=== PATIENT | female | born 1995 | race Caucasian/White ===

== ENCOUNTER 2023-06-01 19:28 | Outpatient (REF) | payer OTHER, SELFPAY ==
[2023-06-07 14:09] LABS: Age Gdln ACOG Testing Note (.); IGP, rfx Aptima HPV ASCU Note (.)
== END 2023-06-01 19:29 | disposition home or self-care (01) ==
LOC: LAB 19:28
PROVIDERS: Visit Provider Obstetrics & Gynecology
DX: Z01.419 Encounter for gynecological examination (general) (routine) without abnormal findings (principal)
CPT/HCPCS: G0145

== ENCOUNTER 2023-11-23 12:51 | Outpatient (OUT) | payer OTHER, SELFPAY ==
--- NOTE | 2023-11-23 12:57 | US_ITS ---
The [address] [address] Patient Name: DOUGLAS DUNCAN MRN: [id number] date: 1995 Sex: F Assigned Patient Location: Current Patient Location: Accession/Order Number: [id number] Exam Date: 11/23/2023 12:58 Report Date: 11/23/2023 14:23 At the request of: RAMSES BONILLA Procedure: US pelvis w/ transvaginal EXAMINATION: US pelvis w/ transvaginal HISTORY: Polycystic Ovarian Syndrome E28.2 COMPARISON: No relevant comparison available. TECHNIQUE: Transabdominal and/or transvaginal sonographic examination was performed as indicated by examination type. FINDINGS: UTERUS: Normal size and appearance. Uterus size: 6.5 x 3.5 x 4.0 cm ENDOMETRIUM: Normal homogeneous appearance. Endometrial thickness: 5 mm RIGHT OVARY: Normal size and appearance and contain several small follicles. Duplex Doppler demonstrates normal waveform and flow; resistive index 0.44. Ovary size: 3.3 x 3.1 x 2.4 cm LEFT OVARY: Normal size and appearance and contain several small follicles. Duplex Doppler demonstrates normal waveform and flow; resistive index 0.49. Ovary size: 4.0 x 1.6 x 2.2 cm CUL-DE-SAC: Unremarkable. No significant free fluid. BLADDER: Unremarkable. OTHER: None. US/US pelvis w/ transvaginal IMPRESSION: 1. Unremarkable uterus and endometrium. 2. Both ovaries are normal in appearance and contain several small follicles. No significantly increased number of small peripherally located follicles to suggest polycystic ovarian syndrome. Electronically authenticated by: SOY PINA Date: 11/23/2023 14:23
== END 2023-11-23 12:52 | disposition home or self-care (01) ==
LOC: US 12:51
PROVIDERS: Visit Provider Obstetrics & Gynecology
DX: E28.2 Polycystic ovarian syndrome (principal)
CPT/HCPCS: 76830; 76856

== ENCOUNTER 2024-03-09 15:52 | Outpatient (OUT) | payer OTHER, SELFPAY ==
[2024-03-09 16:08] LABS: BOX Test Reference Lab UNITY; BOX Test Sent Out UNITY
== END 2024-03-09 15:53 | disposition home or self-care (01) ==
PROVIDERS: PCP Internal Medicine; Visit Provider Obstetrics & Gynecology
DX: Z36.0 Encounter for antenatal screening for chromosomal anomalies (principal)
CPT/HCPCS: 36415

== ENCOUNTER 2024-06-23 07:23 | Outpatient (OUT) | payer OTHER, SELFPAY ==
[2024-06-23 08:29] LABS: Basophils Percent Auto 0.3 % (0.2-2.0); Eosinophils Absolute Auto 0.1 10^3/uL (0.0-0.7); Eosinophils Percent Auto 1.1 % (0.9-7.0); Hematocrit 36.6 % (36.0-48.0); Hemoglobin 12.8 g/dL (12.0-16.0); Immature Granulocytes Abs Auto 0.03 10^3/uL (0.00-0.03); Immature Granulocytes Pct Auto 0.3 % (0.0-0.5); Lymphocytes Absolute Auto 1.5 10^3/uL (1.2-3.8); Lymphocytes Percent Auto 16.8 % (20.5-60.0); Mean Corpuscular Hemoglobin 33.4 pg (26.7-34.0); Mean Corpuscular Volume 95.6 fL (81.0-99.0); Mean Platelet Volume 9.7 fL (9.5-13.5); Monocytes Absolute Auto 0.6 10^3/uL (0.3-0.8); Monocytes Percent Auto 6.8 % (1.7-12.0); Neutrophils Absolute Auto 6.7 10^3/uL (1.4-6.5); Neutrophils Percent Auto 74.7 % (43.0-75.0); Platelet Count 182 10^3/uL (150-450); Red Blood Count 3.83 10^6/uL (4.20-5.40); Red Cell Distribution Width 12.3 % (11.0-15.0)
[2024-06-23 08:35] LABS: Glucose 1 Hour 87 mg/dL (<130)
== END 2024-06-23 07:24 | disposition home or self-care (01) ==
LOC: LAB 07:24
PROVIDERS: PCP Internal Medicine; Visit Provider Obstetrics & Gynecology
DX: Z13.1 Encounter for screening for diabetes mellitus (principal)
CPT/HCPCS: 36415; 82950; 85025

== ENCOUNTER 2024-09-04 12:10 | Outpatient (REF) | payer OTHER, SELFPAY ==
--- OUTSIDE RECORDS SUMMARY | 2024-08-21 09:40 | XMS_ITS | Encounter Summary ---
Author Organization [facility] Address [address] [facility] [place] [address] Care Team Providers Care Single Pointed Operator Name Role Phone Unavailable Primary Care Provider Unavailabl e Reason for Visit * Reason Comments Routine Visit Encounter Details Date Type Department Care Team (Late st Contact Info) Description 08/21/2024 9:40 AM EDT Routine [facility] [address] [facility] [place] [address] Valerio Cantor, DO [address] [facility] [place] [address] Third trimester ([facility]); 34 weeks gestation of ([facility]) Social History Tobacco Use Types Packs/Day Years Used Date Smoking Tobacco: Never Smokeless Tobacco: Never Estimated Date of Delivery Comme nts Yes 10/03/2024 Based on last me nstrual period of 12/28/2023 Sex and Gender Information Value Date Recorded Sex Assigned at Not on file Legal Sex Female 11:47 PM EDT Gender Identity Not on file Sexual Orientation Not on file documented as of this encounter Last Filed Vital Signs Vital Sign Reading Time Taken Comments Blood Pressure 118/62 08/21/2024 10:18 AM EDT Pulse - - Temperature - - Respiratory Rate - - Oxygen Saturation - - Inhaled Oxygen Concentration - - Weight 65.3 kg (144 lb) 08/21/2024 10:18 AM EDT Height - - Body Mass Index 24.72 07/10/2024 9:30 AM EDT documented in this encounter Progress Notes * Laura Millan LPN - 08/21/2024 9:40 AM EDT Reason for Appointment: Patient ID: Carmelina Duke is a 29 y.o. female who presents for Routine Visit Patient presents today for Return OB appointment. MEDICATIONS Current Outpatient Medications Medication Instructions MAGnesium-Oxide 400 mg, Daily Vit-Fe Fumarate-FA (PNV FOLIC ACID + IRON PO) PNV Folic Acid + Iron tretinoin (Retin-A) 0.1 % cream APPLY CREAM TOPICALLY TO AFFECTED AREA NIGHTLY ALLERGIES Allergies Allergen Reactions Aldactone [Spironolactone] Rash Possible allergy; not likely as rash was only on the neck and has had rash since being off of Aldactone PROBLEMS Active Ambulatory Problems Diagnosis Date Noted No Active Ambulatory Problems Resolved Ambulatory Problems Diagnosis Date Noted No Resolved Ambulatory Problems No Additional Past Medical History HISTORY PAST MEDICAL HISTORY SOCIAL HISTORY History reviewed. No pertinent past medical history. Social History Tobacco Use Smoking status: Never Smokeless tobacco: Never Substance Use Topics Alcohol use: Not on file Drug use: Not on file FAMILY HISTORY No family history on file. SURGICAL HISTORY History reviewed. No pertinent surgical history. REVIEW OF SYSTEMS Review of Systems: Review of Systems Constitutional: Negative. HENT: Negative. Eyes: Negative. Respiratory: Negative. Cardiovascular: Negative. Gastrointestinal: Negative. Genitourinary: Negative. Musculoskeletal: Negative. Skin: Negative. Neurological: Negative. All other systems reviewed and are negative. Hematological: Negative. Endocrine: Negative. Allergic/Immunologic: Negative. OBJECTIVE Objective: Physical Exam Constitutional: Appearance: Normal appearance. She is well-developed. Cardiovascular: Rate and Rhythm: Normal rate and regular rhythm. Pulmonary: Effort: Pulmonary effort is normal. Breath sounds: Normal breath sounds. Abdominal: General: Bowel sounds are normal. There is no distension. Palpations: Abdomen is soft. Tenderness: There is no abdominal tenderness. There is no guarding or rebound. Musculoskeletal: General: No swelling. Normal range of motion. Right lower leg: No edema. Left lower leg: No edema. Neurological: Mental Status: She is alert and oriented to person, place, and time. Skin: General: Skin is warm and dry. Psychiatric: Mood and Affect: Mood normal. Behavior: Behavior normal. Vitals and nursing note reviewed. Exam conducted with a copy supervisor present. Vitals: Estimated body mass index is 24.72 kg/m?? as calculated from the following: Height as of 5/13/25: 5' 4 . Weight as of this encounter: 144 lb. BP: 118/62 Patient's last menstrual period was 12/28/2023. ASSESSMENT & PLAN ICD-10-CM 1. Third trimester ([facility] Z34.93 Urine dip 2. 34 weeks gestation of ([facility] Z3A.34 Urine dip Return OB: Patient presents today for a routine obstetrics appointment. Patient is currently 33w6d . Patient states she is doing well but has complaints of being tired due to current . Patient has verbalizes frequent movement. labor precautions was discussed/given and patient was instructed to perform kick counts three times a day. Orders Placed This Encounter Procedures Urine dip Follow Up: Patient is to return to office in 2 week for routine OB appointment. Documented by Laura Millan LPN on behalf of: Valerio Cantor DO documented in this encounter Plan of Treatment Upcoming Encounters Date Type Department Care Team (Late st Contact Info) Description 09/11/2024 9:40 AM EDT Routine [facility] [address] [place] [phone] Valerio Cantor, [address] [place] [address] 09/18/2024 9:40 AM EDT Routine [facility] [address] [place] [phone] Valerio Cantor [address] [place] [address] 09/25/2024 9:40 AM EDT Routine [facility] [address] [facility] [place] [id number] Valerio Cantor, DO [address] [facility] [place] [address] 10/02/2024 9:40 AM EDT Routine [facility] [address] [facility] [place] [address] Valerio Cantor, DO [address] [facility] [place] [address] documented as of this encounter Procedures Procedure Name Priority Date/Time Associated Diagnosis Comments POCT URINALYSIS DIPSTICK Routine 08/21/2024 10:24 AM EDT Third trimester ([facility]) 34 weeks gestation of ([facility]) documented in this encounter Results * Urine dip (08/21/2024 10:24 AM EDT) Color, UA Yellow Clarity, UA Clear Glucose, UA Negative Negative - 2000(110) ++++ mg/dL Bilirubin, UA Negative Negative - 4(70) +++ mg/dL Ketones, UA Negative Negative - 160(16) ++++ mg/dL Spec Grav, UA 1.020 1 - 1.03 Blood, UA Negative Negative - 50 Mika/mcL pH, UA 7.5 5 - 9 Protein, UA Negative Negative - 2000(20) ++++ mg/dL Urobilinogen, UA 0.2 0.2 - 12 mg/dL Leukocytes, UA Trace Negative - 500+++ Meena/mcL Nitrite, UA Negative Negative - Positive Urine 08/21/2024 10:2 4 AM EDT Valerio Cantor DO POINT OF CARE TEST ENTER/EDIT OR DERABLES Final Result documented in this encounter Visit Diagnoses Diagnosis Third trimester ([facility]) state, incidental 34 weeks gestation of ([facility]) documented in this encounter
--- OUTSIDE RECORDS SUMMARY | 2024-09-04 09:40 | XMS_ITS | Encounter Summary ---
Author Organization [facility] Address [address] [facility] [place] [address] Care Team Providers Care Pill Machine Operator Name Role Phone Unavailable Primary Care Provider Unavailabl e Reason for Visit * Reason Comments Routine Visit Encounter Details Date Type Department Care Team (Late st Contact Info) Description 09/04/2024 9:40 AM EDT Routine [facility] [address] [facility] [place] [address] Valerio Cantor, DO [address] [facility] [place] [address] Third trimester ([facility]); 35 weeks gestation of ([facility]); Heartburn during in third trimester ([facility]) Social History Tobacco Use Types Packs/Day Years [...] EDT Reason for Appointment: Patient ID: Carmelina uDke is a 29 y.o. female who presents [...] nursing note reviewed. Exam conducted with a gauge and instrument inspector present. Vitals: Estimated body mass index is 25.06 kg/m?? as calculated from the following: Height as of 25: 5' 4 . Weight as of this encounter: 146 lb. BP: 112/70 Patient's last menstrual period was 12/28/2023. ASSESSMENT & PLAN ICD-10-CM 1. Third trimester ([facility]) Z34.93 POCT urinalysis dipstick manually resulted CULTURE, GROUP B STREP WITH SUSCEPTIBLITY CULTURE, GROUP B STREP WITH SUSCEPTIBLITY 2. 35 weeks gestation of ([facility]) Z3A.35 Patient is doing well but has [...] AM EDT Routine [facility] [address] [facility] [place] [place] [address] Vlaerio Cantor DO [address] [place] [address] 09/18/2024 9:40 AM EDT Routine [facility] [address] [place] [address] Valerio Cantor DO [address] [place] [address] 09/25/2024 9:40 AM EDT Routine [facility] [address] [place] [address] Valerio Cantor, DO [address] [place], [place] [id number] 10/02/2024 9:40 AM EDT Routine [facility] [address] [facility] [place] [phone] Valerio Cantor, DO [address] [facility] [place] [address] Scheduled Orders Name Type Priority Associated Diagnoses Orde r Schedule CULTURE, GROUP B STREP WITH SUSCEPTIBLITY Lab Routine Third trimester ([facility]) Expected: 09/04/2024, Expires: 09/04/2025 documented as of this encounter Procedures Procedure Name Priority Date/Time Associated Diagnosis Comments POCT URINALYSIS DIPSTICK Routine 09/04/2024 10:04 AM EDT Third trimester ([facility]) documented in this encounter Results * POCT urinalysis dipstick manually resulted (09/04/2024 10:04 AM EDT) Color, UA Yellow Clarity, UA Clear Glucose, UA Negative Negative - 1999(110) ++++ mg/dL Bilirubin, UA Negative Negative - [...] this encounter Visit Diagnoses Diagnosis Third trimester ([facility]) state, incidental 35 weeks gestation of ([facility] Heartburn during in third trimester ([facility]) documented in this encounter
--- OUTSIDE RECORDS SUMMARY | 2024-09-04 09:43 | XMS_ITS ---
Author Name Auto Generated Organization OHIP Support Name Relationship Address Phone MANOHAR DUNCAN Next of Kin [address] [place] [address] + MANOHAR DUNCAN Next of Kin [address] [place] [address] + MANOHAR DUNCAN Next of Kin [address] [place] [address] + MANOHAR DUNCAN Next of Kin [address] [place] [address] + MANOHAR DUNCAN Next of Kin [address] [place] [address] + MANOHAR DUNCAN Next of Kin [address] [place] [address] + MANOHAR DUNCAN Next of Kin [address] [place] [address] + MANOHAR DUNCAN Next of Kin [address] [place] [address] + MANOHAR DUNCAN Next of Kin [address] [place] [address] + MANOHAR DUNCAN Next of Kin [address] [place] [address] + MANOHAR DUNCAN Next of Kin [address] [place] [address] + MANOHAR DUNCAN Next of Kin [address] [place] [address] + MANOHAR DUNCAN Next of Kin [address] [place] [address] + MANOHAR DUNCAN Next of Kin [address] [place] [address] + MANOHAR DUNCAN Next of Kin Unknown Unavailable NOT GIVEN Next of Kin Unknown Unavailable MANOHAR DUNCAN Next of Kin [address] [place] [address] + Care Team Providers Care Food Service Specialist Name Role Phone CHAD, RAMSES Attending Unavailable CHAD, RAMSES Attending Unavailable CHAD, RAMSES Attending Unavailable CHAD, RAMSES Attending Unavailable CHAD, RAMSES Attending Unavailable CHAD, RAMSES Attending Unavailable CHAD, RAMSES Attending Unavailable CHAD, RAMSES Referring Unavailable LIZZIE, GOLDIE Attending Unavailable CHAD, RAMSES Attending Unavailable CHAD, RAMSES Attending Unavailable [facility] Attending Unavailable PROBLEMS DATE TYPE CONDITION / CODE ATTENDING STATUS NADINE RCE 11/30/2023 Unknown Palpitations / R00.2(ICD-10) [facility] 11/30/2023 Unknown Acne vulgaris / L70.0(ICD-10) [facility] 11/30/2023 Unknown new patient / UNK(Unknown) [facility] PROCEDURES No Procedure Records Found RESULTS US OB FOLLOW UP TRANSABDOMINAL APPROACH Observed: 08/07/2024 8:52 AM Status: F Source: [facility] EPIC Order Comment: US OB SCAN FO R GROWTH Estimated Date of Delivery: 10/03/24 Gestational Age as of 07/10/2024: 27w6d EXAM: US OB FOLLOW UP TRANSA BDOMINAL APPROACH HISTORY: Inconsistent size. COMPARISON: Ob ultrasound 06/14/2024. TECHNIQUE: Two-dimensional transabdominal grayscale ultrasound imaging of the pelvis was performed. FINDINGS: Gestation: Single Presentation: Cephalic Cardiac Activity: 139 beats per minute Amniotic Fluid Index: 12.2 cm MEASUREMENTS: BPD: 7.9 cm EGA: 31 weeks 5 days HC: 29.0 cm EGA: 31 weeks 6 days AC: 28.0 cm EGA: 32 weeks 0 days FL: 6.0 cm EGA: 31 weeks 2 days HC/AC Ratio: 1.03 The gestational age by today's ultrasound is 31 weeks 5 days (+/- 16 days gestation). Estimated Weight: 1830 grams, +/- 275 grams ( 4 lb 1 oz). Weight Percentile for gestational age: 35 % IMPRESSION: 1. Single, live intrauterine gestation 31 weeks, 6 days by LMP. Today's ultrasound measurements correlate with a gestational age of 31 weeks 5 days. Estimated weight is 1830 grams, +/- 275 grams ( 4 lb 1 oz) which correlates to 35 %. KIMBERLYN is 10/04/2024. Interpreted by: Electronically signed by MALCOM SCHULTZ II, MD, PHD at 08-Aug-2024 08:23:33 AM [facility] US OB LIMITED 1+ FETUSES Observed: 06/14 7:54 AM Status: F Source: [facility] EPIC Order Comment: US OB INCOMPL ETE ANATOMY W US OB TRANSVAGINAL Estimated Date of Delivery: 10/03/24 Gestational Age as of 05/17/2024: 20w1d EXAM: US OB LIMITED 1+ FETUS ES HISTORY: Follow up anatomy. COMPARISON: Ob ultrasound 05/17/2024. TECHNIQUE: Two-dimensional transabdominal grayscale ultrasound imaging of the pelvis was performed. FINDINGS: Gestation: Single Presentation: Cephalic Cardiac Activity: 142 beats per minute Placental Location: Posterior with no sonographic abnormalities identified. Cervical canal: Not well visualized Amniotic Fluid: Appears adequate ANATOMY Four Chamber Heart: Unremarkable LVOT: Unremarkable RVOT: Unremarkable IMPRESSION: 1. Single, live intrauterine gestation 24 weeks, 1 days by LMP. KIMBERLYN is 10/03/2024. 2. Unremarkable follow-up anatomy of the four-chamber heart and outflow tracts. Interpreted by: Electronically signed by MALCOM SCHULTZ II, MD, PHD at 16-Jun-2024 06:46:29 PM [facility] US OB 14+ WEEKS ANATOMY SCAN Observed: 0 04/18/2024 11:31 AM Status: F Source: [facility] EPIC Order Comment: US OB ANATOMY SINGLE W US OB CERVICAL LENGTH Estimated Date of Delivery: 10/03/24 Gestational Age as of 04/18/2024: 16w0d EXAM: US OB 14+ WEEKS ANATOM Y SCAN HISTORY: anatomy. COMPARISON: Ob ultrasound 03/01/2024. TECHNIQUE: Two-dimensional transabdominal grayscale ultrasound imaging of the pelvis was performed. FINDINGS: Gestation: Single Presentation: Breech Cardiac Activity: 153 beats per minute Placental Location: Posterior with no sonographic abnormalities identified. Distance from Placental Tip to Cervix: 4 cm Cervical Length: 3.8 cm Amniotic Fluid: Appears adequate MEASUREMENTS: BPD: 4.3 cm EGA: 19 weeks 0 days HC: 16.5 cm EGA: 19 weeks 1 days AC: 15.7 cm EGA: 20 weeks 6 days FL: 3.2 cm EGA: 19 weeks 6 days HC/AC Ratio: 1.05 The gestational age by today's ultrasound is 19 weeks 5 days (+/- 10 days gestation). Estimated Weight: 339 grams, +/- 51 grams ( 0 lb 12 oz). Weight Percentile for gestational age: 49 % ANATOMY C-Spine: Unremarkable T-Spine: Unremarkable L-Spine: Unremarkable Sacrum: Unremarkable Four Chamber Heart: Unremarkable LVOT: Not visualized RVOT: Not visualized Stomach: Unremarkable Kidneys: Unremarkable Bladder: Unremarkable Diaphragm: Unremarkable Cord insertion: Unremarkable Cord vessels: Three Lateral Ventricles: Unremarkable Cerebellum: Unremarkable Cisterna Magna: Unremarkable Posterior Fossa: Unremarkable Right Femur: Unremarkable Left Femur: Unremarkable Right Tib/Fib: Unremarkable Left Tib/Fib: Unremarkable Right Rad/Ulnar: Unremarkable Left Rad/Ulnar: Unremarkable Right Humerus: Unremarkable Left Humerus: Unremarkable Nose/Lips: Unremarkable Orbits: Unremarkable IMPRESSION: 1. Single, live intrauterine gestation 20 weeks, 1 days by LMP. Today's ultrasound measurements correlate with a gestational age of 19 weeks 5 days. Estimated weight is 339 grams, +/- 51 grams ( 0 lb 12 oz) which correlates to 49 %. KIMBERLYN is 10/06/2024. 2. Unremarkable anatomy with limited visualization of the outflow tracts. A short-term follow-up ultrasound is recommended. Electronically Signed:Electronically signed by MALCOM SCHULTZ II, MD, PHD at 18-May-2024 08:29:54 PM [facility] US OB TRANSVAGINAL Observed: 03/01/2024 8:31 AM Status: F Source: [facility] TITLE OF EXAM: US OB TRANSVA GINAL REASON FOR EXAM: [id number]&NASEEM&RADIOLOGY GR TECHNIQUE: Grayscale, color, and M-mode Doppler evaluation of the pelvis. COMPARISON: None. PREGNANCIES: : 2, Para: 1, Aborta: 0 LMP: 12/28/2023 KIMBERLYN by LMP: 10/03/2024 GA by LMP: 9 weeks, 1 day FINDINGS: AUA: 8 weeks, 5 days (+/-5 days) KIMBERLYN by US: 10/06/2024 Uterus: There is a gestational sac and 0.4 cm yolk sac within the uterine body/fundus. Live embryo within the gestational sac without evident abnormality. Gestational sac measures 5.2 x 2.5 x 4.2 cm (9 weeks, 2 days). Mayflower rump length is 2.1-2.2 cm (8 weeks, 5-6 days). heart rate is 172 bpm. No appreciable subchorionic hemorrhage or other abnormality. Cervical length is 3.7 cm. Right ovary: 3.1 x 1.9 x 3.8 cm (volume 11.7 mL). Present color flow. Left ovary: 2.6 x 1.2 x 2.8 cm (volume 4.4 mL). Present color flow IMPRESSION: 1. Single live intrauterine gestation sonographically measuring 8 weeks, 5 to 6 days. 2. No sonographically appreciable abnormality of the or maternal structures. DICTATED ON: 03/01/2024 11:25 AM This report has been electronically signed and approved by the interpreting radiologist. ALLERGIES DATE TYPE / CODE NAME / CODE REACTION SEVERITY SOURCE Drug Class/234575932(O MED CT) NO KNOWN ALLERGIES [facility] ENCOUNTERS ADMIT/DISCHARGE ACCOUNT NUMBER ADMITTING ENCOUNTER CLASS LOCATION SOURCE 09/04/2024/09/05/19 [id number] Ambulatory Building:[facility] 08/21/2024/08/22/19 [id number] Ambulatory Building:[facility] 08/07/2024/08/08/19 25 [id number] Ambulatory Building:[facility] 08/07/2024/08/08/19 25 [id number] Ambulatory Building:[facility] 07/25/2024/07/26/19 [id number] Ambulatory Building:[facility] 07/10/2024/07/11/19 [id number] Ambulatory Building:[facility] 06/14/2024/06/15/19 [id number] Ambulatory Building:[facility] 06/14/2024/04/17/20 25 [id number] Ambulatory Building:[facility] EP[facility] 05/17/2024/05/18/19 25 [id number] Ambulatory Building:[facility] 05/17/2024/05/18/19 25 [id number] Ambulatory Building:[facility] 04/18/2024/04/18/19 25 [id number] Ambulatory Building:[facility] 03/21/2024/03/21/19 25 [id number] Ambulatory Building:[facility] 03/01/2024/03/01/19 25 [id number] Ambulatory Building:[facility] 03/01/2024/03/01/19 25 [id number] Ambulatory Building:[facility] 11/30/2023/11/30/19 24 [id number] Ambulatory Buildin 18 [facility] 11/09/2023/11/09/19 24 [id number] Ambulatory Building:[facility] EPIC PAYERS ENCOUNTER GUARANTOR PAYER SUBSCRIBER SOURCE 09/04/2024 DOUGLAS RODRÍGUEZ: [place] [address]Ifj: (HP) Primary Insurance:UC HEALTHPolicy Number: [id number] Date:2013-02-28 MANOHAR LOVELACEERDOB: [id number] [place] [address] [facility] 08/21/2024 DOUGLAS RODRÍGUEZ: [place] [address]Xci: (HP) Primary Insurance:UC HEALTHPolicy Number: [id number] Date:2013-02-28 MANOHAR DESIREEB: [id number] [place] [address] [facility] 08/07/2024 DOUGLAS RAMÍREZB: [place] [address]Ibl: (HP) Primary Insurance:UC HEALTHPolicy Number: [id number] Date:2013-02-28 [facility]: [id number] [place] [address] [facility] EP[facility] 08/07/2024 DOUGLASSAURABH LOVELACEERDOB: [place] [address]Zaq: (HP) Primary Insurance:UC HEALTHPolicy Number: [id number] Date:2013-02-28 [facility]: [id number] [place] [address] [facility] EP[facility] 07/25/2024 DOUGLAS LOVELACEERDOB: [place] [address]Wjt: (HP) Primary Insurance:UC HEALTHPolicy Number: [id number] Date:2013-02-28 [facility]: [id number] [place] [address] [facility] EPIC 07/10/2024 DOUGLAS DUNCANDOB: [place] [address]Yjf: (HP) Primary Insurance:UC HEALTHPolicy Number: [id number] Date:2013-02-28 [facility]: [id number] [place] [address] [facility] EP[facility] 06/14/2024 DOUGLAS LOVELACEERDOB: [place] [address]Xie: (HP) Primary Insurance:[facility] HEALTHCAREPolicy Number: [id number] Date:2013-02-28 [facility]: [id number] [place] [address] [facility] EP[facility] 06/14/2024 DOUGLAS RAMÍREZB: [place] [address]Klo: (HP) Primary Insurance:UC HEALTHPolicy Number: [id number] Date:2013-02-28 [facility]: [id number] [place] [address] [facility] EP[facility] 05/17/2024 DOUGLASSAURABH LOVELACEERDOB: [place] [address]Dai: (HP) Primary Insurance:UC HEALTHPolicy Number: [id number] Date:2013-02-28 [facility]: [id number] [place] [address] [facility] EP[facility] 05/17/2024 DOUGLAS LOVELACEERDOB: [place] [address]Ccn: (HP) Primary Insurance:UC HEALTHPolicy Number: [id number] Date:2013-02-28 [facility]: [id number] [place] [address] [facility] EP[facility] 04/18/2024 DOUGLAS LOVELACEERDOB: [place] [address]Gtd: (HP) Primary Insurance:UC HEALTHPolicy Number: [id number] Date:2013-02-28 [facility]: [id number] [place] [address] [facility] EP[facility] 03/21/2024 DOUGLAS LOVELACEERDOB: [place] [address]Zvb: (HP) Primary Insurance:[facility] HEALTHCAREPolicy Number: [id number] Date:2013-02-28 [facility]: [id number] [place] [address] [facility] EPIC 03/01/2024 DOUGLAS DUNCANDOB: [place] [address]Agw: (HP) Primary Insurance:UC HEALTHPolicy Number: [id number] Date:2013-02-28 MANOHAR LOVELACEHARIKA: [id number] [place] [address] [facility] 03/01/2024 DOUGLAS DESIREEB: [place] [address]Gkg: (HP) Primary Insurance:UC HEALTHPolicy Number: [id number] Date:2013-02-28 MANOHAR LOVELACEARNALDOB: [id number] [place] [address] [facility] 11/30/2023 DOUGLAS DESIREEB: [address] [place], [place] [address]Ito: (HP) [facility]: [id number] Date:2013-02-28 MANOHAR LOVELACEARNALDOB: [id number] [address] [place], [place] [address]Lxa: (HP) () [facility] 11/09/2023 DOUGLAS LOVELACEARNLADOB: [place] [address]Ztx: (HP) Primary Insurance:UC HEALTHPolicy Number: [id number] Date:2013-02-28 MANOHAR DESIREEB: [id number] [place] [address] [facility]
--- OUTSIDE RECORDS SUMMARY | 2024-09-04 12:12 | XMS_ITS | Encounter Summary ---
Author Organization [facility] Healthcare Address [address] [facility] [address] [place] [address] Care Team Providers Care Senior Net Engineer Name Role Phone Unavailable Primary Care Provider Unavailabl e Encounter Details Date Type Department Care Team (Late st Contact Info) Description 01/20/2024 Abstract [facility] OB [address] [place] [address] Valerio Cantor DO [address] [place], [facility]11 Social History Tobacco Use Types Packs/Day Years Used Date Smoking Tobacco: Never Smokeless Tobacco: Never Comments No Sex and Gender Information Value Date Recorded Sex Assigned at Not on file Legal Sex Female 11:47 PM EDT Gender Identity Not on file Sexual Orientation Not on file documented as of this encounter Plan of Treatment Upcoming Encounters Date Type Department Care Team (Late st Contact Info) Description 09/11/2024 9:40 AM EDT Routine [facility] B[facility] OB [address] [place] [address] Valerio Cantor DO [address], [facility]11 09/18/2024 9:40 AM EDT Routine [facility] OB [address] [place] [address] Valerio Cantor DO [address], [facility]11 09/25/2024 9:40 AM EDT Routine [facility] OB [address] [facility] [place] [phone] Valerio Cantor, [address] [place] [place] [address] 10/02/2024 9:40 AM EDT Routine [facility] OB [address] [place] [address] [place] [phone] Valerio Cantor, [address] [place] [address] documented as of this encounter Visit Diagnoses Not on filedocumented in this encounter
--- OUTSIDE RECORDS SUMMARY | 2024-09-04 12:12 | XMS_ITS | Encounter Summary ---
Author Organization [facility] Healthcare Address [address] [facility] [address] Care Team Providers Care Lathe Machine Operator Name Role Phone Unavailable Primary Care Provider Unavailabl e Encounter Details Date Type Department Care Team (Late st Contact Info) Description 11/16/2023 Abstract [facility] BCP OB [address] [place] [address] Valerio Cantor DO [address], [facility]11 Social History Tobacco Use Types Packs/Day Years [...] Routine [facility] B[facility] OB [address] [place] [address] Valerio Cantor DO [address], [facility]11 09/18/2024 9:40 AM EDT Routine [facility] OB [address] [place] [address] Valerio Cantor DO [address], [facility]11 09/25/2024 9:40 AM EDT Routine [facility] OB [address] [facility] [place] [phone] Valerio Cantor, [address] [place] [address] 10/02/2024 9:40 AM EDT Routine [facility] OB [address] [place] [address] [place] [phone] Valerio Cantor, [address] [place] [address] documented as of this encounter Visit Diagnoses Not on filedocumented in this encounter
--- OUTSIDE RECORDS SUMMARY | 2024-09-04 12:12 | XMS_ITS | Encounter Summary ---
Author Organization [facility] Healthcare Address [address] [facility] [place] [address] Care Team Providers Care Websphere Process Server Developer Name Role Phone Unavailable Primary Care Provider Unavailabl e Encounter Details Date Type Department Care Team (Late st Contact Info) Description 11/09/2023 Abstract [facility] BCP OB [address] [place] [address] Valerio Cantor DO [address], [facility]11 Social History Tobacco Use Types Packs/Day [...] Routine [facility] BCP OB [address] [place] [address] Valerio Cantor DO [address], [facility]11 09/18/2024 9:40 AM EDT Routine [facility] B[facility] OB [address] [place] [address] Valerio Cantor DO [address], [facility]11 09/25/2024 9:40 AM EDT Routine [facility] OB [address] [facility] [place] [phone] Valerio Cantor, [address] [place] [address] 10/02/2024 9:40 AM EDT Routine [facility] OB [address] [place] [address] [place] [phone] Valerio Cantor, [address] [place] [address] documented as of this encounter Visit Diagnoses Not on filedocumented in this encounter
--- OUTSIDE RECORDS SUMMARY | 2024-09-04 12:12 | XMS_ITS | Encounter Summary ---
Author Organization [facility] Healthcare Address [address] [facility] [place] [address] Care Team Providers Care Snow Remover Name Role Phone Unavailable Primary Care Provider Unavailabl e Encounter Details Date Type Department Care Team (Late Contact Info) Description 08/21/2024 Romeboo flowsheet [facility] B[facility] OB [address] [place] [address] Valerio Cantor DO [address] [place], [facility]11 Social History Tobacco Use Types Packs/Day Years [...] Encounters Date Type Department Care Team (Late Contact Info) Description 09/11/2024 9:40 AM EDT Routine [facility] OB [address] [place] [address] Valerio Cantor DO [address] [place] [address] [place] [address] 09/18/2024 9:40 AM EDT Routine [facility] OB [address] [place] [address] Valerio Cantor, [address] [place] [address] 09/25/2024 9:40 AM EDT Routine [facility] OB [address] [place] [address] [place] [address] Valerio Cantor, [address] [place], [place] [id number] 10/02/2024 9:40 AM EDT Routine [facility] OB [address] [place] [address] [place] [address] [place], [place] [phone] documented as of this encounter Visit Diagnoses Not on filedocumented in this encounter
--- OUTSIDE RECORDS SUMMARY | 2024-09-04 12:12 | XMS_ITS | Encounter Summary ---
Author Organization [facility] Healthcare Address [address] [facility] [place] [address] Care Team Providers Care Sql Developer Dba Name Role Phone Unavailable Primary Care Provider Unavailabl e Encounter Details Date Type Department Care Team (Late st Contact Info) Description 11/24/2023 Abstract [facility] BCP OB [address] [place] [address] Valerio Cantor DO [address], [facility]11 Social History Tobacco Use Types Packs/Day Years [...] Routine [facility] BCP OB [address] [place] [address] Valerio Cantor DO [address], [facility]11 09/18/2024 9:40 AM EDT Routine [facility] B[facility] OB [address] [place] [address] Valerio Cantor DO [address], [facility]11 09/25/2024 9:40 AM EDT Routine [facility] OB [address] [facility] [place] [phone] Valerio Cantor, [address] [place] [address] 10/02/2024 9:40 AM EDT Routine [facility] OB [address] [place] [address] [place] [phone] Valerio Cantor, [address] [place] [address] documented as of this encounter Visit Diagnoses Not on filedocumented in this encounter
--- OUTSIDE RECORDS SUMMARY | 2024-09-04 12:12 | XMS_ITS | Encounter Summary ---
Author Organization [facility] Healthcare Address [address] [facility] [place] [address] Care Team Providers Care Environmental Services Tech Name Role Phone Unavailable Primary Care Provider Unavailabl e Encounter Details Date Type Department Care Team (Late st Contact Info) Description 12/14/2023 Abstract [facility] B[facility] OB [address] [place] [address] Valerio Cantor DO [address], [facility]11 Social History Tobacco Use Types Packs/Day [...] Routine [facility] BCP OB [address] [place] [address] Valerio Cantor DO [address], [facility]11 09/18/2024 9:40 AM EDT Routine [facility] B[facility] OB [address] [place] [address] Valerio Cantor DO [address], [facility]11 09/25/2024 9:40 AM EDT Routine [facility] B[facility] OB [address] [facility] [place] [phone] Valerio Cantor, [address] [place] [address] 10/02/2024 9:40 AM EDT Routine [facility] OB [address] [place] [address] [place] [phone] Valerio Cantor, [address] [place] [address] documented as of this encounter Visit Diagnoses Not on filedocumented in this encounter
--- OUTSIDE RECORDS SUMMARY | 2024-09-04 12:12 | XMS_ITS | Encounter Summary ---
Author Organization [facility] Address [address] [facility] [place] [address] Care Team Providers Care Manager Event Name Role Phone Unavailable Primary Care Provider Unavailabl e Encounter Details Date Type Department Care Team (Late st Contact Info) Description 11/23/2023 Clinisync Result Encounter [facility] External Department Unsolicited Ramses Cantor, DO [address], [facility]11 Social History Tobacco Use Types Packs/Day Years [...] BCP [place] [address] [place] [address] Ramses Cantor, DO [address], [place] [id number] 09/18/2024 9:40 AM EDT Routine [facility] BCP OB [address] [place] [address] Ramses Cantor, DO [address] [place] [address] 09/25/2024 9:40 AM EDT Routine [facility] BCP OB [address] [facility] [phone] Ramses Cantor, [address] [place] [address] 10/02/2024 9:40 AM EDT Routine [facility] BCP OB [address] [facility] [phone] Ramses Cantor, [address] [place] [address] documented as of this encounter Procedures Procedure Name Priority Date/Time Associated Diagnosis Comments US PELVIS W/ TRANSVAGINAL 11/23/2023 2:23 PM EDT documented in this encounter Results * US PELVIS W/ TRANSVAGINAL (11/23/2023 2:23 PM EDT) Anatomical Region Laterality Modality Other 11/23/2023 2:23 PM EDT Narrative 11/23/2023 2:26 PM EDT The [address] [address] Ultrasound Report Signed Patient: CARMELINA DUKE MR#: [id number] : 1995 Acct:[id number] Age/Sex: 28 / F ADM Date: 11/23/23 Loc: US Attending Dr: Ramses Cantor D.O. Ordering Physician: Ramses Cantor D.O. Date of Service: 11/23/23 Procedure(s): US pelvis w/ transvaginal Accession Number(s): [id number] cc: Ramses Cantor D.O.; Physician,Non-Staff MTimur The [address] [address] Patient Name: CARMELINA DUKE MRN: [id number] date: 1995 Sex: F Assigned Patient Location: US Current Patient Location: US Accession/Order Number: [id number] Exam Date: 11/23/2023 12:58 Report Date: 11/23/2023 14:23 At the request of: RAMSES CANTOR Procedure: US pelvis w/ transvaginal EXAMINATION: US pelvis w/ transvaginal HISTORY: Polycystic Ovarian Syndrome E28.2 COMPARISON: No relevant comparison available. TECHNIQUE: Transabdominal and/or transvaginal sonographic examination was performed as indicated by examination type. FINDINGS: UTERUS: Normal size and appearance. Uterus size: 6.5 x 3.5 x 4.0 cm ENDOMETRIUM: Normal homogeneous appearance. Endometrial thickness: 5 mm RIGHT OVARY: Normal size and appearance and contain several small follicles. Duplex Doppler demonstrates normal waveform and flow; resistive index 0.44. Ovary size: 3.3 x 3.1 x 2.4 cm LEFT OVARY: Normal size and appearance and contain several small follicles. Duplex Doppler demonstrates normal waveform and flow; resistive index 0.49. Ovary size: 4.0 x 1.6 x 2.2 cm CUL-DE-SAC: Unremarkable. No significant free fluid. BLADDER: Unremarkable. OTHER: None. US/US pelvis w/ transvaginal IMPRESSION: 1. Unremarkable uterus and endometrium. 2. Both ovaries are normal in appearance and contain several small follicles. No significantly increased number of small peripherally located follicles to suggest polycystic ovarian syndrome. Electronically authenticated by: AAYUSH NAVARRO Date: 11/23/2023 14:23 Dictated By: Aayush Navarro M.D. Signed By: 11/23/23 1426 DD/ 1423 TD/TT: [facility] Curator: Procedure Note Radiology, Radiologist, MD - 11/23/2023 [place] [address] Ultrasound Report Signed Patient: CARMELINA DUKE#: [id number] : 1995Acct:[id number] Age/Sex: 28 / FADM Date: 11/23/23 Loc: US Attending Dr: Ramses Cantor D.O. Ordering Physician: Ramses Cantor D.O. Date of Service: 11/23/23 Procedure(s): US pelvis w/ transvaginal Accession Number(s): [id number] cc: Ramses Cantor D.O.; Physician,Non-Staff [place] [address] [address] Patient Name: CARMELINA DUKE MRN: [id number] date: 1995 Sex: F Assigned Patient Location: US Current Patient Location: US Accession/Order Number: [id number] Exam Date: 11/23/2023 12:58 Report Date: 11/23/2023 14:23 At the request of: RAMSES CANTOR Procedure: US pelvis w/ transvaginal EXAMINATION: US pelvis w/ transvaginal HISTORY: Polycystic Ovarian Syndrome E28.2 COMPARISON: No relevant comparison available. TECHNIQUE: Transabdominal and/or transvaginal sonographic examination was performed as indicated by examination type. FINDINGS: UTERUS: Normal size and appearance. Uterus size: 6.5 x 3.5 x 4.0 cm ENDOMETRIUM: Normal homogeneous appearance. Endometrial thickness: 5 mm RIGHT OVARY: Normal size and appearance and contain several smallfollicles. Duplex Doppler demonstrates normal waveform and flow; resistive index0.44. Ovary size: 3.3 x 3.1 x 2.4 cm LEFT OVARY: Normal size and appearance and contain several smallfollicles. Duplex Doppler demonstrates normal waveform and flow; resistive index0.49. Ovary size: 4.0 x 1.6 x 2.2 cm CUL-DE-SAC: Unremarkable. No significant free fluid. BLADDER: Unremarkable. OTHER: None. US/US pelvis w/ transvaginal IMPRESSION: 1. Unremarkable uterus and endometrium. 2. Both ovaries are normal in appearance and contain several smallfollicles. No significantly increased number of small peripherally located folliclesto suggest polycystic ovarian syndrome. Electronically authenticated by: AAYUSH NAVARRO Date: 11/23/2023 14:23 Dictated By: Aayush Navarro M.D. Signed By:11/23/23 1426 DD/ 1423 TD/TT: [facility] [employer] [facility] Curator: us Ramses Cantor DO [facility] Final Result documented in this encounter Visit Diagnoses Not on filedocumented in this encounter
--- OUTSIDE RECORDS SUMMARY | 2024-09-04 12:12 | XMS_ITS | Encounter Summary ---
Author Organization [facility] Address [address] [facility] [place] [address] Care Team Providers Care Dishwashing Machine Operator Name Role Phone Unavailable Primary Care Provider Unavailabl e Encounter Details Date Type Department Care Team (Late Contact Info) Description 09/04/2024 Bamboo flowsheet [facility] BCP OB [address] [place] [address] Valerio Cantor DO [address] [place], [facility]11 Social History Tobacco Use Types Packs/Day [...] Routine [facility] BCP OB [address] [place] [address] Valerio Cantor DO [address] [place] [address] [place] [address] 09/18/2024 9:40 AM EDT Routine [facility] BCP OB [address] [place] [address] Valerio Cantor, [address] [place] [address] 09/25/2024 9:40 AM EDT Routine [facility] BCP OB [address] [place] [address] [place] [address] Valerio Cantor, [address] [place], [place] [phone] 10/02/2024 9:40 AM EDT Routine [facility] BCP OB [address] [place] [address] [place] [address] [place], [place] [phone] documented as of this encounter Visit Diagnoses Not on filedocumented in this encounter
--- OUTSIDE RECORDS SUMMARY | 2024-09-04 12:12 | XMS_ITS | Encounter Summary ---
Author Organization [facility] Address [address] [facility] [address] Care Team Providers Care Shank Maker Name Role Phone Unavailable Primary Care Provider Unavailabl e Encounter Details Date Type Department Care Team (Late st Contact Info) Description 03/21/2024 Abstract [facility] BCP OB [address] [place] [address] Valerio Cantor DO [address], [facility]11 Social History Tobacco Use Types Packs/Day [...] Routine [facility] BCP OB [address] [place] [address] Valerio Cantor DO [address], [place] [phone] 09/18/2024 9:40 AM EDT Routine [facility] BCP OB [address] [place] [address] Valerio Cantor DO [address] [place] [address] 09/25/2024 9:40 AM EDT Routine [facility] BCP OB [address] [place] [address] [place] [phone] Valerio Cantor, [address] [place], [place] [phone] 10/02/2024 9:40 AM EDT Routine [facility] BCP OB [address] [place] [address] [place] [address] Valerio Cantor, [address] [place], [place] [phone] documented as of this encounter Visit Diagnoses Not on filedocumented in this encounter
--- OUTSIDE RECORDS SUMMARY | 2024-09-04 12:12 | XMS_ITS | Encounter Summary ---
Author Organization [facility] Healthcare Address [address] [facility] [place] [address] Care Team Providers Care Health Science Writer Name Role Phone Unavailable Primary Care Provider Unavailabl e Encounter Details Date Type Department Care Team (Late st Contact Info) Description 04/19/2024 Abstract [facility] BCP OB [address] [place] [address] Valerio Cantor DO [address], [facility] Social History Tobacco Use Types Packs/Day [...] Routine [facility] BCP OB [address] [place] [address] Valerio Cantor DO [address], [place] [phone] 09/18/2024 9:40 AM EDT Routine [facility] BCP OB [address] [place] [address] Valerio Cantor DO [address] [place] [address] 09/25/2024 9:40 AM EDT Routine [facility] BCP OB [address] [place] [address] [place] [phone] Valerio Cantor, [address] [place], [place] [phone] 10/02/2024 9:40 AM EDT Routine [facility] BCP OB [address] [place] [address] [place] [address] Valerio Cantor, [address] [place], [place] [phone] documented as of this encounter Visit Diagnoses Not on filedocumented in this encounter
--- OUTSIDE RECORDS SUMMARY | 2024-09-04 12:13 | XMS_ITS | Encounter Summary ---
Author Organization [facility] Healthcare Address [address] [facility] [address] Care Team Providers Care Apartment Maintenance Name Role Phone Unavailable Primary Care Provider Unavailabl e Encounter Details Date Type Department Care Team (Late st Contact Info) Description 03/19/2024 Abstract [facility] BCP OB [address] [place] [address] Valerio Cantor DO [address], [facility]11 Social History Tobacco Use Types Packs/Day [...] Routine [facility] BCP OB [address] [place] [address] Valerio Cantor DO [address], [place] [phone] 09/18/2024 9:40 AM EDT Routine [facility] BCP OB [address] [place] [address] Valerio Cantor DO [address] [place] [address] 09/25/2024 9:40 AM EDT Routine [facility] BCP OB [address] [place] [address] [place] [phone] Valerio Cantor, [address] [place], [place] [phone] 10/02/2024 9:40 AM EDT Routine [facility] BCP OB [address] [place] [address] [place] [address] Valerio Cantor, [address] [place], [place] [phone] documented as of this encounter Visit Diagnoses Not on filedocumented in this encounter
--- OUTSIDE RECORDS SUMMARY | 2024-09-04 12:13 | XMS_ITS | Clinical Summary ---
Author Organization [facility] Address [address] [place] [address] Care Team Providers Care Dispersion Mixer Name Role Phone Unavailable Primary Care Provider Unavailabl e Allergies Active Allergy Reactions Criticality Noted Date Comments Spironolactone Rash Low 03/11/2023 Possible allergy; not likely as rash was only on the neck and has had rash since being off of Aldactone Medications Vit-Fe Fumarate-FA (PNV FOLIC ACID + IRON PO) PNV Folic Acid + Iron Active MAGnesium-Oxide 400 (240 Mg) MG tablet Take 400 mg by mouth Daily 5 Active tretinoin (Retin-A) 0.1 % cream APPLY CREAM TOPICALLY TO AFFECTED AREA NIGHTLY 4 Active omeprazole (PriLOSEC) [address] Paige ons:Heartburn during in third trimester ([facility]) Take 1 capsule (20 mg) by mouth in the morning. Take before meals. Do not crush or chew. 30 capsule 11 5 09/05/19 26 Active Active Problems Estimated Date of Delivery Comme nts Yes 10/03/2024 Based on last me nstrual period of 12/28/2023 No known active problems Encounters Date Type Department Care Team Description 09/04/2024 9:40 AM EDT Routine [facility] BCP OB [address] [place] [address] [place] [address] Valerio Cantor, Third trimester ([facility]); 35 weeks gestation of ([facility]); Heartburn during in third trimester ([facility]) 09/04/2024 Bamboo flowsheet NOM[facility] [address] [place] [address] Valerio Cantor, 08/21/2024 9:40 AM EDT Routine NOM[facility] [address] [place] [address] Valerio Cantor, DO Third trimester ([facility]); 34 weeks gestation of ([facility]) 08/21/2024 Bamboo flowsheet NOM[facility] [address] [place] [address] Valerio Cantor, DO 08/20/2024 Travel 08/07/2024 9:30 AM EDT Routine NOM[facility] [address] [place] [address] Diana Olivares PA Third trimester ([facility]); 31 weeks gestation of ([facility]) 08/07/2024 9:00 AM EDT Ancillary Procedure NOM[facility] [address] [place] [address] size inconsistent with dates ([facility]) 08/06/2024 Travel 07/25/2024 1:10 PM EDT Routine NOM[facility] [address] [place] [address] Valerio Cantor, DO 30 weeks gestation of ([facility]); Third trimester ([facility]) 07/25/2024 Bamboo flowsheet NOM[facility] [address] [place] [address] Valerio Cantor, 07/24/2024 Travel 07/10/2024 9:10 AM EDT Routine NOM[facility] [address] [place] [address] Valerio Cantor, Second trimester ([facility]); 27 weeks gestation of ([facility]); size inconsistent with dates ([facility]) 07/10/2024 Bamboo flowsheet NOM[facility] [address] [place] [phone] Valerio Cantor, 07/09/2024 Travel 06/23/2024 Clinisync Result Encounter N[facility]S External Department Unsolicited Valerio Cantor, 06/14/2024 8:30 AM EDT Routine NOM[facility] [address] [place] [address] Valerio Cantor, Second trimester ([facility]); 24 weeks gestation of ([facility]) 06/14/2024 8:00 AM EDT Ancillary Procedure [facility] [address] [place] [address] Encounter for follow-up ultrasound of anatomy ([facility]) 06/13/2024 Travel from Last 3 Months Social History Tobacco Use Types Packs/Day Years Used Date Smoking Tobacco: Never Smokeless Tobacco: Never Tobacco Cessation:Counseling Given: Not Answered Estimated Date of Delivery Comme nts Yes 10/03/2024 Based on last me nstrual period of 12/28/2023 Sex and Gender Information Value Date Recorded Sex Assigned at Not on file Legal Sex Female 11:47 PM EDT Gender Identity Not on file Sexual Orientation Not on file Last Filed Vital Signs Vital Sign Reading Time Taken Comments Blood Pressure 112/70 09/04/2024 10:03 AM EDT Pulse - - Temperature - - Respiratory Rate - - Oxygen Saturation - - Inhaled Oxygen Concentration - - Weight 66.2 kg (146 lb) 09/04/2024 10:03 AM EDT Height 162.6 cm (5' 4 ) 07/10/2024 9:30 AM EDT Body Mass Index 25.06 07/10/2024 9:30 AM EDT Plan of Treatment Upcoming Encounters Date Type Department Care Team (Late st Contact Info) Description 09/11/2024 9:40 AM EDT Routine [facility] [address] [place] [phone] Valerio Cantor, [address] [place], [place] [phone] 09/18/2024 9:40 AM EDT Routine [facility] BCP OB [address] [place] [address] [place] [phone] Valerio Cantor, DO [address] [facility] [address] 09/25/2024 9:40 AM EDT Routine [facility] BCP OB [address] [place] [address] [place] [address] Valerio Cantor, DO [address] [facility] [address] 10/02/2024 9:40 AM EDT Routine [facility] BCP OB [address] [place] [address] [place] [phone] aVlerio Cantor, DO [address] [facility] [address] Procedures Procedure Name Priority Date/Time Associated Diagnosis Comments POCT URINALYSIS DIPSTICK Routine 09/04/2024 10:04 AM EDT Third trimester ([facility]) POCT URINALYSIS DIPSTICK Routine 08/21/2024 10:24 AM EDT Third trimester ([facility]) 34 weeks gestation of ([facility]) POCT URINALYSIS DIPSTICK Routine 08/07/2024 10:05 AM EDT Third trimester ([facility]) OB FOLLOW UP TRANSABDOMINAL APPROACH Routine 08/07/2024 9:20 AM EDT size inconsistent with dates ([facility]) POCT URINALYSIS DIPSTICK Routine 07/25/2024 1:14 PM EDT 30 weeks gestation of ([facility]) Third trimester ([facility]) POCT URINALYSIS DIPSTICK Routine 07/10/2024 9:30 AM EDT Second trimester ([facility]) GLUCOSE 1 HOUR Routine 06/23/2024 8:24 AM EDT ALL CBC WITH AUTO DIFF Routine 8:24 AM EDT POCT URINALYSIS DIPSTICK Routine 06/14/2024 8:39 AM EDT Second trimester ([facility]) US OB LIMITED 1+ FETUSES Routine 06/14/2024 8:21 AM EDT Encounter for follow-up ultrasound of anatomy ([facility]) from Last 3 Months Results * POCT urinalysis dipstick manually resulted (09/04/2024 10:04 AM EDT) Only the most recent of6 resultswithin the time period is included. Color, UA Yellow Clarity, UA Clear Glucose, [...] CARE TEST ENTER/EDIT OR DERABLES Final Result * US OB follow up transabdominal approach (08/07/2024 9:20 AM EDT) Anatomical Region Laterality Modality Body Ultrasound 08/08/2024 8:25 AM EDT Narrative 08/08/2024 8:25 AM EDT EXAM: US OB FOLLOW UP TRANSABDOMINAL APPROACH HISTORY: Inconsistent size. COMPARISON: Ob ultrasound [...] II, MD, PHD at 08-Aug-2024 08:23:33 AM [facility] Procedure Note Malcom Schultz MD - 08/08/2024 EXAM: US OB FOLLOW UP TRANSABDOMINAL APPROACH HISTORY: Inconsistent size. COMPARISON: Ob ultrasound 06/14/2024. TECHNIQUE: Two-dimensional transabdominal grayscale ultrasound imaging ofthe pelvis was performed. FINDINGS: Gestation: Single Presentation: [...] is 31 weeks 5 days (+/- 16 daysgestation). Estimated Weight: 1830 grams, +/- 275 grams ( 4 lb 1 oz). Weight Percentile for gestational age: 35 % IMPRESSION: 1. Single, live intrauterine gestation 31 weeks, 6 days by LMP. Today'sultrasound measurements correlate with a gestational age of 31 weeks 5days. Estimated weight is 1830 grams, +/- 275 grams ( 4 lb 1 oz)which correlates to 35 %. KIMBERLYN is 10/04/2024. Interpreted by: Electronically signed by MALCOM SCHULTZ II, MD, PHD 08:23:33 AM [facility] us Valerio Sakshi DO IMG OB US PROCEDURES Final Resul t * GLUCOSE 1 HOUR (06/23/2024 8:24 AM EDT) GLUCOSE 1 HOUR 87 <130 mg/dL [facility] 06/23/2024 8:24 AM EDT 06/23/2024 8:26 AM EDT Narrative [facility] - 06/23/2024 8:38 AM EDT us Valerio Sakshi DO LAB BLOOD ORDERABLES Final Resul t [facility] * (ABNORMAL) ALL CBC WITH AUTO DIFF (06/23/2024 8:24 AM EDT) TB WBC 9.0 4.0 - 11.0 10 3/uL [facility] RBC 3.83(L) 4.20 - 5.40 10 6/uL [facility] HGB 12.8 12.0 - 16.0 g/dL TBH TBH HCT 36.6 36.0 - 48.0 % [facility]H [facility] MCV 95.6 81.0 - 99.0 fL TBH TBH MCH 33.4 26.7 - 34.0 pg TBH TBH MCHC 35.0 29.9 - 35.2 g/dL TBH TBH RDW 12.3 11.0 - 15.0 % TBH TBH PLT 182 150 - 450 10 3/uL TBH TBH MPV 9.7 9.5 - 13.5 fL [facility]H NEUTROPHILS PERCENT AUTO 74.7 43.0 - 75.0 % [facility] LYMPHOCYTES PERCENT AUTO 16.8(L) 20.5 - 60.0 % [facility]H MONOCYTES PERCENT AUTO 6.8 1.7 - 12.0 % [facility]H TBH EO % 1.1 0.9 - 7.0 % [facility]H BASOPHILS PERCENT AUTO 0.3 0.2 - 2.0 % [facility] IMMATURE GRANULOCYTES PCT AUTO 0.3 0.0 - 0.5 % [facility] NEUTROPHILS ABSOLUTE AUTO 6.7(H) 1.4 - 6.5 10 3/uL TBH LYMPHOCYTES ABSOLUTE AUTO 1.5 1.2 - 3.8 10 3/uL [facility] MONOCYTES ABSOLUTE AUTO 0.6 0.3 - 0.8 10 3/uL TBH TBH EO # 0.1 0.0 - 0.7 10 3/uL TBH BASOPHILS ABSOLUTE AUTO 0.0 0.0 - 0.1 10 3/uL [facility] IMMATURE GRANULOCYTES ABS AUTO 0.03 0.00 - 0.03 10 3/uL [facility] 06/23/2024 8:24 AM EDT 06/23/2024 8:26 AM EDT Narrative [facility] - 06/23/2024 8:30 AM EDT us Valerio Sakshi DO [facility] Final Result [facility] * US OB limited 1+ fetuses (06/14/2024 8:21 AM EDT) Anatomical Region Laterality Modality Body Ultrasound 06/16/2024 6:48 PM EDT Narrative 06/16/2024 6:48 PM EDT EXAM: US OB LIMITED 1+ FETUSES HISTORY: Follow up anatomy. COMPARISON: Ob ultrasound [...] II, MD, PHD at 16-Jun-2024 06:46:29 PM [facility] Procedure Note Malcom Schultz MD - 06/16/2024 EXAM: US OB LIMITED 1+ FETUSES HISTORY: Follow up anatomy. COMPARISON: Ob ultrasound 05/17/2024. TECHNIQUE: Two-dimensional transabdominal grayscale ultrasound imaging ofthe pelvis was performed. FINDINGS: Gestation: Single Presentation: Cephalic Cardiac Activity: 142 beats per minute Placental Location: Posterior with no sonographic abnormalitiesidentified. Cervical canal: Not well visualized Amniotic Fluid: Appears adequate ANATOMY Four Chamber Heart: Unremarkable LVOT: Unremarkable RVOT: Unremarkable IMPRESSION: 1. Single, live intrauterine gestation 24 weeks, 1 days by LMP. KIMBERLYN is10/03/2024. 2. Unremarkable follow-up anatomy of the four-chamber heart and outflowtracts. Interpreted by: Electronically signed by MALCOM SCHULTZ II, MD, PHD [id number] 06:46:29 PM [facility] us Diana Olivares PA IMG OB US PROCEDURES Final Resul t from Last 3 Months Insurance [facility]
== END 2024-09-04 12:11 | disposition home or self-care (01) ==
LOC: LAB 12:10
PROVIDERS: PCP Internal Medicine; Visit Provider Obstetrics & Gynecology
DX: Z34.93 Encounter for supervision of normal pregnancy, unspecified, third trimester (principal); Z3A.35 35 weeks gestation of pregnancy
CPT/HCPCS: 87081

== ENCOUNTER 2024-09-13 16:48 | Inpatient (IN) | payer OTHER, SELFPAY ==
--- OUTSIDE RECORDS SUMMARY | 2024-09-04 09:40 | XMS_ITS | Encounter Summary ---
Author Organization [facility] Address [address] [facility] [place] [address] Care Team Providers Care Skills Instructor Name Role Phone Unavailable Primary Care Provider Unavailabl e Reason for Visit * Reason Comments Routine Visit Encounter Details Date Type Department Care Team (Late st Contact Info) Description 09/04/2024 9:40 AM EDT Routine [facility] [address] [facility] [place] [address] Valerio Cantor, DO [address] [facility] [place] [address] Third trimester ([facility] 35 weeks gestation of ([facility]); Heartburn during in third trimester ([facility]) Social History Tobacco Use Types Packs/Day Years [...] Sign Reading Time Taken Comments Blood Pressure 112/70 09/04/2024 10:03 AM EDT Pulse - - Temperature - - Respiratory Rate - - Oxygen Saturation - - Inhaled Oxygen Concentration - - Weight 66.2 kg (146 lb) 09/04/2024 10:03 AM EDT Height - - Body Mass Index 25.06 07/10/2024 9:30 AM EDT documented in this encounter Progress Notes * Laura Millan LPN - 09/04/2024 9:40 AM EDT Reason for Appointment: Patient [...] History HISTORY PAST MEDICAL HISTORY SOCIAL HISTORY No past medical history on file. Social History Tobacco Use Smoking status: Never Smokeless tobacco: Never Substance Use Topics Alcohol use: Not on file Drug use: Not on file FAMILY HISTORY No family history on file. SURGICAL HISTORY No past surgical history on file. REVIEW OF SYSTEMS Review of Systems: Review of Systems Constitutional: Negative. HENT: Negative. Eyes: Negative. Respiratory: Negative. Cardiovascular: Negative. Gastrointestinal: Negative. Genitourinary: Negative. Musculoskeletal: Negative. Skin: Negative. Neurological: Negative. All other systems reviewed and are negative. Hematological: Negative. Endocrine: Negative. Allergic/Immunologic: Negative. OBJECTIVE Objective: Physical Exam Constitutional: Appearance: Normal appearance. She is well-developed. Genitourinary: Vulva normal. Cardiovascular: Rate and Rhythm: Normal rate and [...] nursing note reviewed. Exam conducted with a milk truck driver present. Vitals: Estimated body mass index is 25.06 kg/m?? as calculated from the following: Height as of 25: 5' 4 . Weight as of this encounter: 146 lb. BP: 112/70 Patient's last menstrual period was 12/28/2023. ASSESSMENT & PLAN ICD-10-CM 1. Third trimester ([facility]) Z34.93 POCT urinalysis dipstick manually resulted CULTURE, GROUP B STREP WITH SUSCEPTIBLITY CULTURE, GROUP B STREP WITH SUSCEPTIBLITY 2. 35 weeks gestation of ([facility]) Z3A.35 Patient is doing well but has complaints of being tired and having maternal discomfort due to . Patient verbalized frequent movement and was instructed to perform kick counts three times per day. labor precautions were given, LARC consent was signed/declined, and GBS was obtained. Cervical check was performed and patient is 3cm dilated. Orders Placed This Encounter Procedures CULTURE, GROUP B STREP WITH SUSCEPTIBLITY POCT urinalysis dipstick manually resulted Follow Up: Patient is to return to office in 1 week for routine OB appointment Documented by Laura Millan LPN on behalf of: Valerio Cantor DO documented in this encounter Plan of Treatment Upcoming Encounters Date Type Department Care Team (Late st Contact Info) Description 09/18/2024 9:40 AM EDT Routine [facility] [address] [facility] [place] [address] Valerio Cantor DO [address] [place] [address] [place] [address] 09/25/2024 9:40 AM EDT Routine [facility] [address] [place] [address] Valerio Cantor DO [address] [place] [address] [place] [address] 10/02/2024 9:40 AM EDT Routine [facility] [address] [place] [address] Valerio Cantor DO [address] [place] [address] Dr [place] [id number] documented as of this encounter Procedures Procedure Name Priority Date/Time Associated Diagnosis Comments CULTURE, GROUP B STREP WITH SUSCEPTIBLITY Routine 09/04/2024 10:36 AM EDT Third trimester ([facility]) POCT URINALYSIS DIPSTICK Routine 09/04/2024 10:04 AM EDT Third trimester ([facility]) documented in this encounter Results * CULTURE, GROUP B STREP WITH SUSCEPTIBLITY (09/04/2024 10:36 AM EDT) Swab 09/04/2024 10:3 6 AM EDT Valerio Cantor DO LAB BLOOD ORDERABLES Final Resul t EXTERNAL LAB * POCT urinalysis dipstick manually resulted (09/04/2024 10:04 AM EDT) Color, UA Yellow Clarity, UA Clear Glucose, UA Negative Negative - 2000(110) ++++ mg/dL Bilirubin, UA Negative Negative - 4(70) +++ mg/dL Ketones, UA Negative Negative - 160(16) ++++ mg/dL Spec Grav, UA 1.010 1 - 1.03 Blood, UA Negative Negative - 50 Mika/mcL pH, UA 7.0 5 - 9 Protein, UA Negative Negative - 2000(20) ++++ mg/dL Urobilinogen, UA 0.2 0.2 - 12 mg/dL Leukocytes, UA Negative Negative - 500+++ Meena/mcL Nitrite, UA Negative Negative - Positive Urine 09/04/2024 10:0 4 AM EDT Valerio Cantor DO POINT OF CARE TEST ENTER/EDIT OR DERABLES Final Result documented in this encounter Visit Diagnoses Diagnosis Third trimester ([facility]) state, incidental 35 weeks gestation of ([facility]) Heartburn during in third trimester ([facility]) documented in this encounter
--- OUTSIDE RECORDS SUMMARY | 2024-09-11 09:40 | XMS_ITS | Encounter Summary ---
Author Organization [facility] Address [address] [facility] [place] [address] Care Team Providers Care Learning And Development Assistant Name Role Phone Unavailable Primary Care Provider Unavailabl e Reason for Visit * Reason Comments Routine Visit Encounter Details Date Type Department Care Team (Late st Contact Info) Description 09/11/2024 9:40 AM EDT Routine [facility] [address] [facility] [place] [address] Valerio Cantor, DO [address] [facility] [place] [address] Third trimester ([facility]); 36 weeks gestation of ([facility]) Social History Tobacco Use Types Packs/Day [...] nursing note reviewed. Exam conducted with a air pollution analyst present. Vitals: Estimated body mass index is 25.4 kg/m?? as calculated from the following: Height as of 25: 5' 4 . Weight as of this encounter: 148 lb. BP: 110/62 Patient's last menstrual period was 12/28/2023. ASSESSMENT & PLAN ICD-10-CM 1. Third trimester ([facility]) Z34.93 POCT urinalysis dipstick manually resulted 2. 36 weeks gestation of ([facility]) Z3A.36 Return OB: Patient presents today for [...] AM EDT Routine [facility] [address] [place] [phone] Valerio Cantor, DO [address] [place] [address] 09/25/2024 9:40 AM EDT Routine [facility] [address] [facility] [place] [address] Valerio Cantor, DO [address] [place] [address] 10/02/2024 9:40 AM EDT Routine [facility] [address] [facility] [place] [phone] Valerio Cantor, DO [address] [place] [address] documented as of this encounter Procedures Procedure Name Priority Date/Time Associated Diagnosis Comments POCT URINALYSIS DIPSTICK Routine 09/11/2024 9:57 AM EDT Third trimester ([facility]) documented in this encounter Results * POCT [...] this encounter Visit Diagnoses Diagnosis Third trimester ([facility]) state, incidental 36 weeks gestation of ([facility]) documented in this encounter
[2024-09-13] VITALS (13 sets, daily range): BP systolic 110–182; BP diastolic 57–102; PULSE 72–105; TEMP 36.9–37.3
--- OUTSIDE RECORDS SUMMARY | 2024-09-13 16:52 | XMS_ITS | Encounter Summary ---
Author Organization [facility] Address [address] [facility] [place] [address] Care Team Providers Care Emergency Medical Service Coordinator Name Role Phone Unavailable Primary Care Provider Unavailabl e Encounter Details Date Type Department Care Team (Late st Contact Info) Description 12/14/2023 Abstract [facility] B[facility] OB [address] [place] [address] Valerio Cantor DO [address] [place], [facility] Social History Tobacco Use Types Packs/Day Years [...] Routine [facility] OB [address] [place] [address] Valerio Cantor DO [address], [facility] 09/25/2024 9:40 AM EDT Routine [facility] OB [address] [place] [address] Valerio Cantor DO [address], [facility] 10/02/2024 9:40 AM EDT Routine [facility] [address] [facility] [place] [address] Valerio Cantor, [address] [place] [address] documented as of this encounter Visit Diagnoses Not on filedocumented in this encounter
--- OUTSIDE RECORDS SUMMARY | 2024-09-13 16:52 | XMS_ITS | Encounter Summary ---
Author Organization [facility] Address [address] [facility] [facility] [place] [address] Care Team Providers Care Double End Tenon Operator Name Role Phone Unavailable Primary Care Provider Unavailabl e Encounter Details Date Type Department Care Team (Late st Contact Info) Description 11/23/2023 Clinisync Result Encounter [facility] External Department Unsolicited Ramses Cantor, DO [address] [place], [facility]11 Social History Tobacco Use Types Packs/Day [...] Department Care Team (Late Contact Info) Description 09/18/2024 9:40 AM EDT Routine [facility] [address] [place] [address] Ramses Cantor, DO [address] [place], [place] [id number] 09/25/2024 9:40 AM EDT Routine [facility] [address] [place] [address] Ramses Cantor, DO [address] [place] [address] 10/02/2024 9:40 AM EDT Routine [facility] [address] [facility] [place] [phone] Ramses Cantor DO [address] [facility] [place] [address] documented as of this encounter Procedures Procedure Name Priority Date/Time Associated Diagnosis Comments US PELVIS W/ TRANSVAGINAL 11/23/2023 2:23 PM EDT documented in this encounter Results * US PELVIS W/ TRANSVAGINAL (11/23/2023 2:23 PM EDT) Anatomical Region Laterality Modality Other 11/23/2023 2:23 PM EDT Narrative 11/23/2023 2:26 PM EDT The [address] [address] Ultrasound Report Signed Patient: CARMELINA DUKE MR#: [id number] : 1995 Acct:[id number] Age/Sex: 28 / F ADM Date: 11/23/23 Loc: US Attending Dr: Ramses Cantor D.O. Ordering Physician: Ramses Cantor D.O. Date of Service: 11/23/23 Procedure(s): US pelvis w/ transvaginal Accession Number(s): [id number] cc: Ramses Cantor D.O.; Physician,Non-Staff M.DKacey The [address] [address] Patient Name: CARMELINA DUKE MRN: [id number] date: 1995 Sex: F Assigned Patient Location: US Current Patient Location: US Accession/Order Number: [id number] Exam Date: 11/23/2023 12:58 Report Date: 11/23/2023 [...] Signed By: 11/23/23 1426 DD/ 1423 TD/TT: Die Maker Apprentice: Procedure Note Radiology, Radiologist, MD - 11/23/2023 [place] [address] Ultrasound Report Signed Patient: CARMELINA DUKER#: [id number] : 1995Acct:[id number] Age/Sex: 28 / FADM Date: 11/23/23 Loc: US Attending Dr: Ramses Cantor D.O. Ordering Physician: Ramses Cantor D.O. Date of Service: 11/23/23 Procedure(s): US pelvis w/ transvaginal Accession Number(s): [id number] cc: Ramses Cantor D.O.; Physician,Non-Staff Delma The [address] [address] Patient Name: CARMELINA DUKE MRN: [facility]:[id number] date: 1995 Sex: F Assigned Patient Location: Current Patient Location: US Accession/Order Number: [id number] Exam Date: 11/23/2023 12:58 Report Date: 11/23/2023 [...] M.D. Signed By:11/23/23 1426 DD/ 1423 TD/TT: Die Maker Apprentice: us Ramses Cantor DO [facility] Final Result documented in this encounter Visit Diagnoses Not on filedocumented in this encounter
--- OUTSIDE RECORDS SUMMARY | 2024-09-13 16:52 | XMS_ITS | Encounter Summary ---
Author Organization [facility] Healthcare Address [address] [email or web address] [address] Care Team Providers Care Laboratory Analyst Name Role Phone Unavailable Primary Care Provider Unavailabl e Encounter Details Date Type Department Care Team (Late st Contact Info) Description 11/16/2023 Abstract [facility] B[facility] OB [address] [place] [address] Valerio Cantor DO [address] [place], [facility]11 Social History Tobacco Use Types Packs/Day Years [...] Routine [facility] B[facility] OB [address] [place] [address] Valerio Cantor DO [address] [place], [facility] 09/25/2024 9:40 AM EDT Routine [facility] OB [address] [place] [address] Valerio Cantor DO [address], [facility] 10/02/2024 9:40 AM EDT Routine [facility] [address] [facility] [place] [address] Valerio Cantor, [address] [place] [address] documented as of this encounter Visit Diagnoses Not on filedocumented in this encounter
--- OUTSIDE RECORDS SUMMARY | 2024-09-13 16:52 | XMS_ITS ---
Author Organization [facility] ction (ClinicalSummary Clone) Address Unknown Care Team Providers Care Study Hall Supervisor Name Role Phone Unavailable Primary Care Physician Unavailab le Results * [UNITY] ANEUPLOIDY NIPT Performed by: AA Party Component Value Range Date Fraction 14.1% 03/17/2024 04 :43 am UTC Sex Chromosome Aneuploidy NOT DETECTED 04:43 am UTC Monosomy X LOW RISK <1 in 10,000 2024 04:43 am UTC Trisomy 13 LOW RISK <1 in 10,000 2024 04:43 am UTC Trisomy 18 LOW RISK <1 in 10,000 2024 04:43 am UTC Trisomy 21 LOW RISK <1 in 10,000 2024 04:43 am UTC Sex FEMALE 03/17/2024 04:4 3 am UTC Gestation RODRIGUES 03/17/19 25 04:43 am UT For detailed report, see PDF See PDF 03/17/2024 04:43 am UTC 03/17/2024 04:4 3 am UT Social History Observation Value Start Date End Date
--- OUTSIDE RECORDS SUMMARY | 2024-09-13 16:52 | XMS_ITS | Encounter Summary ---
Author Organization [facility] Address [address] [facility] [place] [address] Care Team Providers Care Yarn Mercerizer Operator Helper Name Role Phone Unavailable Primary Care Provider Unavailabl e Encounter Details Date Type Department Care Team (Late Contact Info) Description 09/11/2024 Bamboo flowsheet [facility] OB [address] [place] [address] Valerio Cantor DO [address] [place], [facility]11 Social History Tobacco Use Types Packs/Day [...] [place] [address] [place] [address] 09/25/2024 9:40 AM EDT Routine [facility] OB [address] [place] [address] Valerio Cantor, [address] [place] [address] 10/02/2024 9:40 AM EDT Routine [facility] OB [address] [place] [address] [place] [address] Valerio Cantor, [address] [place], [place] [id number] documented as of this encounter Visit Diagnoses Not on filedocumented in this encounter
--- OUTSIDE RECORDS SUMMARY | 2024-09-13 16:52 | XMS_ITS | Encounter Summary ---
Author Organization [facility] Healthcare Address [address] [facility] [address] Care Team Providers Care Seismograph Supervisor Name Role Phone Unavailable Primary Care Provider Unavailabl e Encounter Details Date Type Department Care Team (Late Contact Info) Description 04/19/2024 Abstract [facility] BCP OB [address] [place] [address] Valerio Cantor DO [address] [place], [facility]11 Social History Tobacco Use Types Packs/Day Years [...] Routine [facility] BCP OB [address] [place] [address] Valerio Cantor DO [address] [place], [place] [id number] 09/25/2024 9:40 AM EDT Routine [facility] OB [address] [place] [address] Valerio Cantor DO [address] [place] [address] 10/02/2024 9:40 AM EDT Routine [facility] [address] [facility] [place] [address] Valerio Cantor, [address] [place], [place] [address] documented as of this encounter Visit Diagnoses Not on filedocumented in this encounter
--- OUTSIDE RECORDS SUMMARY | 2024-09-13 16:52 | XMS_ITS | Encounter Summary ---
Author Organization [facility] Healthcare Address [address] [facility] [place] [address] Care Team Providers Care Eastern Philosophy Professor Name Role Phone Unavailable Primary Care Provider Unavailabl e Encounter Details Date Type Department Care Team (Late st Contact Info) Description 11/09/2023 Abstract [facility] B[facility] OB [address] [place] [address] Valerio Cantor DO [address] [place], [facility]11 Social History Tobacco [...] [address] Valerio Cantor DO [address] [place], [facility]11 09/25/2024 9:40 AM EDT Routine [facility] BCP OB [address] [place] [address] Valerio Cantor DO [address] [place], [facility]11 10/02/2024 9:40 AM EDT Routine [facility] OB [address] [facility] [place] [address] Valerio Cantor, [address] [place] [address] documented as of this encounter Visit Diagnoses Not on filedocumented in this encounter
--- OUTSIDE RECORDS SUMMARY | 2024-09-13 16:52 | XMS_ITS | Encounter Summary ---
Author Organization [facility] Healthcare Address [address] [facility] [place] [address] Care Team Providers Care Fretted Instruments Inspector Name Role Phone Unavailable Primary Care Provider Unavailabl e Encounter Details Date Type Department Care Team (Late st Contact Info) Description 11/24/2023 Abstract [facility] BCP OB [address] [place] [address] Valerio Cantor DO [address], [facility]11 Social History Tobacco Use Types [...] Routine [facility] BCP OB [address] [place] [address] Valerio Cantor DO [address], [facility]11 09/25/2024 9:40 AM EDT Routine [facility] BCP OB [address] [place] [address] Valerio Cantor DO [address], [facility]11 10/02/2024 9:40 AM EDT Routine [facility] OB [address] [facility] [place] [address] Valerio Cantor, [address] [place] [address] documented as of this encounter Visit Diagnoses Not on filedocumented in this encounter
--- OUTSIDE RECORDS SUMMARY | 2024-09-13 16:53 | XMS_ITS | Encounter Summary ---
Author Organization [facility] Healthcare Address [address] [facility] [place] [address] Care Team Providers Care Director Of Technology Name Role Phone Unavailable Primary Care Provider Unavailabl e Encounter Details Date Type Department Care Team (Late Contact Info) Description 03/21/2024 Abstract [facility] BCP OB [address] [place] [address] Valerio Cantor DO [address] [place], [facility]11 Social History Tobacco Use Types Packs/Day [...] Routine [facility] BCP OB [address] [place] [address] Valerio Cantor DO [address] [place], [place] [id number] 09/25/2024 9:40 AM EDT Routine [facility] B[facility] OB [address] [place] [address] Valerio Cantor DO [address] [place] [address] 10/02/2024 9:40 AM EDT Routine [facility] OB [address] [facility] [address] Valerio Cantor, [address] [place], [place] [id number] documented as of this encounter Visit Diagnoses Not on filedocumented in this encounter
--- OUTSIDE RECORDS SUMMARY | 2024-09-13 16:53 | XMS_ITS | Encounter Summary ---
Author Organization [facility] Healthcare Address [address] [facility] [address] Care Team Providers Care Imitation Marble Mechanic Name Role Phone Unavailable Primary Care Provider Unavailabl e Encounter Details Date Type Department Care Team (Late st Contact Info) Description 01/20/2024 Abstract [facility] BCP OB [address] [place] [address] Valerio Cantor DO [address], [facility]11 Social History Tobacco Use Types Packs/Day [...] Routine [facility] BCP OB [address] [place] [address] Valerio Cantor DO [address] [place], [facility]11 09/25/2024 9:40 AM EDT Routine [facility] BCP OB [address] [place] [address] Valerio Cantor DO [address] [place], [facility]11 10/02/2024 9:40 AM EDT Routine [facility] BCP OB [address] [facility] [place] [address] Valerio Cantor, [address] [place] [address] documented as of this encounter Visit Diagnoses Not on filedocumented in this encounter
--- OUTSIDE RECORDS SUMMARY | 2024-09-13 16:53 | XMS_ITS | Encounter Summary ---
Author Organization [facility] Address [address] [facility] [place] [address] Care Team Providers Care Advertising Job Titles Name Role Phone Unavailable Primary Care Provider Unavailabl e Encounter Details Date Type Department Care Team (Late Contact Info) Description 09/04/2024 Bamboo flowsheet [facility] BCP OB [address] [place] [address] Valerio Cantor DO [address] [place], [facility]11 Social History Tobacco Use Types Packs/Day Years [...] Routine [facility] BCP OB [address] [place] [address] Valerio Cantor DO [address] [place] [address] [place] [address] 09/25/2024 9:40 AM EDT Routine [facility] BCP OB [address] [place] [address] Valerio Cantor, [address] [place] [address] 10/02/2024 9:40 AM EDT Routine [facility] BCP OB [address] [place] [address] [place] [address] Valerio Cantor, [address] [place], [place] [address] documented as of this encounter Visit Diagnoses Not on filedocumented in this encounter
--- OUTSIDE RECORDS SUMMARY | 2024-09-13 16:53 | XMS_ITS | Clinical Summary ---
Author Organization [facility] Address [address] [place] [address] Care Team Providers Care Rake Operator Name Role Phone Unavailable Primary Care [...] DR Paige ons:Heartburn during in third trimester ([facility]) Take 1 capsule (20 mg) by mouth in the morning. Take before meals. Do not crush or chew. 30 capsule 11 5 09/05/19 26 Active Active Problems Estimated Date of Delivery Comme nts Yes 10/03/2024 Based on last me nstrual period of 12/28/2023 No known active problems Encounters Date Type Department Care Team Description 09/11/2024 9:40 AM EDT Routine [facility] [address] [place] [address] Valerio Cantor, DO Third trimester ([facility]); 36 weeks gestation of ([facility]) 09/11/2024 Bamboo flowsheet [facility] [address] [place] [address] Valerio Cantor, 09/04/2024 9:40 AM EDT Routine [facility] [address] [place] [address] Valerio Cantor, Third trimester ([facility]); 35 weeks gestation of ([facility]); Heartburn during in third trimester ([facility]) 09/04/2024 Bamboo flowsheet [facility] [address] [place] [address] Valerio Cantor, 08/21/2024 9:40 AM EDT Routine [facility] [address] [place] [address] Valerio Cantor, Third trimester ([facility]); 34 weeks gestation of ([facility]) 08/21/2024 Bamboo flowsheet [facility] [address] [place] [address] Valerio Cantor, 08/20/2024 Travel 08/07/2024 9:30 AM EDT Routine [facility] [address] [place] [address] Diana Olivares PA Third trimester ([facility]); 31 weeks gestation of ([facility]) 08/07/2024 9:00 AM EDT Ancillary Procedure [facility] [address] [place] [address] size inconsistent with dates ([facility]) 08/06/2024 Travel 07/25/2024 1:10 PM EDT Routine [facility] [address] [place] [address] Valerio Cantor, 30 weeks gestation of ([facility]); Third trimester ([facility]) 07/25/2024 Bamboo flowsheet [facility] [address] [place] [address] Valerio Cantor, 07/24/2024 Travel 07/10/2024 9:10 AM EDT Routine [facility] [address] [place] [address] Valerio Cantor, Second trimester ([facility]); 27 weeks gestation of ([facility]); size inconsistent with dates ([facility]) 07/10/2024 Bamboo flowsheet [facility] [address] [place] [address] Valerio Cantor DO 07/09/2024 Travel 06/23/2024 Clinisync Result Encounter [facility] External Department Unsolicited Valerio Cantor DO 06/14/2024 8:30 AM EDT Routine [facility] [address] [place] [address] Valerio Cantor, Second trimester ([facility]); 24 weeks gestation of ([facility]) 06/14/2024 8:00 AM EDT Ancillary Procedure [facility] [address] [place] [address] Encounter for follow-up ultrasound of anatomy ([facility]) from Last 3 Months Social History Tobacco [...] (148 lb) 09/11/2024 9:56 AM EDT Height 162.6 cm (5' 4 ) 07/10/2024 9:30 AM EDT Body Mass Index 25.4 07/10/2024 9:30 AM EDT Plan of Treatment Upcoming Encounters Date Type Department Care Team (Late st Contact Info) Description 09/18/2024 9:40 AM EDT Routine [facility] [address] [facility] [place] [address] Valerio Cantor, DO [address] [place], [place] [address] [place] [address] 09/25/2024 9:40 AM EDT Routine [facility] [address] [place] [address] Valerio Cantor, DO [facility] [place] [address] 10/02/2024 9:40 AM EDT Routine [facility] [address] [facility] [place] [phone] Valerio Cantor, DO [address] [place], [place] [address] [place] [address] Procedures Procedure Name Priority Date/Time Associated Diagnosis Comments POCT URINALYSIS DIPSTICK Routine 09/11/2024 9:57 AM EDT Third trimester ([facility]) CULTURE, GROUP B STREP WITH SUSCEPTIBLITY Routine 09/04/2024 10:36 AM EDT Third trimester ([facility]) POCT URINALYSIS DIPSTICK Routine 09/04/2024 10:04 AM EDT Third trimester ([facility]) POCT URINALYSIS DIPSTICK Routine 08/21/2024 10:24 AM EDT Third trimester ([facility]) 34 weeks gestation of ([facility]) POCT URINALYSIS DIPSTICK Routine 08/07/2024 10:05 AM EDT Third trimester ([facility]) US OB FOLLOW UP TRANSABDOMINAL APPROACH Routine 08/07/2024 9:20 AM EDT size inconsistent with dates ([facility]) POCT URINALYSIS DIPSTICK Routine 07/25/2024 1:14 PM EDT 30 weeks gestation of ([facility]) Third trimester ([facility]) POCT URINALYSIS DIPSTICK Routine 07/10/2024 9:30 AM EDT Second trimester ([facility]) GLUCOSE 1 HOUR Routine 06/23/2024 8:24 AM EDT ALL CBC WITH AUTO DIFF Routine 8:24 AM EDT POCT URINALYSIS DIPSTICK Routine 06/14/2024 8:39 AM EDT Second trimester ([facility]) US OB LIMITED 1+ FETUSES Routine 06/14/2024 8:21 AM EDT Encounter for follow-up ultrasound of anatomy ([facility]) from Last 3 Months Results * POCT urinalysis dipstick manually resulted (09/11/2024 9:57 AM EDT) Only the most recent of7 resultswithin the time period is included. Color, UA Yellow Clarity, UA Clear Glucose, UA Negative Negative - 1999(110) ++++ mg/dL Bilirubin, UA Negative Negative - 4(70) +++ mg/dL Ketones, UA Negative Negative - 160(16) ++++ mg/dL Spec Grav, UA 1.020 1 - 1.03 Blood, UA Negative Negative - 50 Mika/mcL pH, UA 6.5 5 - 9 Protein, UA Negative Negative - 1999(20) ++++ mg/dL Urobilinogen, UA 0.2 0.2 - 12 mg/dL Leukocytes, UA Negative Negative - 500+++ Meena/mcL Nitrite, UA Negative Negative - Positive Urine 09/11/2024 9:57 AM EDT us Valerio Sakshi DO POINT OF CARE TEST ENTER/EDIT OR DERABLES Final Result * CULTURE, GROUP B STREP WITH SUSCEPTIBLITY (09/04/2024 10:36 AM EDT) Swab 09/04/2024 10:3 6 AM EDT us Valerio Sakshi DO LAB BLOOD ORDERABLES Final Resul t EXTERNAL LAB * US OB follow up transabdominal approach [...] II, MD, PHD at 08-Aug-2024 08:23:33 AM [facility] Procedure Note Malcom Schultz MD - [...] MALCOM SCHULTZ II, MD, PHD 08:23:33 AM [facility] us Valerio Sakshi DO IMG OB US PROCEDURES Final Resul t * GLUCOSE 1 HOUR (06/23/2024 8:24 AM EDT) [facility] GLUCOSE 1 HOUR 87 <130 mg/dL [facility] 06/23/2024 8:24 AM EDT 06/23/2024 8:26 AM EDT Narrative [facility] - 06/23/2024 8:38 AM EDT us Valerio Sakshi DO LAB BLOOD ORDERABLES Final Resul t [facility] * (ABNORMAL) ALL CBC WITH AUTO DIFF (06/23/2024 8:24 AM EDT) [facility] WBC 9.0 4.0 - 11.0 10 3/uL [...] 8:26 AM EDT Narrative [facility] - 06/23/2024 8:30 AM EDT us Valerio Sakshi DO [facility] Final Result [facility] * US OB limited 1+ fetuses (06/14/2024 [...] II, MD, PHD at 16-Jun-2024 06:46:29 PM [facility] Procedure Note Malcom Schultz MD - [...] signed by MALCOM SCHULTZ II, MD, PHD [id number] 06:46:29 PM [facility] us Diana VIRGEN IMG OB US PROCEDURES Final Resul t from Last 3 Months Insurance [facility]
--- OUTSIDE RECORDS SUMMARY | 2024-09-13 16:53 | XMS_ITS | Encounter Summary ---
Author Organization [facility] Healthcare Address [address] [place] [address] Care Team Providers Care Railroad Worker Name Role Phone Unavailable Primary Care Provider Unavailabl e Encounter Details Date Type Department Care Team (Late Contact Info) Description 03/19/2024 Abstract [facility] [address] [place] [address] Valerio Cantor DO [address] [place], [facility] Social History Tobacco Use Types Packs/Day Years [...] Routine [facility] [address] [place] [address] Valerio Cantor DO [address] [place], [place] [id number] 09/25/2024 9:40 AM EDT Routine [facility] [address] [place] [address] Valerio Cantor DO [address] [place] [address] 10/02/2024 9:40 AM EDT Routine [facility] [address] [facility] [place] [phone] Valerio Cantor, [address] [place], [place] [id number] documented as of this encounter Visit Diagnoses Not on filedocumented in this encounter
[2024-09-13 17:42] LABS: Glucose Urine UA NEGATIVE (NEGATIVE)
[2024-09-13 17:51] LABS: Cast Seen? NONE SEEN #/LPF (NONE SEEN); Crystals Seen? None Seen #/HPF (None Seen); Urine Culture Indicated YES-LC
[2024-09-13 18:47] LABS: Cannabinoid Screen Urine NEGATIVE (NEGATIVE); Methamphetamines Screen Urine NEGATIVE (NEGATIVE); Tricyclic Antidepressant Urine NEGATIVE (NEGATIVE)
[2024-09-13 19:09] LABS: Hematocrit 36.0 % (36.0-48.0); Hemoglobin 12.2 g/dL (12.0-16.0); Mean Corpuscular HGB Conc 33.9 g/dL (29.9-35.2); Mean Corpuscular Hemoglobin 29.2 pg (26.7-34.0); Mean Corpuscular Volume 86.1 fL (81.0-99.0); Platelet Count 203 10^3/uL (150-450); Red Blood Count 4.18 10^6/uL (4.20-5.40); White Blood Count 12.0 10^3/uL (4.0-11.0)
--- NOTE | 2024-09-13 19:22 | W.PC.ACHO ---
Registration Status: ADM IN Primary Language: Preferred Language: Report given to Krystina Gonzalez RN. Care relinquished. Active Medications Generic Name Dose Route Start Last Admin Trade Name Freq PRN Reason Stop Dose Admin Carboprost Tromethamine 250 mcg 09/13/24 18:24 Carboprost Tromethamine 250 Mcg/Ml 1 Ml Vial IM 09/15/24 18:24 Q15M PRN Bleeding Diphenhydramine HCl 25 mg 09/13/24 18:29 Diphenhydramine Hcl 50 Mg/Ml Vial IV 09/14/24 18:30 Q6H PRN Itching Ephedrine Sulfate 5 mg 09/13/24 18:29 Ephedrine Sulfate 50 Mg/Ml Vial IV 09/14/24 18:30 Q5M PRN Blood Pressure - Low Tranexamic Acid 1,000 mg/ 110 mls @ 440 mls/hr 09/13/24 18:24 Sodium Chloride IV 09/15/24 18:24 ONCE PRN Uterine Bleeding Sodium Chloride 1,000 mls @ 125 mls/hr 09/13/24 18:30 Sodium Chloride 0.9% 1,000 Ml IV .Q8H BALDEV Oxytocin/Sodium Chloride 20 units in 1,000 mls @ 125 mls/hr 09/13/24 18:24 Pitocin 20 Unit/1,000 Ml-Ns IV Q8H PRN POST DELIVERY Ropivacaine/Sodium Chloride 400 mg in 200 mls @ 6 mls/hr 09/13/24 18:30 Naropin 0.2% 400 Mg/200 Ml Bag EPIDURAL Q24H BALDEV Sodium Chloride 1,000 mls @ 1,000 mls/hr 09/13/24 18:29 Sodium Chloride 0.9% 1,000 Ml IV 09/13/24 19:28 .Q1H ONE Lidocaine 5 ml 09/13/24 18:24 Lidocaine Viscous 2% 15 Ml Solution TOPICAL 09/15/24 18:26 ONCE PRN Pain Lidocaine 1 ml 09/13/24 18:24 Lidocaine Hcl 1% 200 Mg/20 Ml Mdv INJ 09/15/24 18:26 ONCE PRN Pain Methylergonovine Maleate 0.2 mg 09/13/24 18:24 Methylergonovine Maleate 0.2 Mg/Ml Ampule IM 09/15/24 18:24 ONCE PRN Uterine Contractility/Contract Methylergonovine Maleate 0.2 mg 09/13/24 18:24 Methylergonovine Maleate 0.2 Mg Tablet PO 09/15/24 18:24 Q4H PRN Uterine Contractility/Contract Misoprostol 600 mcg 09/13/24 18:24 Misoprostol 100 Mcg Tablet PO 09/15/24 18:24 ONCE PRN Uterine Bleeding Misoprostol 800 mcg 09/13/24 18:24 Misoprostol 100 Mcg Tablet SL 09/15/24 18:24 ONCE PRN Uterine Bleeding Misoprostol 1,000 mcg 09/13/24 18:24 Misoprostol 100 Mcg Tablet DC 09/15/24 18:24 ONCE PRN Uterine Bleeding Nalbuphine HCl 10 mg 09/13/24 18:24 Nalbuphine Hcl 10 Mg/Ml Ampule IV Q3H PRN Pain Scale 4-6 Naloxone HCl 0.4 mg 09/13/24 18:29 Naloxone Hcl 0.4 Mg/Ml Vial IV 09/14/24 18:30 ONCE PRN Respiratory Distress Ondansetron HCl 4 mg 09/13/24 18:24 Ondansetron Pf 4 Mg/2 Ml Vial IV Q6H PRN Nausea And Vomiting Ondansetron HCl 4 mg 09/13/24 18:24 Ondansetron 4 Mg Rapdis Tablet SL Q6H PRN Nausea And Vomiting Oxytocin 10 unit 09/13/24 18:24 Oxytocin 10 Unit/Ml Vial IM 09/15/24 18:24 ONCE PRN Bleeding Ropivacaine/Sodium Chloride 40 mg 09/13/24 18:29 Ropivacaine Hcl 0.2% Pf 40 Mg/20 Ml Vial EPIDURAL 09/13/24 18:30 ONCE ONE Diet Category Date Time Status Regular Consistency Diet Diet 09/13/24 18:25 Active Consults Category Date Time Status Consult to Anesthesiology Routine Cons 09/13/24 Ordered IV Insertion/Site Date of IV Line Insertion [ 09/13/24 Short PIV (<1.75 in) 20g left Forearm] IV Insertion Time [Short PIV ( 18:45 <1.75 in) 20g left Forearm]
[2024-09-13] MEDS: 0.9 % SODIUM CHLORIDE 1,000 ML 125 ML IV (20:10)
[2024-09-13] MEDS: OXYTOCIN/0.9 % SODIUM CHLORIDE 10 UNITS/500 ML PLAST..BAG 6 UNIT IV (20:16)
[2024-09-13] MEDS: AMPICILLIN SODIUM 2,000 MG in 0.9 % SODIUM CHLORIDE 100 ML 200 MG IV (20:35)
[2024-09-14] VITALS (29 sets, daily range): BP systolic 92–128; BP diastolic 50–74; PULSE 60–105; TEMP 36.7–37.1
[2024-09-14] MEDS: AMPICILLIN SODIUM 1,000 MG in 0.9 % SODIUM CHLORIDE 50 ML 100 MG IV ×2 (00:03→04:03)
[2024-09-14] MEDS: ACETAMINOPHEN 500 MG TABLET 1000 MG PO (05:49)
[2024-09-14] MEDS: 0.9 % SODIUM CHLORIDE 1,000 ML 125 ML IV (06:31)
[2024-09-14] MEDS: OXYTOCIN/0.9 % SODIUM CHLORIDE 10 UNITS/500 ML PLAST..BAG 60 UNIT IV (08:13)
[2024-09-14] MEDS: ONDANSETRON 4 MG RAPDIS TABLET SL (10:32)
[2024-09-14] MEDS: OXYTOCIN/0.9 % SODIUM CHLORIDE 20 UNITS/1,000 ML PLAST..BAG 999 UNIT IV (11:48)
--- NOTE | 2024-09-14 12:45 | PM.OBPRCVD ---
Procedure Intrapartal events: None Induction method: none Delivery augmentation: rupture of membranes and pitocin Delivery monitor: external FHT and external uterine Route of delivery: Episiotomy Description: none L&D Laceration Description: none Estimated blood loss (mL): 250 Anesthesia type: nubain Disposition: floor Infant Delivery date: 09/14/24 Gender: female presentation: vertex Placental delivery description: Spontaneous cord description: 3 Vessels
[2024-09-14] MEDS: KETOROLAC TROMETHAMINE 30 MG/ML VIAL IVP (13:06)
[2024-09-14] MEDS: GLYCERIN/WITCH HAZEL PADS 1 PAD TOPICAL (20:03)
[2024-09-14] MEDS: IBUPROFEN 600 MG TABLET PO (20:04)
[2024-09-14] MEDS: BENZOCAINE/MENTHOL 85 GRAM SPRAY BOTTLE 1 APPLIC TOPICAL (20:04)
[2024-09-15] MEDS: IBUPROFEN 600 MG TABLET PO ×2 (04:31→13:21)
[2024-09-15 06:24] LABS: Hematocrit 29.4 % (36.0-48.0); Hemoglobin 9.8 g/dL (12.0-16.0); Immature Granulocytes Abs Auto 0.06 10^3/uL (0.00-0.03); Immature Granulocytes Pct Auto 0.6 % (0.0-0.5); Lymphocytes Absolute Auto 1.8 10^3/uL (1.2-3.8); Mean Corpuscular HGB Conc 33.3 g/dL (29.9-35.2); Mean Corpuscular Hemoglobin 29.3 pg (26.7-34.0); Mean Corpuscular Volume 88.0 fL (81.0-99.0); Platelet Count 157 10^3/uL (150-450); Red Blood Count 3.34 10^6/uL (4.20-5.40); White Blood Count 10.4 10^3/uL (4.0-11.0)
[2024-09-15 08:36] VITALS: BP 119/72; PULSE 78
[2024-09-15] MEDS: DOCUSATE SODIUM 100 MG CAPSULE PO (08:36)
--- NOTE | 2024-09-15 08:38 | P.OBPN_ITS ---
OB - PN: Subj Subjective Patient comments: no complaints and pain well controlled [place] status: doing well Narrative: requesting discharge if baby ok to go home Exam Constitutional Vital Signs, click to edit/add: Last Vital Signs Temp 98.7 F 09/14/24 22:33 Pulse 78 09/15/24 08:36 Resp 15 09/14/24 22:33 BP 119/72 09/15/24 08:36 O2 Del Method Room Air 09/14/24 22:33 Documenting provider has reviewed patient's vital signs: yes Common normals: no apparent distress GI Palpation: soft Other: Fundus - firm below umbilicus Other: perineum - minimal bleeding Neuro Common normals: oriented x3 Psych Common normals: mental status grossly normal Results Labs Labs: Short CBC 09/15/24 Range/Units 06:20 WBC 10.4 (4.0-11.0) 10^3/uL Hgb 9.8 L (12.0-16.0) g/dL Hct 29.4 L (36.0-48.0) % Plt Count 157 (150-450) 10^3/uL OB - PN: A/P Assessment and Plan (1) Term delivered: Plan normal care Plan - Vaginal Delivery day: 1 Plan: discharge home and follow up 6 weeks Time Spent with Patient Time: Total time spent is greater than 50% in coordination of care (as documented) at patient's floor/unit and/or counseling patient: Total time spent with greater than 50% in coordination of care (as documented) at patient's floor/unit and/or counseling patient: less than 15 minutes
[2024-09-15 09:05] VITALS: TEMP 36.9
[2024-09-15 15:30] VITALS: TEMP 36.3
[2024-09-15 15:33] VITALS: BP 120/66; PULSE 59
== END 2024-09-15 18:00 | disposition home or self-care (01) | DRG 807 ==
PROVIDERS: Admitting Provider Obstetrics & Gynecology; PCP Internal Medicine; Visit Provider Obstetrics & Gynecology
DX: O80 Encounter for full-term uncomplicated delivery (principal); Z37.0 Single live birth; Z3A.37 37 weeks gestation of pregnancy
CPT/HCPCS: 36415; 59025; 59050; 59410; 80307; 81001; 84112; 85025; 85027; 86850; 86900; 86901; 87086; J0290; J1885; J2300; Q0162

== ENCOUNTER 2024-09-17 11:08 | Outpatient (OUT) | payer OTHER, SELFPAY ==
--- NOTE | 2024-09-17 14:19 | PC.NURSE ---
Carmelina, and 3 day old daughter Chase arrive for follow up visit. Mom states I think we are doing well up frequently at night and nursing 10 min per side, second breast sleepy and slow. Reports 6 wets and 1 stool at midnight and green stool diaper removed during assessment. Carmelina with VSS and assessment WNL. Denies concerns or complaints with healing for herself. States milk is starting to come in, breast filling. Baby Chase with VSS and assessment WNL. Weight is 9% down and discussed feeding plan. to return to breast every 2-2.5 hours and nurse 12/07. Mom to pump to give up to 15ml as top off for feed. Infant was born at 36+ weeks and tires easily after 1st breast. Family will return 09/20/2024 for repeat weight check. Home after feeding completed. No concerns voiced.
[2024-09-17 14:20] VITALS: BP 119/75; PULSE 86; TEMP 36.7; O2SAT 99
== END 2024-09-17 14:23 | disposition home or self-care (01) ==
LOC: FBCO 11:14
PROVIDERS: PCP Internal Medicine; Visit Provider Obstetrics & Gynecology
DX: Z39.1 Encounter for care and examination of lactating mother (principal)

== ENCOUNTER 2024-09-20 08:50 | Outpatient (OUT) | payer OTHER, SELFPAY ==
--- OUTSIDE RECORDS SUMMARY | 2024-09-11 09:40 | XMS_ITS | Encounter Summary ---
Author Organization [facility] Address [address] [facility] [place] [address] Care Team Providers Care House Wirer Helper Name Role Phone Unavailable Primary Care Provider Unavailabl e Reason for Visit * Reason Comments Routine Visit Encounter Details Date Type Department Care Team (Late st Contact Info) Description 09/11/2024 9:40 AM EDT Routine [facility] [address] [facility] [place] [address] Valerio Cantor, DO [address] [facility] [place] [address] Third trimester ([facility]); 36 weeks gestation of ([facility]) Social History Tobacco Use Types Packs/Day [...] Sign Reading Time Taken Comments Blood Pressure 110/62 09/11/2024 9:56 AM EDT Pulse - - Temperature - - Respiratory Rate - - Oxygen Saturation - - Inhaled Oxygen Concentration - - Weight 67.1 kg (148 lb) 09/11/2024 9:56 AM EDT Height - - Body Mass Index 25.4 07/10/2024 9:30 AM EDT documented in this encounter Progress Notes * Laura Millan LPN - 09/11/2024 9:40 AM EDT Reason for Appointment: Patient ID: Carmelina Duke is a 29 y.o. female who presents for Routine Visit Patient presents today for Return OB appointment. MEDICATIONS Current Outpatient Medications Medication Instructions MAGnesium-Oxide 400 mg, Daily omeprazole (PRILOSEC) 20 mg, Oral, Daily before breakfast, Do not crush or chew. Vit-Fe Fumarate-FA (PNV FOLIC ACID + IRON [...] nursing note reviewed. Exam conducted with a [employer] operations consultant present. Vitals: Estimated body mass index is 25.4 kg/m?? as calculated from the following: Height as of 07/10/24: 5' 4 . Weight as of this encounter: 148 lb. BP: 110/62 Patient's last menstrual period was 12/28/2023. ASSESSMENT & PLAN ICD-10-CM 1. Third trimester ([facility]) Z34.93 POCT urinalysis dipstick manually resulted 2. 36 weeks gestation of ([facility]) Z3A.36 Return OB: Patient presents today for a routine obstetrics appointment. Patient is currently 36w6d . Patient states she is doing well but has complaints of being tired due to current . Patient has verbalizes frequent movement. labor precautions was discussed/given and patient was instructed to perform kick counts three times a day. Orders Placed This Encounter Procedures POCT urinalysis dipstick manually resulted Follow Up: Patient is to return to office in 1 week for routine OB appointment. Documented by Laura Millan LPN on behalf of: Valerio Cantor DO documented in this encounter Plan of Treatment Upcoming Encounters Date Type Department Care Team (Late st Contact Info) Description 10/31/2024 1:50 PM EDT Visit [facility] [address] [facility] [address] Valerio Cantor DO [address] [place], [place] [id number] documented as of this encounter Procedures Procedure Name Priority Date/Time Associated Diagnosis Comments POCT URINALYSIS DIPSTICK Routine 09/11/2024 9:57 AM EDT Third trimester ([facility]) documented in this encounter Results * POCT urinalysis dipstick manually resulted (09/11/2024 9:57 AM EDT) Color, UA Yellow Clarity, UA Clear Glucose, UA Negative Negative - 2000(110) ++++ mg/dL Bilirubin, UA Negative Negative - 4(70) +++ mg/dL Ketones, UA Negative Negative - 160(16) ++++ mg/dL Spec Grav, UA 1.020 1 - 1.03 Blood, UA Negative Negative - 50 Mika/mcL pH, UA 6.5 5 - 9 Protein, UA Negative Negative - 2000(20) ++++ mg/dL Urobilinogen, UA 0.2 0.2 - 12 mg/dL Leukocytes, UA Negative Negative - 500+++ Meena/mcL Nitrite, UA Negative Negative - Positive Urine 09/11/2024 9:57 AM EDT Valerio Cantor DO POINT OF CARE TEST ENTER/EDIT OR DERABLES Final Result documented in this encounter Visit Diagnoses Diagnosis Third trimester ([facility]) state, incidental 36 weeks gestation of ([facility]) documented in this encounter
--- OUTSIDE RECORDS SUMMARY | 2024-09-20 08:53 | XMS_ITS | Clinical Summary ---
Author Organization [facility] Address [address] [place] [address] Care Team Providers Care Art Gallery Director Name Role Phone Unavailable Primary Care Provider [...] DR Paige ons:Heartburn during in third trimester ([facility]) Take 1 capsule (20 mg) by mouth in the morning. Take before meals. Do not crush or chew. 30 capsule 11 5 09/05/19 26 Active Active Problems Estimated Date of Delivery Comme nts Yes 10/03/2024 Based on last me nstrual period of 12/28/2023 No known active problems Encounters Date Type Department Care Team Description 09/18/2024 Abstract [facility] [address] [place] [address] Valerio Cantor, DO 09/15/2024 Clinisync Result Encounter NOMS External Department Unsolicited Valerio Cantor, DO 09/14/2024 Abstract [facility] [address] [place] [address] Valerio Cantor, DO 09/13/2024 Clinisync Result Encounter NOMS External Department Unsolicited Valerio Cantor, 09/11/2024 9:40 AM EDT Routine [facility] OB [address] [facility] [place] [address] Valerio Cantor, DO Third trimester ([facility]); 36 weeks gestation of ([facility]) 09/11/2024 Bamboo flowsheet [facility] [address] [facility] [place] [address] Valerio Cantor, DO 09/04/2024 9:40 AM EDT Routine [facility] OB [address] [facility] [place] [address] Valerio Cantor, DO Third trimester ([facility]); 35 weeks gestation of ([facility]); Heartburn during in third trimester ([facility]) 09/04/2024 Bamboo flowsheet [facility] OB [address] [facility] [place] [address] Valerio Cantor, DO 08/21/2024 9:40 AM EDT Routine [facility] OB [address] [facility] [address] [address] Valerio Cantor, DO Third trimester ([facility]); 34 weeks gestation of ([facility]) 08/21/2024 Bamboo flowsheet [facility] OB [address] [facility] [place] [address] Valerio Cantor, DO 08/20/2024 Travel 08/07/2024 9:30 AM EDT Routine [facility] OB [address] [facility] [place] [address] Diana Olivares PA Third trimester ([facility]); 31 weeks gestation of ([facility]) 08/07/2024 9:00 AM EDT Ancillary Procedure [facility] OB [address] [facility] [place] [address] size inconsistent with dates ([facility]) 08/06/2024 Travel 07/25/2024 1:10 PM EDT Routine NOM[facility] [address] [place] [address] Valerio Cantor DO 30 weeks gestation of ([facility]); Third trimester ([facility]) 07/25/2024 Bamboo flowsheet [facility] [address] [place] [address] Valerio Cantor DO 07/24/2024 Travel 07/10/2024 9:10 AM EDT Routine [facility] [address] [place] [address] Valerio Cantor DO Second trimester ([facility]); 27 weeks gestation of ([facility]); size inconsistent with dates ([facility]) 07/10/2024 Bamboo flowsheet NOM[facility] [address] [place] [address] Valerio Cantor DO 07/09/2024 Travel 06/23/2024 Clinisync Result Encounter NOMS External Department Unsolicited Valerio Cantor DO from Last 3 Months Social History Tobacco [...] PM EDT Visit [facility] OB [address] [facility] [place] [address] Valerio Cantor, DO [address] [place] [address] [place] [address] Procedures Procedure Name Priority Date/Time Associated Diagnosis Comments ALL CBC WITH AUTO DIFF Routine 6:20 AM EDT TBH DRUG SCREEN RAPID (URINE) Routine 09/13/2024 5:10 PM EDT TB URINE MICROSCOPIC ONLY Routine 09/13/2024 5:10 PM EDT TBH UA (CLEAN/CATCH) ANALYTICS LEAD/MICRO IF IND. Routine 09/13/2024 5:10 PM EDT AMNISURE Routine 09/13/2024 5:09 PM EDT HMHP CBC WITH PLATELET NO DIFFERENTIAL Routine 09/13/2024 5:02 PM EDT POCT URINALYSIS DIPSTICK Routine 09/11/2024 9:57 AM EDT Third trimester ([facility]) CULTURE, GROUP B STREP WITH SUSCEPTIBLITY Routine 09/04/2024 10:36 AM EDT Third trimester ([facility]) POCT URINALYSIS DIPSTICK Routine 09/04/2024 10:04 AM EDT Third trimester ([facility]) POCT URINALYSIS DIPSTICK Routine 08/21/2024 10:24 AM EDT Third trimester ([facility]) 34 weeks gestation of ([facility]) POCT URINALYSIS DIPSTICK Routine 08/07/2024 10:05 AM EDT Third trimester ([facility]) US OB FOLLOW UP TRANSABDOMINAL APPROACH Routine 08/07/2024 9:20 AM EDT size inconsistent with dates ([facility]) POCT URINALYSIS DIPSTICK Routine 07/25/2024 1:14 PM EDT 30 weeks gestation of ([facility]) Third trimester ([facility]) POCT URINALYSIS DIPSTICK Routine 07/10/2024 9:30 AM EDT Second trimester ([facility]) GLUCOSE 1 HOUR Routine 06/23/2024 8:24 AM EDT ALL CBC WITH AUTO DIFF Routine 8:24 AM EDT from Last 3 Months Results * (ABNORMAL) ALL CBC WITH AUTO DIFF (09/15/2024 6:20 AM EDT) Only the most recent of2 resultswithin the time period is included. TBH WBC 10.4 4.0 - 11.0 10 3/uL TBH TBH RBC 3.34(L) 4.20 - 5.40 10 6/uL TBH TBH HGB 9.8(L) 12.0 - 16.0 g/dL TBH TBH HCT 29.4(L) 36.0 - 48.0 % TBH TBH MCV 88.0 81.0 - 99.0 fL TBH TBH MCH 29.3 26.7 - 34.0 pg TBH TBH MCHC 33.3 29.9 - 35.2 g/dL TBH TBH RDW 12.9 11.0 - 15.0 % TBH TBH PLT 157 150 - 450 10 3/uL TBH TBH MPV 9.6 9.5 - 13.5 fL TBH NEUTROPHILS PERCENT AUTO 73.8 43.0 - 75.0 % TBH LYMPHOCYTES PERCENT AUTO 16.8(L) 20.5 - 60.0 % TBH MONOCYTES PERCENT AUTO 7.7 1.7 - 12.0 % TBH TBH EO % 0.8(L) 0.9 - 7.0 % TBH BASOPHILS PERCENT AUTO 0.3 0.2 - 2.0 % TBH IMMATURE GRANULOCYTES PCT AUTO 0.6(H) 0.0 - 0.5 % TBH NEUTROPHILS ABSOLUTE AUTO 7.7(H) 1.4 - 6.5 10 3/uL TBH LYMPHOCYTES ABSOLUTE AUTO 1.8 1.2 - 3.8 10 3/uL TBH MONOCYTES ABSOLUTE AUTO 0.8 0.3 - 0.8 10 3/uL TBH TBH EO # 0.1 0.0 - 0.7 10 3/uL TBH BASOPHILS ABSOLUTE AUTO 0.0 0.0 - 0.1 10 3/uL TBH IMMATURE GRANULOCYTES ABS AUTO 0.06(H) 0.00 - 0.03 10 3/uL TBH 09/15/2024 6:20 AM EDT 09/15/2024 6:22 AM EDT Narrative CLINISYNC - 09/15/2024 6:26 AM EDT CENXzio DO CLINISYNC Final Result Performing Organization Address City/[facility] Co de Phone Number [facility] * (ABNORMAL) TBH URINE MICROSCOPIC ONLY (09/13/2024 5:10 PM EDT) Pathologist [facility] TB WBC 0-2(A) NONE SEEN #/HPF TBH TBH RBC 0-2 0 - 2 #/HPF TBH BACTERIA URINE SMALL(A) NONE SEEN #/HPF TBH MUCUS URINE TRACE(A) NONE SEEN TBH SQUAMOUS EPITHELIAL CELL URINE MODERATE(A ) NONE/RARE #/LPF TBH CRYSTALS SEEN? None Seen None Seen #/HPF TBH CAST SEEN? NONE SEEN NONE SEEN #/LPF TBH URINE CULTURE INDICATED YES-LC TBH 09/13/2024 5:10 PM EDT 09/13/2024 5:31 PM EDT Narrative CLINISYNC - 09/13/2024 5:51 PM EDT Voucherlink Sakshi DO CLINISYNC Final Result [facility] * (ABNORMAL) TBH UA (CLEAN/CATCH) ANALYTICS LEAD/MICRO IF IND. (09/13/2024 5:10 PM EDT) COLOR URINE LT. YELLOW YELLOW TBH CLARITY URINE CLEAR CLEAR TBH SPECIFIC GRAVITY URINE 1.025 1.005 - 1.025 TBH PH URINE 6.0 5.0 - 9.0 TBH PROTEIN URINE NEGATIVE NEG/TRACE mg/dL TBH GLUCOSE URINE UA NEGATIVE NEGATIVE mg/dL TBH BILIRUBIN URINE NEGATIVE NEGATIVE TBH KETONES URINE TRACE(A) NEGATIVE mg/dL TBH BLOOD URINE NEGATIVE NEGATIVE TBH NITRITE URINE NEGATIVE NEGATIVE TBH UROBILINOGEN URINE 0.2 0.2 - 1.0 EU/dL TBH LEUKOCYTE ESTERASE URINE TRACE(A) NEGATIVE TBH URINE MICROSCOPIC INDICATED YES TBH 09/13/2024 5:10 PM EDT 09/13/2024 5:31 PM EDT Narrative CLINISYNC - 09/13/2024 5:51 PM EDT Valerio Sakshi DO CLINISYNC Final Result [facility] * TBH DRUG SCREEN RAPID (URINE) (09/13/2024 5:10 PM EDT) CANNABINOID SCREEN URINE NEGATIVE NEGATIVE TBH PHENCYCLIDINE SCREEN URINE NEGATIVE NEGATIVE TBH COCAINE SCREEN URINE NEGATIVE NEGATIVE TBH METHAMPHETAMINES SCREEN URINE NEGATIVE NEGATIVE TBH OPIATE SCREEN URINE NEGATIVE NEGATIVE TBH AMPHETAMINE SCREEN URINE NEGATIVE NEGATIVE TBH BENZODIAZEPINES SCREEN URINE NEGATIVE NEGATIVE TBH TRICYCLIC ANTIDEPRESSANT URINE NEGATIVE NEGATIVE TBH METHADONE SCREEN URINE NEGATIVE NEGATIVE TBH BARBITURATES SCREEN URINE NEGATIVE NEGATIVE TBH OXYCODONE SCREEN URINE NEGATIVE NEGATIVE TBH BUPRENORPHINE SCREEN URINE NEGATIVE NEGATIVE TBH Comment: DRUG CLASS TEST SYSTEM CUT-OFF CONCENTRATIONS ARE FOLLOWS: AMP (Amphetamine): 500 ng/mL BAR (Barbiturates): 200 ng/mL BZO (Benzodiazepines): 150 ng/mL BUP (Buprenorphine): 10 ng/mL NANCY (Cocaine): 150 ng/mL mAMP (Methamphetamine): 500 ng/mL MTD (Methadone): 200 ng/mL OPI (Opiates): 100 ng/mL OXY (Oxycodone): 100 ng/mL PCP (Phencyclidine): 25 ng/mL THC (Cannabinoids): 50 ng/mL TCA (Trycyclic Antidepressants): 300 ng/mL 09/13/2024 5:10 PM EDT 09/13/2024 6:32 PM EDT Narrative CLINISYNC - 09/13/2024 6:47 PM EDT Valerio Sakshi DO CLINISYNC Final Result [facility] * (ABNORMAL) AMNISURE (09/13/2024 5:09 PM EDT) [facility] AMNISURE POSITIVE(A ) NEGATIVE TB 09/13/2024 5:09 PM EDT 09/13/2024 5:19 PM EDT Narrative CLINISYNC - 09/13/2024 5:33 PM EDT Valerio Sakshi DO LAB BLOOD ORDERABLES Final Resul t Performing Organization Address City/[facility]/ZIP Co de Phone Number [facility] * (ABNORMAL) HP CBC WITH PLATELET NO DIFFERENTIAL (09/13/2024 5:02 PM EDT) [facility] WBC 12.0(H) 4.0 - 11.0 10 3/uL TBH TBH RBC 4.18(L) 4.20 - 5.40 10 6/uL TBH TBH HGB 12.2 12.0 - 16.0 g/dL TBH TBH HCT 36.0 36.0 - 48.0 % TBH TBH MCV 86.1 81.0 - 99.0 fL TBH TBH MCH 29.2 26.7 - 34.0 pg TBH TBH MCHC 33.9 29.9 - 35.2 g/dL TBH TBH RDW 12.7 11.0 - 15.0 % TBH TBH PLT 203 150 - 450 10 3/uL TBH TBH MPV 9.4(L) 9.5 - 13.5 fL TBH 09/13/2024 5:02 PM EDT 09/13/2024 7:06 PM EDT Narrative CLINISYNC - 09/13/2024 7:13 PM EDT us Valerio Sakshi DO CLINISYNC Final Result Performing Organization Address [facility]/ZIP Co de Phone Number [facility]NC [facility] * POCT urinalysis dipstick manually resulted (09/11/2024 9:57 AM EDT) Only the most recent of6 [...] DO LAB BLOOD ORDERABLES Final Resul t Performing Organization Address City/[facility]/ZIP Co de Phone Number EXTERNAL LAB * US OB follow up [...] 1 oz) which correlates to 35 %. KIMBELRYN is 10/04/2024. Interpreted by: Electronically signed by MALCOM SCHULTZ II, MD, PHD at 08-Aug-2024 08:23:33 AM [facility] Procedure Note Malcom Schultz MD - [...] MALCOM SCHULTZ II, MD, PHD 08:23:33 AM [facility] us Valerio Sakshi DO IMG OB US PROCEDURES Final Resul t * GLUCOSE 1 HOUR (06/23/2024 8:24 AM EDT) GLUCOSE 1 HOUR 87 <130 mg/dL TBH 06/23/2024 8:24 AM EDT 06/23/2024 8:26 AM EDT Narrative CLINISYNC - 06/23/2024 8:38 AM EDT us Valerio Sakshi DO LAB BLOOD ORDERABLES Final Resul [facility] Last 3 Months Insurance [facility]
--- OUTSIDE RECORDS SUMMARY | 2024-09-20 08:53 | XMS_ITS | Encounter Summary ---
Author Organization [facility] Address [address] [facility] [place] [address] Care Team Providers Care Renovation Plant Supervisor Name Role Phone Unavailable Primary Care Provider Unavailabl e Encounter Details Date Type Department Care Team (Late st Contact Info) Description 09/18/2024 Abstract [facility] OB [address] [place] [address] Valerio Cantor DO [address], [facility]11 Social History Tobacco Use Types Packs/Day [...] PM EDT Visit [facility] OB [address] [place] [address] Valerio Cantor DO [address] [place], [place] [id number] documented as of this encounter Visit Diagnoses Not on filedocumented in this encounter
--- OUTSIDE RECORDS SUMMARY | 2024-09-20 08:53 | XMS_ITS | Encounter Summary ---
Author Organization [facility] Address [address] [facility] [place] [address] Care Team Providers Care Heat Treater Name Role Phone Unavailable Primary Care Provider Unavailabl e Encounter Details Date Type Department Care Team (Late st Contact Info) Description 11/09/2023 Abstract [facility] OB [address] [place] [address] Valerio Cantor DO [address], [facility]11 Social History Tobacco Use Types Packs/Day Years [...] Visit [facility] OB [address] [place] [address] Valerio Cantor DO [address], [facility]11 documented as of this encounter Visit Diagnoses Not on filedocumented in this encounter
--- OUTSIDE RECORDS SUMMARY | 2024-09-20 08:53 | XMS_ITS | Clinical Summary ---
Author Organization [employer] Address [id number] [address] [place] [address] Care Team Providers Care Soa Architect Name Role Phone Moncho Arredondo MD Primary Care Provider [phone] Allergies No known active allergies Medications letrozole (FEMARA) 2.5 mg chemo tablet Take 1 tablet by mouth As directed by DIDACTIC INSTRUCTOR 4 Active tretinoin (RETIN-A) 0.1 % creamIndication s:Acne vulgaris Apply 1 Application topically nightly. 45 g 2 4 Active Social History Tobacco Use Types Packs/Day Years Used Date Smoking Tobacco: Never Smokeless Tobacco: Never Tobacco Cessation:Counseling Given: No Alcohol Use Standard Drinks/Week Comments Yes 0 (1 standard drink = 0.6 oz pur e alcohol) PHQ-2 Answer Date Recorded Total Score 0 11/30/2023 Hunger Screening Answer Date Recorded Within the past 12 months we worried whether our food would run out before we got money to buy more. Never True 11/30/2023 Within the past 12 months th e food we bought just didn't last and we didn't have money to get more. Never True 11/30/2023 Comments Unknown Sex and Gender Information Value Date Recorded Sex Assigned at Not on file Legal Sex Female 10:24 AM EDT Gender Identity Not on file Sexual Orientation Not on file Last Filed Vital Signs Vital Sign Reading Time Taken Comments Blood Pressure 110/74 11/30/2023 10:32 AM EDT Pulse 92 11/30/2023 10:32 AM EDT Temperature - - Respiratory Rate - - Oxygen Saturation - - Inhaled Oxygen Concentration - - Weight 53.1 kg (117 lb) 11/30/2023 10:32 AM EDT Height 163 cm (5' 4.17 ) 11/30/2023 10:32 AM EDT Body Mass Index 19.97 11/30/2023 10:32 AM EDT Plan of Treatment Health Maintenance Due Date Last Done Comments DTaP,Tdap and Td Vaccines (1 - Tdap) 2016 Pap Smear 2018 Influenza Vaccine 10/29/2024 Adult BMI Screening 11/29/2024 11/30/2023 Depression Screening 11/29/2024 11/30/2023 Tobacco Screening 11/29/2024 11/30/2023 Medical Devices Not on file Insurance [facility] Care Teams Soa Architect Relationship Specialty Start Date End Date Moncho Arredondo MD [address] [place] [address], [address] [place] [id number] PCP - General Pediatrics 11/30/23
--- OUTSIDE RECORDS SUMMARY | 2024-09-20 08:53 | XMS_ITS | Encounter Summary ---
Author Organization [facility] Address [address] [place] [address] Care Team Providers Care Placing Judge Name Role Phone Unavailable Primary Care Provider Unavailabl e Encounter Details Date Type Department Care Team (Late st Contact Info) Description 12/14/2023 Abstract [facility] OB [address] [place] [address] Valerio Cantor DO [address], [facility]11 Social History Tobacco Use Types [...] Visit [facility] [address] [place] [address] Valerio Cantor DO [address], [facility]11 documented as of this encounter Visit Diagnoses Not on filedocumented in this encounter
--- OUTSIDE RECORDS SUMMARY | 2024-09-20 08:53 | XMS_ITS | Encounter Summary ---
Author Organization [facility] Address [address] [facility] [place] [address] Care Team Providers Care Heel Compressor Name Role Phone Unavailable Primary Care Provider Unavailabl e Encounter Details Date Type Department Care Team (Late st Contact Info) Description 09/15/2024 Clinisync Result Encounter NOMS External Department Unsolicited Valerio Cantor, DO [address], [place] [phone] Social History Tobacco Use Types Packs/Day Years [...] PM EDT Visit [facility] BCP OB [address] [place] [phone] Valerio Cantor, DO [address], [place] [id number] documented as of this encounter Procedures Procedure Name Priority Date/Time Associated Diagnosis Comments ALL CBC WITH AUTO DIFF Routine 09/15/2024 6:20 AM EDT documented in this encounter Results * (ABNORMAL) ALL CBC WITH AUTO DIFF (09/15/2024 6:20 AM EDT) [facility] TBH WBC 10.4 4.0 - 11.0 10 [...] Narrative CLINISYNC - 09/15/2024 6:26 AM EDT us Valerio Sakshi DO CLINISYNC Final Result [facility] documented in this encounter Visit Diagnoses Not on filedocumented in this encounter
--- OUTSIDE RECORDS SUMMARY | 2024-09-20 08:53 | XMS_ITS | Encounter Summary ---
Author Organization [facility] Address [address] [facility] [place] [address] Care Team Providers Care Resistance Brazer Name Role Phone Unavailable Primary Care Provider Unavailabl e Encounter Details Date Type Department Care Team (Late st Contact Info) Description 09/11/2024 Bamboo flowsheet [facility] OB [address] [place] [address] Valerio Cantor DO [address], [facility]11 Social History Tobacco Use Types Packs/Day [...] Visit [facility] BCP OB [address] [place] [address] Valerio Cantor DO [address], [place] [id number] documented as of this encounter Visit Diagnoses Not on filedocumented in this encounter
--- OUTSIDE RECORDS SUMMARY | 2024-09-20 08:53 | XMS_ITS | Encounter Summary ---
Author Organization [facility] Address [address] [facility] [place] [address] Care Team Providers Care Cardiology Clinical Nurse Specialist Name Role Phone Unavailable Primary Care Provider Unavailabl e Encounter Details Date Type Department Care Team (Late st Contact Info) Description 04/19/2024 Abstract [facility] OB [address] [place] [address] Valerio Cantor DO [address], [facility]11 Social History Tobacco Use Types [...] Visit [facility] BCP OB [address] [place] [address] Valerio Cantor DO [address], [place] [phone] documented as of this encounter Visit Diagnoses Not on filedocumented in this encounter
--- OUTSIDE RECORDS SUMMARY | 2024-09-20 08:53 | XMS_ITS | Encounter Summary ---
Author Organization [facility] Address [address] [facility] [place] [address] Care Team Providers Care Community Center Director Name Role Phone Unavailable Primary Care Provider Unavailabl e Encounter Details Date Type Department Care Team (Late st Contact Info) Description 09/13/2024 Clinisync Result Encounter NOMS External Department Unsolicited Valerio Cantor, DO [address], [place] [id number] Social History Tobacco Use Types Packs/Day Years [...] PM EDT Visit [facility]CP OB [address] [facility] [place] [phone] Valerio Cantor, [address], [place] [phone] documented as of this encounter Procedures Procedure Name Priority Date/Time Associated Diagnosis Comments TB URINE MICROSCOPIC ONLY Routine 09/13/2024 5:10 PM EDT TBH UA (CLEAN/CATCH) PHOTOSTAT OPERATOR/MICRO IF IND. Routine 09/13/2024 5:10 PM EDT TBH DRUG SCREEN RAPID (URINE) Routine 09/13/2024 5:10 PM EDT AMNISURE Routine 09/13/2024 5:09 PM EDT [facility] CBC WITH PLATELET NO DIFFERENTIAL Routine 09/13/2024 5:02 PM EDT documented in this encounter Results * TBH DRUG SCREEN RAPID (URINE) (09/13/2024 [...] Narrative CLINISYNC - 09/13/2024 6:47 PM EDT us Valerio Sakshi DO CLINISYNC Final Result [facility]NC [facility] * (ABNORMAL) [facility] URINE MICROSCOPIC ONLY (09/13/2024 5:10 PM EDT) TBH WBC 0-2(A) NONE SEEN #/HPF TBH TBH [...] EDT Valerio Sakshi DO CLINISYNC Final Result Performing Organization Address [facility] Co de Phone Number [facility]IS[facility]NC [facility] * (ABNORMAL) TBH UA (CLEAN/CATCH) PHOTOSTAT OPERATOR/MICRO IF IND. (09/13/2024 5:10 PM EDT) COLOR [...] Narrative CLINISYNC - 09/13/2024 5:51 PM EDT Mytopiazio DO CLINISYNC Final Result Performing Organization Address [facility] Co de Phone Number [facility]NC [facility] * (ABNORMAL) AMNISURE (09/13/2024 5:09 PM EDT) Pathologist [facility] AMNISURE POSITIVE(A ) NEGATIVE TBH 09/13/2024 5:09 PM EDT 09/13/2024 5:19 PM EDT Narrative CLINISYNC - 09/13/2024 5:33 PM EDT us Valerio Sakshi DO LAB BLOOD ORDERABLES Final Resul t [facility] * (ABNORMAL) HP CBC WITH PLATELET NO DIFFERENTIAL (09/13/2024 5:02 PM EDT) Pathologist [facility] TB WBC 12.0(H) 4.0 - 11.0 10 3/uL [...] us Valerio Sakshi DO CLINISYNC Final Result [facility] documented in this encounter Visit Diagnoses Not on filedocumented in this encounter
--- OUTSIDE RECORDS SUMMARY | 2024-09-20 08:53 | XMS_ITS | Encounter Summary ---
Author Organization [facility] Address [address] [facility] [place] [address] Care Team Providers Care Boiler House Inspector Name Role Phone Unavailable Primary Care Provider Unavailabl e Encounter Details Date Type Department Care Team (Late st Contact Info) Description 01/20/2024 Abstract [facility] OB [address] [place] [address] Valerio Cantor DO [address], [facility]11 Social History Tobacco Use Types Packs/Day [...] Visit [facility] BCP OB [address] [place] [address] Valerio Cantor, DO [address], [facility]11 documented as of this encounter Visit Diagnoses Not on filedocumented in this encounter
--- OUTSIDE RECORDS SUMMARY | 2024-09-20 08:53 | XMS_ITS | Encounter Summary ---
Author Organization [facility] Address [address] [facility] [place] [address] Care Team Providers Care Shaping Machine Tender Name Role Phone Unavailable Primary Care Provider Unavailabl e Encounter Details Date Type Department Care Team (Late st Contact Info) Description 11/16/2023 Abstract [facility] OB [address] [place] [address] Valerio Cantor DO [address], [facility]11 Social History Tobacco Use Types Packs/Day Years [...] [address] Valerio Cantor DO [address], [facility]11 documented as of this encounter Visit Diagnoses Not on filedocumented in this encounter
--- OUTSIDE RECORDS SUMMARY | 2024-09-20 08:53 | XMS_ITS | Encounter Summary ---
Author Organization [facility] Address [address] [facility] [place] [address] Care Team Providers Care Golf Ball Cover Treater Name Role Phone Unavailable Primary Care Provider Unavailabl e Encounter Details Date Type Department Care Team (Late st Contact Info) Description 09/14/2024 Abstract [facility] OB [address] [place] [address] Valerio Cantor DO [address], [facility]11 Social History Tobacco Use Types [...] Valerio Cantor DO [address], [place] [id number] documented as of this encounter Visit Diagnoses Not on filedocumented in this encounter
--- OUTSIDE RECORDS SUMMARY | 2024-09-20 08:53 | XMS_ITS | Encounter Summary ---
Author Organization [facility] Address [address] [place] [address] Care Team Providers Care Hearing Impaired Itinerant Teacher Name Role Phone Unavailable Primary Care Provider Unavailabl e Encounter Details Date Type Department Care Team (Late st Contact Info) Description 11/23/2023 Clinisync Result Encounter [facility] External Department Unsolicited Ramses Cantor, DO [address] [place] [address] Social History Tobacco Use Types Packs/Day Years [...] PM EDT Visit [facility] [address] [place] [address] Ramses Cantor, DO [address] [place] [address] documented as of this encounter Procedures Procedure Name Priority Date/Time Associated Diagnosis Comments US PELVIS W/ TRANSVAGINAL 11/23/2023 2:23 PM EDT documented in this encounter Results * US PELVIS W/ TRANSVAGINAL (11/23/2023 2:23 PM EDT) Anatomical Region Laterality Modality Other 11/23/2023 2:23 PM EDT Narrative 11/23/2023 2:26 [place] [address] Ultrasound Report Signed Patient: CARMELINA DUKE MR#: [id number] : 1995 Acct:[id number] Age/Sex: 28 / F ADM Date: 11/23/23 Loc: US Attending Dr: Ramses Cantor D.O. Ordering Physician: Ramses Cantor D.O. Date of Service: 11/23/23 Procedure(s): US pelvis w/ transvaginal Accession Number(s): [id number] cc: Ramses Cantor D.O.; Physician,Non-Staff [place] [id number] Patient Name: CARMELINA DUKE MRN: [facility]:[id number] date: 1995 Sex: F Assigned Patient Location: Current Patient Location: US Accession/Order Number: [id number] Exam Date: 11/23/2023 12:58 Report Date: 11/23/2023 [...] Navarro M.D. Signed By: 11/23/23 1426 DD/ 142 TD/TT: Manufacturer Agent: Procedure Note Radiology, Radiologist, MD - 11/23/2023 [place] [address] Ultrasound Report Signed Patient: CARMELINA DUKE#: [id number] : 1995Acct:[id number] Age/Sex: 28 / FADM Date: 11/23/23 Loc: US Attending Dr: Ramses Cantor D.O. Ordering Physician: Ramses Cantor D.O. Date of Service: 11/23/23 Procedure(s): US pelvis w/ transvaginal Accession Number(s): [id number] cc: Ramses Cantor D.O.; Physician,Non-Staff [place] [id number] Patient Name: CARMELINA DUKE MRN: [id number] date: 1995 Sex: F Assigned Patient Location: US Current Patient Location: US Accession/Order Number: [id number] Exam Date: 11/23/2023 12:58 Report Date: 11/23/2023 [...] M.D. Signed By:11/23/23 1426 DD/ 1423 TD/TT: Manufacturer Agent: [facility] Final Result documented in this encounter Visit Diagnoses Not on filedocumented in this encounter
--- OUTSIDE RECORDS SUMMARY | 2024-09-20 08:53 | XMS_ITS | Encounter Summary ---
Author Organization [facility] Address [address] [facility] [place] [address] Care Team Providers Care Potato Peeling Machine Operator Name Role Phone Unavailable Primary Care Provider Unavailabl e Encounter Details Date Type Department Care Team (Late st Contact Info) Description 11/24/2023 Abstract [facility] [address] [place] [address] Valerio Cantor DO [address] [place], [facility] Social History Tobacco Use Types Packs/Day [...] Visit [facility] [address] [place] [address] Valerio Cantor DO [address] [place], [facility] documented as of this encounter Visit Diagnoses Not on filedocumented in this encounter
--- OUTSIDE RECORDS SUMMARY | 2024-09-20 08:53 | XMS_ITS | Encounter Summary ---
Author Organization [facility] Address [address] [place] [address] Care Team Providers Care Web Production Manager Name Role Phone Unavailable Primary Care Provider Unavailabl e Encounter Details Date Type Department Care Team (Late st Contact Info) Description 03/21/2024 Abstract [facility] [address] [place] [address] Valerio Cantor DO [address], [facility] Social History Tobacco Use Types Packs/Day Years [...] [address] Valerio Cantor DO [address] [place], [place] [id number] documented as of this encounter Visit Diagnoses Not on filedocumented in this encounter
--- OUTSIDE RECORDS SUMMARY | 2024-09-20 08:54 | XMS_ITS | Encounter Summary ---
Author Organization [facility] Address [address] [facility] [place] [address] Care Team Providers Care Embryology Teacher Name Role Phone Unavailable Primary Care Provider Unavailabl e Encounter Details Date Type Department Care Team (Late st Contact Info) Description 03/19/2024 Abstract [facility] [address] [place] [address] [...] Valerio Cantor DO [address] [place], [place] [id number] documented as of this encounter Visit Diagnoses Not on filedocumented in this encounter
--- NOTE | 2024-09-20 14:47 | PC.NURSE ---
Contreras Cosme and 6 day old Chase arrive for support. Parents states doing better, feeds well 20ml expressed milk then finishes feed at the breast usually 10 minutes. 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 Encouraged to initiate feeds at the breast and top off baby with pumped milk. Mom pumps 1 oz each breast in under 4 minutes. Supply is strong. Again encouraged to breastfeed first and will start decreasing supplements after breast. Baby noted to be yellow/ orange in color and transcutaneous bili is 16.7. Reflexive order for serum level completed. Specimen to lab. Mom independently nurses baby and does well. Nursed 12/07, burped well and sleepy. Test results reveal bili of 22.7 and infant to stay observation for double photo therapy under the care of Dr Thornton. Parents verbalize understanding. Given handout on Jaundice in NB and Breast feeding. To room 254 and care of infant relinquished to Gilberto MORA.
== END 2024-09-20 14:56 | disposition home or self-care (01) ==
LOC: FBCO 08:51
PROVIDERS: PCP Internal Medicine; Visit Provider Obstetrics & Gynecology
DX: Z39.1 Encounter for care and examination of lactating mother (principal)

== ENCOUNTER 2024-09-28 08:34 | Outpatient (OUT) | payer OTHER, SELFPAY ==
--- OUTSIDE RECORDS SUMMARY | 2024-09-28 08:48 | XMS_ITS | CCD ---
Author Organization [facility] Care Team Providers Care Wet End Helper Name Role Phone POOL, DORCAS Gonzalez Referring Unavailable MALCOM GUNTER Primary Care Unavailable Malcom Gunter Primary Care Provider [phone] MALCOM GUNTER Attending Unavailab le JANI, MALCOM CHOI Primary Care Unavailab le SAKSHI ., DR PEARCE Admitting Unavailable SAKSHI ., DR PEARCE Attending Unavailable SAKSHI ., DR PEARCE Consulting Unavailable REQUEST, DR NONE LISTED Primary Care Unavaila ble GEMBUS, MICHAEL Consulting Unavailable SAKSHI ., DR PEARCE Procedure Practitioner Unavail able SAKSHI ., DR PEARCE Consulting Unavailable REQUEST, DR NONE LISTED Primary Care Unavaila ble MISC, DR RAMOS Attending Unavailable MISC, DR RAMOS Admitting Unavailable SAKSHI ., DR PEARCE Admitting Unavailable REQUEST, NONE LISTED Primary Care Unavaila ble SAKSHI ., DR PEARCE Attending Unavailable SAKSHI ., DR PEARCE Admitting Unavailable REQUEST, DR TURK LISTED Primary Care Unavaila ble SAKSHI ., DR PEARCE Attending Unavailable REQUEST, DR NONE LISTED Primary Care Unavaila ble SAKSHI ., DR PEARCE Attending Unavailable SAKSHI ., DR PEARCE Admitting Unavailable SAKSHI ., DR PEARCE Consulting Unavailable REQUEST, NONE LISTED Primary Care Unavaila ble SAKSHI ., DR PEARCE Attending Unavailable SAKSHI ., DR PEARCE Admitting Unavailable SAKSHI ., DR PEARCE Admitting Unavailable SAKSHI ., DR PEARCE Attending Unavailable WEST, DR WALLY Seymour Consulting Unavailable REQUEST, DR TURK LISTED Primary Care Unavaila ble SAKSHI ., DR PEARCE Consulting Unavailable SAKSHI ., DR PEARCE Admitting Unavailable REQUEST, DR NONE LISTED Primary Care Unavaila ble SAKSHI ., DR PEARCE Consulting Unavailable SAKSHI ., DR PEARCE Attending Unavailable SAKSHI ., DR PEARCE Admitting Unavailable REQUEST, DR NONE LISTED Primary Care Unavaila ble SAKSHI ., DR PEARCE Consulting Unavailable SAKSHI ., DR PEARCE Attending Unavailable ZIEBER, DR SOY Suazo Consulting Unavailable SAKSHI ., DR PEARCE Admitting Unavailable REQUEST, DR NONE LISTED Primary Care Unavaila ble SAKSHI ., DR PEARCE Consulting Unavailable SAKSHI ., DR PEARCE Attending Unavailable YOVANI, DR SOY Suazo Consulting Unavailable VIDYA, PA Marquez Attending Unavailable Unavailable Primary Care Provider Unavailbharath Dasilva MD, Pa Marquez Primary Care Provider SAKSHI, RAMSES Attending Unavailable SAKSHI, RAMSES Attending Unavailable SAKSHI, RAMSES Attending Unavailable SAKSHI, RAMSES Attending Unavailable SAKSHI, RAMSES Attending Unavailable SAKSHI, RAMSES Attending Unavailable SAKSHI, RAMSES Attending Unavailable SAKSHI, RAMSES Referring Unavailable DIANA SAMUEL Attending Unavailable SAKSHI, RAMSES Attending Unavailable SAKSHI, RAMSES Attending Unavailable SAKSHI, RAMSES Attending Unavailable Allergies Allergy Classification Reported Allergen(s) Allergy Type Date of Onset Reaction(s) Facility (20 sources) Spironolactone Drug Allergy 4 Rash [facility] Medications Current Medications Medication Drug Class(es) Dates Sig (Normalized) Sig (Original) 168 hr ethinyl estradiol 0.17993 mg/hr / norelgestromin 0.54203 mg/hr transdermal system (1 source) Progestin, Estrogen Start: 05-08-2019 norelgestromin-eth inyl estradiol (ORTHO EVRA) 150-35 MCG/24HR Indications: DUB (dysfunctional uterine bleeding) , Acne cystica Place 1 patch onto the skin every 7 days 12 patch 4 05/08/2019 Active ibuprofen 600 mg oral tablet (1 source) Nonsteroidal Anti-inflammatory Drug Start: 05-08-2019 take 1 tablet by mouth three times daily as needed for pain ibuprofen (ADVIL;MOTRIN) 600 MG tablet Indications: Dysmenorrhea Take 1 tablet by mouth 3 times daily as needed for Pain 90 tablet 2 05/08/2019 Active letrozole 2.5 mg oral tablet (1 source) Aromatase Inhibitor Start: 11-14-2023 letrozole (FEMARA) 2.5 mg chemo tablet Take 1 tablet by mouth As directed by CLINICAL PSYCHOLOGIST 11/14/2023 Active magnesium oxide 400 mg oral tablet (19 sources) Start: 03-12-2024 End: 04-11-2024 take 1 tablet by mouth once daily MAGnesium-Oxide 400 (240 Mg) MG tablet Take 400 mg by mouth Daily 03/12/2024 Active End: 11-09-2023 Magnesium Oxide -Mg Suppleme nt 400 MG capsule 1 (one) time each day at the same time 11/09/2023 Discontinued (Therapy completed) omeprazole 20 mg delayed release oral capsule (7 sources) Proton Pump Inhibitor Start: 09-04-2024 End: 09-04-2025 take 1 capsule by mouth before mealtime omeprazole (PriLOSEC) [address] capsule Indications: Heartburn during in third trimester (HHS-HCC) Take 1 capsule (20 mg) by mouth in the morning. Take before meals. Do not crush or chew. 30 capsule 11 09/04/2024 09/04/2025 Active ondansetron 4 mg disintegrating oral tablet (2 sources) Serotonin-3 Receptor Antagonist Start: 02-14-2024 End: 03-15-2024 take 1 tablet by mouth every six hours as needed for nausea and vomiting and nausea and nausea ondansetron ODT (Zofran-ODT) 4 MG disintegrating tablet Indications: Nausea Take 1 tablet (4 mg) by mouth every 6 (six) hours if needed for nausea or vomiting 30 tablet 3 02/14/2024 03/15/2024 Active Vit-Fe Fumarate-FA (PNV FOLIC ACID + IRON PO) (20 sources) Vit-Fe Fumarate-FA (PNV FOLIC ACID + IRON PO) PNV Folic Acid + Iron Active tretinoin 1 mg/ml topical cream (20 sources) Retinoid Start: 11-30-2023 tretinoin (Retin-A) 0.1 % cream APPLY CREAM TOPICALLY TO AFFECTED AREA NIGHTLY 11/30/2023 Active Start: 03-11-2023 End: 07-25-2024 tretinoin (Retin-A) 0.05 % c ream Indications: Irritant contact dermatitis, unspecified trigger Apply to the face qPM 45 g 3 03/11/2023 07/25/2024 Discontinued Completed/Discontinued Medications Medication Drug Class(es) Dates Sig (Normalized) Sig (Original) levonorgestrel 0.324322 mg/hr intrauterine system (6 sources) Progestin, Progestin-containi ng Intrauterine Device Start: 01-27-2022 End: 11-09-2023 Levonorgestrel (Mirena, 52 MG,) 20 MCG/DAY intrauterine device 01/27/2022 11/09/2023 Discontinued (Therapy completed) spironolactone 100 mg oral tablet (3 sources) Aldosterone Antagonist Start: 12-17-2022 End: 11-09-2023 take 1 tablet by mouth once daily spironolactone (Aldactone) 100 MG tablet Take 100 mg by mouth Daily 12/17/2022 11/09/2023 Discontinued (Side effects) Problems Active Problems Problem Classification Problem Date Documented Date Episodic/Chronic Cardiac dysrhythmias (2 sources) Palpitations; Translations: [Palpitations] Onset: 11-30-2023 11-30-2023 Episodic Female infertility (2 sources) Female infertility; Translations: [Female infertility, unspecified] 11-09-2023 Chronic Hemorrhoids (2 sources) Hemorrhoids; Translations: [Unspecified hemorrhoids] 05-17-2024 Episodic Immunizations and screening for infectious disease (3 sources) Encounter for screening for human papillomavirus (HPV); Translations: [Exposure to sexually transmissible disorder] Onset: 05-28-2022 04-18-2024 Episodic Menstrual disorders (5 sources) Irregular menstruation, unspecified; Translations: [Missed period] Onset: 07-13-2021 Chronic Other complications of (2 sources) size does not accord with dates; Translations: [Uterine size-date discrepancy, unspecified trimester] 07-10-2024 Episodic Other complications of (2 sources) Heartburn; Translations: [Other specified related conditions, third trimester] 09-04-2024 Episodic Other endocrine disorders (2 sources) Polycystic ovary syndrome; Translations: [Polycystic ovarian syndrome] 11-09-2023 Chronic Other female genital disorders (2 sources) Abnormal uterine bleeding; Translations: [Abnormal uterine and vaginal bleeding, unspecified] 11-09-2023 Chronic Other female genital disorders (2 sources) Vaginal discharge; Translations: [Other specified noninflammatory disorders of vagina] 04-18-2024 Episodic Other and delivery including normal (20 sources) Encounter for routine follow-up; Translations: [Encounter for supervision of normal first , third trimester] Onset: 11-25-2021 Episodic Other screening for suspected conditions (not mental disorders or infectious disease) (18 sources) Encounter for screening for malignant neoplasm of cervix; Translations: [Encounter for screening for Streptococcus B] Onset: 08-08-2021 Episodic Other skin disorders (1 source) Acne vulgaris; Translations: [Acne vulgaris] Onset: 11-30-2023 Episodic Residual codes; unclassified (2 sources) Gestation period, 12 weeks; Translations: [12 weeks gestation of ] 03-21-2024 Episodic Residual codes; unclassified (2 sources) Gestation period, 16 weeks; Translations: [16 weeks gestation of ] 04-18-2024 Episodic Residual codes; unclassified (2 sources) Gestation period, 20 weeks; Translations: [20 weeks gestation of ] 05-17-2024 Episodic Residual codes; unclassified (2 sources) Gestation period, 24 weeks; Translations: [24 weeks gestation of ] 06-14-2024 Episodic Residual codes; unclassified (2 sources) Gestation period, 27 weeks; Translations: [27 weeks gestation of ] 07-10-2024 Episodic Residual codes; unclassified (2 sources) Gestation period, 30 weeks; Translations: [30 weeks gestation of ] 07-25-2024 Episodic Residual codes; unclassified (2 sources) Gestation period, 31 weeks; Translations: [31 weeks gestation of ] 08-07-2024 Episodic Residual codes; unclassified (2 sources) Gestation period, 34 weeks; Translations: [34 weeks gestation of ] 08-21-2024 Episodic Residual codes; unclassified (2 sources) Gestation period, 35 weeks; Translations: [35 weeks gestation of ] 09-04-2024 Episodic Residual codes; unclassified (2 sources) Gestation period, 36 weeks; Translations: [36 weeks gestation of ] 09-11-2024 Episodic Unclassified (2 sources) Patient encounter status; Translations: [Screen for STD (sexually transmitted disease)] Unclassified (1 source) CONTACT W/AND (SUSP) EXPOS COVID-19; Translations: [CONTACT W/AND (SUSP) EXPOS COVID-19] Onset: 12-02-2021 Unclassified (1 source) new patient Onset: 11-30-2023 Past or Other Problems Problem Classification Problem Date Documented Date Episodic/Chronic Early or threatened labor (4 sources) False labor at or after 37 completed weeks of gestation; Translations: [FALSE LABOR AT/AFTR 37 CMPL WK GEST] Onset: 11-23-2021 Episodic Mood disorders (1 source) Mood disorders Onset: 11-30-2023 11-30-2023 OB-related trauma to perineum and vulva (1 source) First degree perineal laceration during delivery; Translations: [FIRST DEG PERINEAL LAC DUR DELIV] Onset: 12-02-2021 Episodic Other female genital disorders (4 sources) Other specified noninflammatory disorders of vagina; Translations: [OTH SPEC NONINFLAMMATORY D/O VAGINA] Onset: 11-12-2021 Episodic Other skin disorders (1 source) Acne vulgaris; Translations: [Acne vulgaris] 11-30-2023 Episodic Residual codes; unclassified (1 source) 39 weeks gestation of ; Translations: [39 WEEKS GESTATION OF ] Onset: 12-02-2021 Episodic NEGATED: Highlighted row has been ruled out!Unclassified (20 sources) No known active problems 03-11-2023 Results Test Name Value Interpretation Reference Range Facility ALL CBC WITH AUTO DIFFon BASOPHILS ABSOLUTE AUTO 0 [facility] Basophils/100 WBC (Bld) 0.3 % 0.2 - 2.0 % [facility] Eosinophils/100 WBC (Bld) 0.8 % Low 0.9 - 7.0 % [facility] Erythrocyte distribution width (RBC) [Ratio] 12.9 % 11.0 - 15.0 % [facility] Hematocrit (Bld) [Volume fraction] 29.4 % Low 36.0 - 48.0 % [facility] Hemoglobin (Bld) [Mass/Vol] 9.8 g/dL Low 12.0 - 16.0 g/dL [facility] IMMATURE GRANULOCYTES ABS AUTO 0.06 High [facility] Immature granulocytes/100 WBC (Bld) 0.6 % High 0.0 - 0.5 % [facility] Interpretation and review of laboratory results Abnormal [facility] LYMPHOCYTES ABSOLUTE AUTO 1.8 [facility] Lymphocytes/100 WBC (Bld) 16.8 % Low 20.5 - 60.0 % [facility] MCH (RBC) [Entitic mass] 29.3 pg 26.7 - 34.0 pg [facility] MCHC (RBC) [Mass/Vol] 33.3 g/dL 29.9 - 35.2 g/dL [facility] MCV (RBC) [Entitic vol] 88 fL 81.0 - 99.0 fL [facility] MONOCYTES ABSOLUTE AUTO 0.8 [facility] Monocytes/100 WBC (Bld) 7.7 % 1.7 - 12.0 % [facility] NEUTROPHILS ABSOLUTE AUTO 7.7 High [facility] Neutrophils/100 WBC (Bld) 73.8 % 43.0 - 75.0 % [facility] Platelet mean volume (Bld) [Entitic vol] 9.6 fL 9.5 - 13.5 fL [facility] EO # 0.1 [facility] PLT 157 [facility] RBC 3.34 Low [facility] WBC 10.4 [facility] AMNISUREon 09-13-2024 Interpretation and review of laboratory results Abnormal [facility] AMNISURE Positive Abnormal NEGATIVE [facility] Urinalysis macro (dipstick) panel (U)on 09-11-2024 Bilirubin, UA Negative Negative - 4(70) +++ mg/dL [facility] Blood, UA Negative Negative - 50 Mika/mcL [facility] Clarity, UA Clear [facility] Color, UA Yellow [facility] Glucose, UA Negative Negative - 1999(110) ++++ mg/dL [facility] Interpretation and review of laboratory results Normal [facility] Ketones, UA Negative Negative - 160(16) ++++ mg/dL [facility] Leukocytes, UA Negative Negative - 500+++ Meena/mcL [facility] Nitrite, UA Negative Negative - Positive [facility] pH, UA 6.5 5 - 9 [facility] Protein, UA Negative Negative - 2000(20) ++++ mg/dL [facility] Spec Grav, UA 1.02 1 - 1.03 [facility] Urobilinogen, UA 0.2 0.2 - 12 mg/dL [facility] Urinalysis macro (dipstick) panel (U)on 09-04-2024 Bilirubin, UA Negative Negative - 4(70) +++ mg/dL [facility] Blood, UA Negative Negative - 50 Mika/mcL [facility] Clarity, UA Clear [facility] Color, UA Yellow [facility] Glucose, UA Negative Negative - 1999(110) ++++ mg/dL [facility] Interpretation and review of laboratory results Normal [facility] Ketones, UA Negative Negative - 160(16) ++++ mg/dL [facility] Leukocytes, UA Negative Negative - 500+++ Meena/mcL [facility] Nitrite, UA Negative Negative - Positive [facility] pH, UA 7 5 - 9 [facility] Protein, UA Negative Negative - 1999(20) ++++ mg/dL [facility] Spec Grav, UA 1.01 1 - 1.03 [facility] Urobilinogen, UA 0.2 0.2 - 12 mg/dL [facility] Urinalysis macro (dipstick) panel (U)on 08-21-2024 Bilirubin, UA Negative Negative - 4(70) +++ mg/dL [facility] Blood, UA Negative Negative - 50 Mika/mcL [facility] Clarity, UA Clear [facility] Color, UA Yellow [facility] Glucose, UA Negative Negative - 1999(110) ++++ mg/dL [facility] Interpretation and review of laboratory results Normal [facility] Ketones, UA Negative Negative - 160(16) ++++ mg/dL [facility] Leukocytes, UA Trace Negative - 500+++ Meena/mcL [facility] Nitrite, UA Negative Negative - Positive [facility] pH, UA 7.5 5 - 9 [facility] Protein, UA Negative Negative - 1999(20) ++++ mg/dL [facility] Spec Grav, UA 1.02 1 - 1.03 [facility] Urobilinogen, UA 0.2 0.2 - 12 mg/dL [facility] US OB FOLLOW UP TRANSABDOMIN AL APPROACHon 08-07-2024 US OB FOLLOW UP TRANSABDOMINAL APPROACH EXAM: US OB FOLLOW UP TRANSABDOMINAL APPROACH [...] II, MD, PHD at 08-Aug-2024 08:23:33 AM [facility] Normal Not Available Comment on above: Order Comment: US OB SCAN FOR GROWTH Estimated Date of Delivery: 10/03/24 Gestational Age as of 07/10/2024: 27w6d Urinalysis macro (dipstick) panel (U)on 08-07-2024 Bilirubin, UA Negative Negative - 4(70) +++ mg/dL [facility] Blood, UA Negative Negative - 50 Mika/mcL [facility] Clarity, UA Clear [facility] Color, UA Yellow [facility] Glucose, UA Negative Negative - 1999(110) ++++ mg/dL [facility] Interpretation and review of laboratory results Normal [facility] Ketones, UA Negative Negative - 160(16) ++++ mg/dL [facility] Leukocytes, UA Positive Negative - 500+++ Meena/mcL [facility] Nitrite, UA Negative Negative - Positive [facility] pH, UA 8.5 5 - 9 [facility] Protein, UA Trace Negative - 2000(20) ++++ mg/dL [facility] Spec Grav, UA 1.015 1 - 1.03 [facility] Urobilinogen, UA 0.2 0.2 - 12 mg/dL [facility] Urinalysis macro (dipstick) panel (U)on 07-25-2024 Bilirubin, UA Negative Negative - 4(70) +++ mg/dL [facility] Blood, UA Negative Negative - 50 Mika/mcL [facility] Clarity, UA Clear [facility] Color, UA Yellow [facility] Glucose, UA Negative Negative - 1999(110) ++++ mg/dL [facility] Interpretation and review of laboratory results Normal [facility] Ketones, UA Negative Negative - 160(16) ++++ mg/dL [facility] Leukocytes, UA Negative Negative - 500+++ Meena/mcL [facility] Nitrite, UA Negative Negative - Positive [facility] pH, UA 6 5 - 9 [facility] Protein, UA Negative Negative - 1999(20) ++++ mg/dL [facility] Spec Grav, UA 1.03 1 - 1.03 [facility] Urobilinogen, UA 1.0 0.2 - 12 mg/dL [facility] Urinalysis macro (dipstick) panel (U)on 07-10-2024 Bilirubin, UA Negative Negative - 4(70) +++ mg/dL [facility] Blood, UA Negative Negative - 50 Mika/mcL [facility] Clarity, UA Clear [facility] Color, UA [place] [facility] Glucose, UA Negative Negative - 1999(110) ++++ mg/dL [facility] Interpretation and review of laboratory results Normal [facility] Ketones, UA Negative Negative - 160(16) ++++ mg/dL [facility] Leukocytes, UA Negative Negative - 500+++ Meena/mcL [facility] Nitrite, UA Negative Negative - Positive [facility] pH, UA 8.5 5 - 9 [facility] Protein, UA Negative Negative - 1999(20) ++++ mg/dL [facility] Spec Grav, UA 1.015 1 - 1.03 [facility] Urobilinogen, UA 0.2 0.2 - 12 mg/dL [facility] ALL CBC WITH AUTO DIFFon BASOPHILS ABSOLUTE AUTO 0 [facility] Basophils/100 WBC (Bld) 0.3 % 0.2 - 2.0 % [facility] Eosinophils/100 WBC (Bld) 1.1 % 0.9 - 7.0 % [facility] Erythrocyte distribution width (RBC) [Ratio] 12.3 % 11.0 - 15.0 % [facility] Hematocrit (Bld) [Volume fraction] 36.6 % 36.0 - 48.0 % [facility] Hemoglobin (Bld) [Mass/Vol] 12.8 g/dL 12.0 - 16.0 g/dL [facility] IMMATURE GRANULOCYTES ABS AUTO 0.03 [facility] Immature granulocytes/100 WBC (Bld) 0.3 % 0.0 - 0.5 % [facility] Interpretation and review of laboratory results Abnormal [facility] LYMPHOCYTES ABSOLUTE AUTO 1.5 [facility] Lymphocytes/100 WBC (Bld) 16.8 % Low 20.5 - 60.0 % [facility] MCH (RBC) [Entitic mass] 33.4 pg 26.7 - 34.0 pg [facility] MCHC (RBC) [Mass/Vol] 35 g/dL 29.9 - 35.2 g/dL [facility] MCV (RBC) [Entitic vol] 95.6 fL 81.0 - 99.0 fL [facility] MONOCYTES ABSOLUTE AUTO 0.6 [facility] Monocytes/100 WBC (Bld) 6.8 % 1.7 - 12.0 % [facility] NEUTROPHILS ABSOLUTE AUTO 6.7 High [facility] Neutrophils/100 WBC (Bld) 74.7 % 43.0 - 75.0 % [facility] Platelet mean volume (Bld) [Entitic vol] 9.7 fL 9.5 - 13.5 fL [facility] TBH EO # 0.1 [facility] TB PLT 182 [facility] RBC 3.83 Low [facility] WBC 9 [facility] GLUCOSE 1 HOURon 06-23-2024 Glucose [Mass/Vol] 87 mg/dL NINF - 13 0 mg/dL [facility] US OB LIMITED 1+ FETUSESon 0 06-14-2024 US OB LIMITED 1+ FETUSES EXAM: US OB LIMITED 1+ FETUSES HISTORY: [...] II, MD, PHD at 16-Jun-2024 06:46:29 PM [facility] Normal Not Available Comment on above: Order Comment: US OB INCOMPLETE ANATOMY W US OB TRANSVAGINAL Estimated Date of Delivery: 10/03/24 Gestational Age as of 05/17/2024: 20w1d Urinalysis macro (dipstick) panel (U)on 06-14-2024 Bilirubin, UA Negative Negative - 4(70) +++ mg/dL [facility] Blood, UA Negative Negative - 50 Mika/mcL [facility] Clarity, UA Clear [facility] Color, UA Yellow [facility] Glucose, UA Negative Negative - 1999(110) ++++ mg/dL [facility] Interpretation and review of laboratory results Normal [facility] Ketones, UA Negative Negative - 160(16) ++++ mg/dL [facility] Leukocytes, UA Negative Negative - 500+++ Meena/mcL [facility] Nitrite, UA Negative Negative - Positive [facility] pH, UA 7 5 - 9 [facility] Protein, UA Negative Negative - 1999(20) ++++ mg/dL [facility] Spec Grav, UA 1.02 1 - 1.03 [facility] Urobilinogen, UA 0.2 0.2 - 12 mg/dL [facility] Urinalysis macro (dipstick) panel (U)on 05-17-2024 Bilirubin, UA Negative Negative - 4(70) +++ mg/dL [facility] Blood, UA Negative Negative - 50 Mika/mcL [facility] Clarity, UA Clear [facility] Color, UA [place] [facility] Glucose, UA Negative Negative - 1999(110) ++++ mg/dL [facility] Interpretation and review of laboratory results Abnormal [facility] Ketones, UA Negative Negative - 160(16) ++++ mg/dL [facility] Leukocytes, UA Negative Negative - 500+++ Meena/mcL [facility] Nitrite, UA Negative Negative - Positive [facility] pH, UA 7 5 - 9 [facility] Protein, UA Trace Negative - 1999(20) ++++ mg/dL [facility] Spec Grav, UA 1.02 1 - 1.03 [facility] Urobilinogen, UA 0.2 0.2 - 12 mg/dL [facility] US OB 14+ WEEKS ANATOMY SCAN on 04-18-2024 US OB 14+ WEEKS ANATOMY SCAN EXAM: US OB 14+ WEEKS ANATOMY SCAN HISTORY: anatomy. COMPARISON: Ob ultrasound 03/01/2024. [...] II, MD, PHD at 18-May-2024 08:29:54 PM [facility] Normal Not Available Comment on above: Order Comment: US OB ANATOMY SINGLE W US OB CERVICAL LENGTH Estimated Date of Delivery: 10/03/24 Gestational Age as of 04/18/2024: 16w0d Urinalysis macro (dipstick) panel (U)on 04-18-2024 Bilirubin, UA Negative Negative - 4(70) +++ mg/dL [facility] Blood, UA Negative Negative - 50 Mika/mcL [facility] Clarity, UA Clear [facility] Color, UA Yellow [facility] Glucose, UA Negative Negative - 1999(110) ++++ mg/dL [facility] Interpretation and review of laboratory results Normal [facility] Ketones, UA Negative Negative - 160(16) ++++ mg/dL [facility] Leukocytes, UA Negative Negative - 500+++ Meena/mcL [facility] Nitrite, UA Negative Negative - Positive [facility] pH, UA 5.5 5 - 9 [facility] Protein, UA Negative Negative - 1999(20) ++++ mg/dL [facility] Spec Grav, UA 1.03 1 - 1.03 [facility] Urobilinogen, UA 0.2 0.2 - 12 mg/dL [facility] Urinalysis macro (dipstick) panel (U)on 03-21-2024 Bilirubin, UA Negative Negative - 4(70) +++ mg/dL [facility] Blood, UA Negative Negative - 50 Mika/mcL [facility] Clarity, UA Clear [facility] Color, UA Yellow [facility] Glucose, UA Negative Negative - 1999(110) ++++ mg/dL [facility] Interpretation and review of laboratory results Normal [facility] Ketones, UA Negative Negative - 160(16) ++++ mg/dL [facility] Leukocytes, UA Negative Negative - 500+++ Meena/mcL [facility] Nitrite, UA Negative Negative - Positive [facility] pH, UA 6 5 - 9 [facility] Protein, UA Negative Negative - 1999(20) ++++ mg/dL [facility] Spec Grav, UA 1.025 1 - 1.03 [facility] Urobilinogen, UA 0.2 0.2 - 12 mg/dL [facility] BOX TESTon 03-09-2024 BOX TEST SENT OUT [facility] BOX1 [facility] BOX2 03/09/24 [facility] ( test) Ql (U)o n 03-01-2024 Interpretation and review of laboratory results Abnormal [facility] Preg Test, Ur Positive Negative [facility] OB TRANSVAGINALon 025 US OB TRANSVAGINAL TITLE OF EXAM: US OB TRANSVAGINAL REASON FOR EXAM: [id number]&NASEEM&R ADIOLOGY GR TECHNIQUE: Grayscale, color, and M-mode Doppler [...] x 4.2 cm (9 weeks, 2 days). [place] rump length is 2.1-2.2 cm (8 weeks, [...] signed and approved by the interpreting radiologist. Normal Not Available Urinalysis macro (dipstick) panel (U)on 03-01-2024 Bilirubin, UA Negative Negative - 4(70) +++ mg/dL [facility] Blood, UA Negative Negative - 50 Mika/mcL [facility] Clarity, UA Clear [facility] Color, UA Yellow [facility] Glucose, UA Negative Negative - 2000(110) ++++ mg/dL [facility] Interpretation and review of laboratory results Normal [facility] Ketones, UA Negative Negative - 160(16) ++++ mg/dL [facility] Leukocytes, UA Negative Negative - 500+++ Meena/mcL [facility] Nitrite, UA Negative Negative - Positive [facility] pH, UA 6 5 - 9 [facility] Protein, UA Negative Negative - 2000(20) ++++ mg/dL [facility] Spec Grav, UA 1.02 1 - 1.03 [facility] Urobilinogen, UA 1.0 0.2 - 12 mg/dL [facility] Cytology Cervical or vaginal smear or scraping studyon 06-01-2023 [facility] PAP ACOG PANEL 2: 21 to 29on 06-03-2022 . . [facility] Comment on above: Performed By: #### [id number] #### [facility] [address] [place] [address] Dr. Brad Hays Age Gdln ACOG Testing - [facility] Comment on above: Performed By: #### [id number] #### [facility] [address] [place] [address] Dr. Brad Hays DIAGNOSIS: Comment [facility] Comment on above: Result Comment: NEGA TIVE FOR INTRAEPITHELIAL LESION OR MALIGNANCY. Performed By: #### [id number] #### [facility] [address] [place] [address] Dr. Brad Hays Methodology: Comment [facility] Comment on above: Result Comment: This liquid based ThinPrep(R) pap test was screened with the use of an image guided system. Performed By: #### [id number] #### [facility] [address] [place] [address] Dr. Brad Hays Note: Comment [facility] Comment on above: Result Comment: The Pap smear is a screening test designed to aid in the detection of premalignant and malignant conditions of the uterine cervix. It is not a diagnostic procedure and should not be used as the sole means of detecting cervical cancer. Both false-positive and false-negative reports do occur. . Performed By: #### [id number] #### [facility] [address] [place] [address] Dr. Brad Hays Performed by: Comment [facility] Comment on above: Result Comment: Jorje Maxwell, [employer] (ASCP) Performed By: #### [id number] #### [facility] [address] [place] [address] Dr. Brad Hays Reflex Criteria: Comment Normal [facility] Comment on above: Result Comment: The HPV DNA reflex criteria were not met with this specimen result therefore, no HPV testing was performed. . Performed By: #### [id number] #### [facility] [address] [place] [address] Dr. Brad Hays Specimen adequacy: Comment Normal [facility] Comment on above: Result Comment: Sati sfactory for evaluation. Endocervical and/or squamous metaplastic cells (endocervical component) are present. Performed By: #### [id number] #### [facility] [address] [place] [address] Dr. Brad Hays CBC AUTO DIFFon 11-26-2021 BASO # 0.0 103/ul Normal 0.0-0.1 [facility] Comment on above: Performed By: #### C BC #### [facility] [address] [place] [address] Dr. Brad Hays Basophils/100 WBC (Bld) 0.2 % Normal 0.2-2.0 [facility] Comment on above: Performed By: #### C BC #### [facility] [address] [place] [address] Dr. Brad Hays EO # 0.1 103/ul Normal 0.0-0.7 [facility] Comment on above: Performed By: #### C BC #### [facility] [address] [place] [address] Dr. Brad Hays Eosinophils/100 WBC (Bld) 0.4 % Critically low 0.9-7.0 [facility] Comment on above: Performed By: #### C BC #### [facility] [address] [place] [address] Dr. Brad Hays Erythrocyte distribution width (RBC) [Ratio] 13.2 % Normal 11.0-15.0 [facility] Comment on above: Performed By: #### C BC #### [facility] [address] [place] [address] Dr. Brad Hays Hematocrit (Bld) [Volume fraction] 32.9 % Critically low 36.0-48.0 [facility] Comment on above: Performed By: #### C BC #### [facility] [address] [place] [address] Dr. Brad Hays Hemoglobin (Bld) [Mass/Vol] 10.5 g/dL Critically low 12.0-16.0 [facility] Comment on above: Performed By: #### C BC #### [facility] [address] [place] [address] Dr. Brad Hays IG # 0.05 10e3/ul Critically high 0.00-0.03 [facility] Comment on above: Performed By: #### C BC #### [facility] [address] [place] [address] Dr. Brad Hays IG % 0.4 % Normal 0.0-0.5 [facility] Comment on above: Performed By: #### C BC #### [facility] [address] [place] [address] Dr. Brad Hays LYMPH # 2.2 103/ul Normal 1.2-3.8 [facility] Comment on above: Performed By: #### C BC #### [facility] [address] [place] [address] Dr. Brad Hays Lymphocytes/100 WBC (Bld) 16.3 % Critically low 20.5-60.0 [facility] Comment on above: Performed By: #### C BC #### [facility] [address] [place] [address] Dr. Brad Hays MANUAL DIFF REQ NO Normal [facility] Comment on above: Performed By: #### C BC #### [facility] [address] [place] [address] Dr. Brad Hays MCH (RBC) [Entitic mass] 27.8 pg Normal 26.7-34.0 [facility] Comment on above: Performed By: #### C BC #### [facility] [address] [place] [address] Dr. Brad Hays MCHC (RBC) [Mass/Vol] 31.9 g/dL Normal 29.9-35.2 [facility] Comment on above: Performed By: #### C BC #### [facility] [address] [place] [address] Dr. Brad Hays MCV (RBC) [Entitic vol] 87.0 fL Normal 81.0-99.0 [facility] Comment on above: Performed By: #### C BC #### [facility] [address] [address] [address] Brad Hays MONO # 0.8 103/ul Normal 0.3-0.[address] [facility] Comment on above: Performed By: #### C BC #### [facility] [address] [place] [address] Dr. Brad Hays Monocytes/100 WBC (Bld) 6.0 % Normal 1.7-12.0 [facility] Comment on above: Performed By: #### C BC #### [facility] [address] [place] [address] Dr. Brad Hays NEUT # 10.3 103/ul Critically high 1.4-6.5 [facility] Comment on above: Performed By: #### C BC #### [facility] [address] [place] [address] Dr. Brad Hays Neutrophils/100 WBC (Bld) 76.7 % Critically high 43.0-75.0 [facility] Comment on above: Performed By: #### C BC #### [facility] [address] [place] [address] Dr. Brad Hays Platelet mean volume (Bld) [Entitic vol] 10.1 fL Normal 9.5-13.[address] [facility] Comment on above: Performed By: #### C BC #### [facility] [address] [place] [address] Dr. Brad Hays PLT 175 103/ul Normal 150-[address] [facility] Comment on above: Performed By: #### C BC #### [facility] [address] [place] [address] Dr. Brad Hays RBC 3.78 106/ul Critically low 4.20-5.40 [facility] Comment on above: Performed By: #### C BC #### [facility] [address] [place] [address] Dr. Brad Hays WBC 13.5 103/ul Critically high 4.0-11.0 [facility] Comment on above: Performed By: #### C BC #### [facility] [address] [place] [address] Dr. Brad Hays CBC AUTO DIFFon 11-25-2021 BASO # 0.0 103/ul Normal 0.0-0.1 [facility] Comment on above: Performed By: #### C BC #### [facility] [address] [place] [address] Dr. Brad Hays Basophils/100 WBC (Bld) 0.3 % Normal 0.2-2.0 [facility] Comment on above: Performed By: #### C BC #### [facility] [address] [place] [address] Dr. Brad Hays EO # 0.1 103/ul Normal 0.0-0.7 [facility] Comment on above: Performed By: #### C BC #### [facility] [address] [place] [address] Dr. Brad Hays Eosinophils/100 WBC (Bld) 0.7 % Critically low 0.9-7.0 [facility] Comment on above: Performed By: #### C BC #### [facility] [address] [place] [address] Dr. Brad Hays Erythrocyte distribution width (RBC) [Ratio] 13.3 % Normal 11.0-15.0 [facility] Comment on above: Performed By: #### C BC #### [facility] [address] [place] [address] Dr. Brad Hays Hematocrit (Bld) [Volume fraction] 36.6 % Normal 36.0-48.0 [facility] Comment on above: Performed By: #### C BC #### [facility] [address] [place] [address] Dr. Brad Hays Hemoglobin (Bld) [Mass/Vol] 12.2 g/dL Normal 12.0-16.0 [facility] Comment on above: Performed By: #### C BC #### [facility] [address] [place] [address] Dr. Brad Hays IG # 0.05 10e3/ul Critically high 0.00-0.03 [facility] Comment on above: Performed By: #### C BC #### [facility] [address] [address] [address] Brad Hays IG % 0.4 % Normal 0.0-0.5 [facility] Comment on above: Performed By: #### C BC #### [facility] [address] [place] [address] Dr. Brad Hays LYMPH # 2.3 103/ul Normal 1.2-3.8 [facility] Comment on above: Performed By: #### C BC #### [facility] [address] [place] [address] Dr. Brad Hays Lymphocytes/100 WBC (Bld) 18.2 % Critically low 20.5-60.0 [facility] Comment on above: Performed By: #### C BC #### [facility] [address] [place] [address] Dr. Brad Hays MANUAL DIFF REQ NO Normal [facility] Comment on above: Performed By: #### C BC #### [facility] [address] [place] [address] Dr. Brad Hays MCH (RBC) [Entitic mass] 28.6 pg Normal 26.7-34.0 [facility] Comment on above: Performed By: #### C BC #### [facility] [address] [place] [address] Dr. Brad Hays MCHC (RBC) [Mass/Vol] 33.3 g/dL Normal 29.9-35.2 [facility] Comment on above: Performed By: #### C BC #### [facility] [address] [place] [address] Dr. Brad Hays MCV (RBC) [Entitic vol] 85.9 fL Normal 81.0-99.0 [facility] Comment on above: Performed By: #### C BC #### [facility] [address] [place] [address] Dr. Brad Hays MONO # 1.0 103/ul Critically high 0.3-0.8 [facility] Comment on above: Performed By: #### C BC #### [facility] [address] [place] [address] Dr. Brad Hays Monocytes/100 WBC (Bld) 7.7 % Normal 1.7-12.0 [facility] Comment on above: Performed By: #### C BC #### [facility] [address] [place] [address] Dr. Brad Hays NEUT # 9.3 103/ul Critically high 1.4-6.5 [facility] Comment on above: Performed By: #### C BC #### [facility] [address] [place] [address] Dr. Brad Hays Neutrophils/100 WBC (Bld) 72.7 % Normal 43.0-75.0 [facility] Comment on above: Performed By: #### C BC #### [facility] [address] [place] [address] Dr. Brad Hays Platelet mean volume (Bld) [Entitic vol] 10.3 fL Normal 9.5-13.5 [facility] Comment on above: Performed By: #### C BC #### [facility] [address] [place] [address] Dr. Brad Hays PLT 221 103/ul Normal 150-[address] [facility] Comment on above: Performed By: #### C BC #### [facility] [address] [place] [address] Dr. Brad Hays RBC 4.26 106/ul Normal 4.20-5.[address] [facility] Comment on above: Performed By: #### C BC #### [facility] [address] [place] [address] Dr. Brad Hays WBC 12.8 103/ul Critically high 4.0-11.0 [facility] Comment on above: Performed By: #### C BC #### [facility] [address] [place] [address] Dr. Brad Hays Covid-19 PCR ([facility])on 10-30 SARS-CoV-2 (COVID-19) RNA DHEERAJ+probe Ql (Unsp spec) Not detected Normal NOT DETECTED [facility] Comment on above: Result Comment: When diagnostic testing is negative, the possibility of a false negative should be considered in the context of a patient's recent exposures and the presence of clinical signs and symptoms consistent with SARS-CoV-2. This test is not yet approved or cleared by the [place] FDA. When there are no FDA-approved or cleared tests available, and other criteria are met, FDA can make tests available under an emergency access mechanism called an Emergency Use Authorization (EUA). The EUA for this test is supported by the [employer] Apprentice of Health and Human Service's declaration that circumstances exist to justify the emergency use of in vitro diagnostics for the detection and/or diagnosis of the virus that causes COVID-19. This EUA will remain in effect for the duration of the COVID-19 declaration justifying emergency of IVDs, unless it is terminated or revoked by the FDA (after which the test may no longer be used). Performed By: #### C VDTBH #### [facility] [address] [place] [address] Dr. Brad Hays DRUG SCREEN RAPID (URINE)on 11-25-2021 AMP Negative Normal NEGATIVE [facility] Comment on above: Performed By: #### D RUGRPD #### [facility] [address] [place] [address] Dr. Brad Hays BAR Negative Normal NEGATIVE [facility] Comment on above: Performed By: #### D RUGRPD #### [facility] [address] [place] [address] Dr. Brad Hays BUP Negative Normal NEGATIVE [facility] Comment on above: Performed By: #### D RUGRPD #### [facility] [address] [place] [address] Dr. Brad Hays BZO Negative Normal NEGATIVE [facility] Comment on above: Performed By: #### D RUGRPD #### [facility] [address] [place] [address] Dr. Brad Hays NANCY Negative Normal NEGATIVE [facility] Comment on above: Performed By: #### D RUGRPD #### [facility] [address] [place] [address] Dr. Brad Hays CUT-OFFS SEE BELOW Normal [facility] Comment on above: Result Comment: AMP (Amphetamine): 500ng/mL, BAR (Barbituates): 200 ng/mL, BZO (Benzodiazepines): 150 ng/mL, BUP (Buprenorphine): 10 ng/mL, NANCY (Cocaine): 150 ng/mL, mAMP (Methamphetamine): 500 ng/mL, MTD (Methadone): 200 ng/mL, OPI (Opiates): 100 ng/mL, OXY (Oxycodone): 100 ng/mL, PCP (Phencyclidine): 25 ng/mL, PPX (Propoxyphene): 300 ng/mL, THC (Cannabinoids): 50 ng/mL, TCA (Trycyclic Antidepressants): 300 ng/mL Performed By: #### D RUGRPD #### [facility] [address] [place] [address] Dr. Brad Hays DRUG CUT HEADER DRUG CLASS TEST SYST EM CUT-OFF CONCENTRATIONS ARE FOLLOWS: Normal [facility] Comment on above: Performed By: #### D RUGRPD #### [facility] [address] [place] [address] Dr. Brad Hays mAMP Negative Normal NEGATIVE [facility] Comment on above: Performed By: #### D RUGRPD #### [facility] [address] [place] [address] Dr. Brad Hays MTD Negative Normal NEGATIVE [facility] Comment on above: Performed By: #### D RUGRPD #### [facility] [address] [place] [address] Dr. Brad Hays OPI Negative Normal NEGATIVE [facility] Comment on above: Performed By: #### D RUGRPD #### [facility] [address] [place] [address] Dr. Brad Hays OXY Negative Normal NEGATIVE [facility] Comment on above: Performed By: #### D RUGRPD #### [facility] [address] [address] [address] Brad Hays PCP Negative Normal NEGATIVE [facility] Comment on above: Performed By: #### D RUGRPD #### [facility] [address] [address] [address] Brad Hays PPX Negative Normal NEGATIVE [facility] Comment on above: Performed By: #### D RUGRPD #### [facility] [address] [address] [address] Brad Hays TCA Negative Normal NEGATIVE [facility] Comment on above: Performed By: #### D RUGRPD #### [facility] [address] [address] [address] Brad Hays THC Negative Normal NEGATIVE [facility] Comment on above: Performed By: #### D RUGRPD #### [facility] [address] [place] [address] Dr. Brad Hays TYPE AND SCREENon 11-25-2021 TYPE AND SCREEN Negative Normal [facility] Comment on above: Performed By: #### T NS #### [facility] [address] [place] [address] Dr. Brad Hays US PREG AMNIOTIC FLUID VOLUM Sarbjit 11-13-2021 US PREG AMNIOTIC FLUID VOLUME EXAMINATION: US PREG AMNIOTIC FLUID VOLUME HISTORY: Noninflammatory disorder of the vagina COMPARISON: 08/08/2021 TECHNIQUE: Limited sonographic examination for amniotic fluid volume FINDINGS: position: Cephalic presentation, longitudinal lie Amniotic fluid volume: 11.6 cm, normal range 6.5 to 27.1 cm Largest fluid pocket: 3.8 cm Heart rate: 121 bpm Gestational age: 37 weeks 5 days IMPRESSION: Normal amniotic fluid volume Electronically authenticated by: WALLY SOLIMAN Date: 2021-11-13 16:04 Normal [facility] GROUP B STREP CULTUREon S. agalactiae Ag Ql (Unsp spec) Culture Observations: NEGATIVE FOR GROUP B STREPTOCOCCUS. Normal [facility] Comment on above: Performed By: #### G BSCX #### [facility] [address] [place] [address] Dr. Brad Hays US PREG INCOMPLETE ANATOMYon 08-10-2021 US PREG INCOMPLETE ANATOMY EXAMINATION: US PREG INCOMPLETE ANATOMY HISTORY: screening COMPARISON: Ultrasound anatomy 07/13/2021 FINDINGS: Presentation: Cephalic Heart rate: 136 bpm Amniotic fluid: Subjectively normal Anatomy: Adequate visualization of spine without abnormality. IMPRESSION: 1. Single live intrauterine . 2. No appreciable abnormality of the spine. Electronically authenticated by: SOY PINA Date: 2021-08-10 07:15 Normal [facility] US PREG ANATOMY SINGLEon US PREG ANATOMY SINGLE EXAMINATION: US PREG ANATOMY SINGLE HISTORY: screening COMPARISON: No relevant comparison available. TECHNIQUE: Transabdominal sonographic examination was performed for obstetrical and evaluation. FINDINGS: Number: 1 Heart Rate: 135.0 bpm H.B. /min Amniotic Fluid Volume: Subjectively normal Placental Location: Anterior with lower margin 5.8 cm from os. Cervix Length: 3.7 cm; closed. ANATOMY: Normal Structures -cerebellum, choroid plexus, cisterna magna, lateral cerebral ventricles, orbits, midline falx, hard palate, four-chamber heart, RVOT, LVOT, stomach, kidneys, bladder, umbilical cord insertion into abdomen, three-vessel cord, cervical spine, thoracic spine, lumbar spine, sacral spine, right upper extremity, left upper extremity, right lower extremity, left lower extremity. SUBOPTIMALLY SEEN: Spine. ABNORMALITIES: None BIOMETRY: BPD: 4.8 cm 20 weeks 4 days HC: 17.9 cm 20 weeks 2 days AC: 15.0 cm 20 weeks 2 days FL: 3.3 cm 20 weeks 3 days EFW:348.4 grams; 49% FL/AC: 22.3 FL/BPD: 69.0 HC/AC: 1.2 GESTATIONAL AGE: Age by EDC: 20 weeks 2 days KIMBERLYN by EDC: 11/28/2021 Age by current US: 20 weeks 3 days KIMBERLYN by current US: 11/27/2021 IMPRESSION: 1. Single live intrauterine with growth detailed above. 2. Suboptimal visualization of the spine due to baby lying on its back throughout study. No appreciable abnormality. Electronically authenticated by: SOY PINA Date: 2021-07-13 16:04 Normal [facility] MRI Spine Cervical w/o Contr gume 12-20-2019 MRI Spine Cervical w/o Contrast EXAM: MRI Spine Cervical w/o Contrast HISTORY: Neck pain for 4 months with no specific injury. Headaches. COMPARISON: None. TECHNIQUE: Multiplanar and multisequence imaging of the cervical spine was performed without contrast. FINDINGS: Motion artifact degrades evaluation on this study. There is straightening of the cervical lordosis. No acute fracture or spondylolisthesis is evident. There is disc desiccation throughout the cervical spine. 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 This does not meet criteria for a Chiari I malformation. No focal cord signal abnormality is visualized in the cervical cord given motion artifact degrading evaluation. No enlarged cervical lymph nodes are evident. The visualized thyroid gland demonstrates no focal abnormality. C2-C3: There is mild uncovertebral spurring and mild left-sided facet arthropathy. There is no central or foraminal stenosis. C3-C4: There are bilateral uncovertebral/foramina l disc-osteophyte complexes measuring 2 to 3 mm in AP dimension resulting in mild to moderate bilateral foraminal narrowing without central stenosis. C4-C5: There is a 3 mm broad-based disc protrusion and mild uncovertebral spurring resulting in minimal foraminal narrowing without central stenosis. C5-C6: There is a minimal disc bulge without central or foraminal stenosis. C6-C7: There is a 2 mm central disc protrusion and mild uncovertebral spurring without central or foraminal stenosis. IMPRESSION: 1. Bilateral uncovertebral/foramina l disc-osteophyte complexes at C3-C4 result in mild to moderate bilateral foraminal narrowing without central stenosis. 2. There is also a broad-based disc protrusion and uncovertebral spurring at C4-C5 resulting in minimal foraminal narrowing without central stenosis. 3. No fracture or spondylolisthesis. Final Dictated by: Pa Lara MD Dictated DT/TM: 12/20/2019 8:30 pm Signed by: Pa Lara MD Signed (Electronic Signature): 12/20/2019 8:40 pm Transcribed DT/TM: 12/20/2019 8:37 (If Report Is Signed, Electronically Signed in Other Vendor System) Normal [facility] Chlamydia/GC DNA, TPon 05-10 Chlamydia Probe, TP Negative Normal NEG [facility] Comment on above: Result Comment: CHLA MYDIA TRACHOMATIS DNA not detected by nucleic acid amplification. This test is intended for medical purposes only and is not valid for the evaluation of suspected sexual abuse or for other forensic purposes. In certain contexts, culture may be required to meet applicable laws and regulations for diagnosis of C. trachomatis and N. gonorrhoeae infections. Per 2014 CDC recommendations, this test does not include confirmation of positive results by an alternative nucleic acid target. Performed By: #### C YTCGP #### [facility] [address] [place] [id number] Barrel Raiser: Hema Paredes MD Gonorrhea Probe, TP Negative Normal NEG [facility] Comment on above: Result Comment: NEIS SERIA GONORRHOEAE DNA not detected by nucleic acid amplification. This test is intended for medical purposes only and is not valid for the evaluation of suspected sexual abuse or for other forensic purposes. In certain contexts, culture may be required to meet applicable laws and regulations for diagnosis of C. trachomatis and N. gonorrhoeae infections. Per 2014 CDC recommendations, this test does not include confirmation of positive results by an alternative nucleic acid target. Performed By: #### C YTCGP #### [facility] [address] [address] Barrel Raiser: Hema Paredes MD Cytologyon 05-08-2019 Cytology (NOTE) INTERPRETATION Cervical material, (ThinPrep vial, Imaging-assisted review): Specimen Adequacy: Satisfactory for evaluation. - Endocervical/transform ation zone component present. Descriptive Diagnosis: Negative for intraepithelial lesion or malignancy. 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 High risk HPV DNA testing is requested if the diagnosis is abnormal GYNECOLOGIC CYTOLOGY REPORT Patient Name: DOUGLAS TUTTLE [facility] Rec: [id number] Path Number: [id number] [employer] [facility] ANATOMIC PATHOLOGY [address] [place] [id number] [facility] Comment on above: Performed By: #### P PPVP #### [facility] [employer] [address] [place], [place] [id number] Barrel Raiser: Hema Paredes MD Vital Signs Date Time Vital Sign Value Performing Clinician Jaimie arredondo 09-11-2024 09:56-0400 Body mass index (BMI) [Ratio] 25.4 kg/m2 Ramses Sakshi DO Work Phone: [facility] 09-11-2024 09:56-0400 Body weight 67.13 kg Ramses Sakshi DO Work Phone: [facility] 09-11-2024 09:56-0400 Diastolic blood pressure 62 mm[Hg] Ramses Sakshi DO Work Phone: [facility] 09-11-2024 09:56-0400 Systolic blood pressure 110 mm[Hg] Ramses Sakshi DO Work Phone: [facility] 09-04-2024 10:03-0400 Body mass index (BMI) [Ratio] 25.06 kg/m2 Ramses Sakshi DO Work Phone: [facility] 09-04-2024 10:03-0400 Body weight 66.22 kg Ramses Sakshi DO Work Phone: [facility] 09-04-2024 10:03-0400 Diastolic blood pressure 70 mm[Hg] Ramses Sakshi DO Work Phone: [facility] 09-04-2024 10:03-0400 Systolic blood pressure 112 mm[Hg] Ramses Sakshi DO Work Phone: [facility] 08-21-2024 10:18-0400 Body mass index (BMI) [Ratio] 24.72 kg/m2 Ramses Sakshi DO Work Phone: [facility] 08-21-2024 10:18-0400 Body weight 65.32 kg Ramses Sakshi DO Work Phone: [facility] 08-21-2024 10:18-0400 Diastolic blood pressure 62 mm[Hg] Ramses Sakshi DO Work Phone: [facility] 08-21-2024 10:18-0400 Systolic blood pressure 118 mm[Hg] Ramses Sakshi DO Work Phone: [facility] 08-07-2024 10:47-0400 Body mass index (BMI) [Ratio] 24.2 kg/m2 Diana Samuel PA Work Phone: [facility] 08-07-2024 10:47-0400 Body weight 63.96 kg Diana Mcmulleney PA Work Phone: [facility] 08-07-2024 10:47-0400 Diastolic blood pressure 70 mm[Hg] Diana Samuel PA Work Phone: [facility] 08-07-2024 10:47-0400 Systolic blood pressure 118 mm[Hg] Diana Samuel PA Work Phone: [facility] 07-25-2024 13:07-0400 Body mass index (BMI) [Ratio] 24.1 kg/m2 Ramses Sakshi DO Work Phone: [facility] 07-25-2024 13:07-0400 Body weight 63.69 kg Ramses Sakshi DO Work Phone: [facility] 07-25-2024 13:07-0400 Diastolic blood pressure 60 mm[Hg] Ramses Sakshi DO Work Phone: [facility] 07-25-2024 13:07-0400 Systolic blood pressure 118 mm[Hg] Ramses Sakshi DO Work Phone: [facility] 07-10-2024 09:30-0400 Body height 162.6 cm Ramses Sakshi DO Work Phone: [facility] 07-10-2024 09:25-0400 Body mass index (BMI) [Ratio] 23.86 kg/m2 Ramses Sakshi DO Work Phone: [facility] 07-10-2024 09:25-0400 Body weight 63.05 kg Ramses Sakshi DO Work Phone: [facility] 07-10-2024 09:25-0400 Diastolic blood pressure 62 mm[Hg] Ramses Sakshi DO Work Phone: [facility] 07-10-2024 09:25-0400 Systolic blood pressure 102 mm[Hg] Ramses Sakshi DO Work Phone: [facility] 06-14-2024 08:28-0400 Body weight 60.78 kg Ramses Sakshi DO Work Phone: [facility] 06-14-2024 08:28-0400 Diastolic blood pressure 66 mm[Hg] Ramses Sakshi DO Work Phone: [facility] 06-14-2024 08:28-0400 Systolic blood pressure 98 mm[Hg] Ramses Sakshi DO Work Phone: [facility] 05-17-2024 09:34-0400 Body weight 58.7 kg Ramses Sakshi DO Work Phone: [facility] 05-17-2024 09:34-0400 Diastolic blood pressure 58 mm[Hg] Ramses Sakshi DO Work Phone: [facility] 05-17-2024 09:34-0400 Systolic blood pressure 100 mm[Hg] Ramses Sakshi DO Work Phone: [facility] 04-18-2024 11:33-0500 Body weight 57.06 kg Ramses Sakshi DO Work Phone: [facility] 04-18-2024 11:33-0500 Diastolic blood pressure 76 mm[Hg] Ramses Sakshi DO Work Phone: [facility] 04-18-2024 11:33-0500 Systolic blood pressure 104 mm[Hg] Ramses Sakshi DO Work Phone: [facility] 03-21-2024 11:34-0500 Body weight 55.79 kg Ramses Sakshi DO Work Phone: [facility] 03-21-2024 11:34-0500 Diastolic blood pressure 72 mm[Hg] Ramses Sakshi DO Work Phone: [facility] 03-21-2024 11:34-0500 Systolic blood pressure 116 mm[Hg] Ramses Sakshi DO Work Phone: [facility] 03-01-2024 09:30-0500 Body weight 54.34 kg [facility] 11-30-2023 10:32-0400 Body height 163 cm Pa Dasilva MD Work Phone: [facility] 11-30-2023 10:32-0400 Body mass index (BMI) [Ratio] 19.97 kg/m2 Pa Dasilva MD Work Phone: [facility] 11-30-2023 10:32-0400 Body weight 53.07 kg Pa Dasilva MD Work Phone: [facility] 11-30-2023 10:32-0400 Diastolic blood pressure 74 mm[Hg] Pa Dasilva MD Work Phone: [facility] 11-30-2023 10:32-0400 Heart rate 92 /min Pa Dasilva MD Work Phone: [facility] 11-30-2023 10:32-0400 Systolic blood pressure 110 mm[Hg] Pa Dasilva MD Work Phone: [facility] 11-09-2023 15:27-0400 Body weight 52.62 kg Ramess Sakshi DO Work Phone: [facility] Encounters Encounter Date Encounter Type Care Provider Facility Start: 09-15-2024 End: 09-17-2024 Clinisync Result Encounter Ramses Sakshi DO Work Phone: [facility] Unsolicited Start: 09-15-2024 End: 09-17-2024 Clinisync Result Encounter Ramses Sakshi DO Work Phone: [facility] Unsolicited Start: 09-13-2024 End: 09-14-2024 Clinisync Result Encounter Ramses Sakshi DO Work Phone: [facility] Unsolicited Start: 09-13-2024 End: 09-14-2024 Clinisync Result Encounter Ramses Sakshi DO Work Phone: [facility] Unsolicited Start: 09-11-2024 End: 09-11-2024 Bamboo flowsheet Ramses Sakshi DO Work Phone: [facility] Start: 09-11-2024 End: 09-11-2024 Bamboo flowsheet Ramses Sakshi DO Work Phone: [facility] Start: 09-11-2024 End: 09-11-2024 ambulatory RAMSES SAKSHI Not Available Start: 09-11-2024 End: 09-11-2024 flow sheet Ramses Sakshi DO Work Phone: [facility] Comment on above: Third trimester preg benny ([facility]); 36 weeks gestation of ([facility] Start: 09-04-2024 End: 09-04-2024 Bamboo flowsheet Ramses Sakshi DO Work Phone: [facility] Start: 09-04-2024 End: 09-04-2024 Bamboo flowsheet Ramses Sakshi DO Work Phone: [facility] Start: 09-04-2024 End: 09-04-2024 ambulatory RAMSES SAKSHI Not Available Start: 09-04-2024 End: 09-04-2024 flow sheet Ramses Sakshi DO Work Phone: [facility] Comment on above: Third trimester preg benny ([facility]); 35 weeks gestation of ([facility]); Heartburn during in third trimester ([facility]) Start: 08-21-2024 End: 08-21-2024 Bamboo flowsheet Ramses Sakshi DO Work Phone: [facility] Start: 08-21-2024 End: 08-21-2024 Bamboo flowsheet Ramses Sakshi DO Work Phone: [facility] Start: 08-21-2024 End: 08-21-2024 ambulatory RAMSES SAKSHI Not Available Start: 08-21-2024 End: 08-21-2024 flow sheet Ramses Sakshi DO Work Phone: [facility] Comment on above: Third trimester preg benny ([facility]); 34 weeks gestation of ([facility]) Start: 08-07-2024 End: 08-07-2024 flow sheet Diana Samuel PA Work Phone: [facility] Comment on above: Third trimester preg benny; 31 weeks gestation of Start: 08-07-2024 End: 08-07-2024 ambulatory DIANA SAMUEL Not Available Start: 07-25-2024 End: 07-25-2024 Bamboo flowsheet Ramses Sakshi DO Work Phone: [facility] Start: 07-25-2024 End: 07-25-2024 Bamboo flowsheet Ramses Sakshi DO Work Phone: [facility] Start: 07-25-2024 End: 07-25-2024 flow sheet Ramses Sakshi DO Work Phone: [facility] Comment on above: 30 weeks gestation o f ; Third trimester Start: 07-25-2024 End: 07-25-2024 ambulatory RAMSES SAKSHI Not Available Start: 07-10-2024 End: 07-10-2024 Bamboo flowsheet Ramses Sakshi DO Work Phone: [facility] Start: 07-10-2024 End: 07-10-2024 Bamboo flowsheet Ramses Sakshi DO Work Phone: [facility] Start: 07-10-2024 End: 07-10-2024 flow sheet Ramses Sakshi DO Work Phone: [facility] Comment on above: Second trimester pre gnancy; 27 weeks gestation of ; size inconsistent with dates Start: 07-10-2024 End: 07-10-2024 ambulatory RAMSES SAKSHI Not Available Start: 06-23-2024 End: 06-25-2024 Clinisync Result Encounter Ramses Sakshi DO Work Phone: [facility] Unsolicited Start: 06-23-2024 End: 06-25-2024 Clinisync Result Encounter Ramses Sakshi DO Work Phone: [facility] Unsolicited Start: 06-14-2024 End: 06-14-2024 flow sheet Ramses Sakshi DO Work Phone: [facility] Comment on above: Second trimester pre gnancy; 24 weeks gestation of Start: 06-14-2024 End: 06-14-2024 ambulatory RAMSES SAKSHI Not Available Start: 05-17-2024 End: 05-17-2024 ambulatory RAMSES SAKSHI Not Available Start: 05-17-2024 End: 05-17-2024 flow sheet Ramses Sakshi DO Work Phone: [facility] Comment on above: 20 weeks gestation o f ; Second trimester ; Diabetes mellitus screening; Encounter for follow-up ultrasound of anatomy; Hemorrhoids, unspecified hemorrhoid type Start: 05-17-2024 End: 05-17-2024 ambulatory RAMSES SAKSHI Not Available Start: 04-18-2024 End: 04-18-2024 Bamboo flowsheet Ramses Sakshi DO Work Phone: [facility] Start: 04-18-2024 End: 04-18-2024 Bamboo flowsheet Ramses Sakshi DO Work Phone: [facility] Start: 04-18-2024 End: 04-18-2024 flow sheet Ramses Sakshi DO Work Phone: [facility] Comment on above: Second trimester pre gnancy; 16 weeks gestation of ; Screening, , for anatomic survey; STD exposure; Vaginal discharge Start: 04-18-2024 End: 04-18-2024 ambulatory RAMSES SAKSHI Not Available Start: 03-21-2024 End: 01-22-2025 Bamboo flowsheet Ramses Sakshi DO Work Phone: [facility] Start: 03-21-2024 End: 03-21-2024 Bamboo flowsheet Ramses Sakshi DO Work Phone: [facility] Start: 03-21-2024 End: 03-21-2024 flow sheet Ramses Sakshi DO Work Phone: [facility] Comment on above: First trimester preg benny; 12 weeks gestation of Start: 03-21-2024 End: 03-21-2024 ambulatory RAMSES SAKSHI Not Available Start: 03-09-2024 End: 03-12-2024 Clinisync Result Encounter Ramses Sakshi DO Work Phone: [facility] Unsolicited Start: 03-09-2024 End: 03-12-2024 Clinisync Result Encounter Ramses Sakshi DO Work Phone: [facility] Unsolicited Start: 03-01-2024 End: 03-01-2024 Office outpatient visit 5 minutes [facility] Sakshi Nurse [facility] Comment on above: GA: 9w1d Start: 03-01-2024 End: 03-01-2024 ambulatory RAMSES SAKSHI Not Available Start: 11-30-2023 End: 11-30-2023 Office outpatient new 30 minutes Pa Dasilva MD Work Phone: [facility] Comment on above: Palpitation (Primary Dx); Acne vulgaris Start: 11-30-2023 End: 11-30-2023 ambulatory PA DASILVA [facility] Start: 11-09-2023 End: 11-09-2023 Office outpatient visit 15 minutes Ramses Sakshi DO Work Phone: [facility] Comment on above: Female infertility; PCOS (polycystic ovarian syndrome); Abnormal uterine bleeding (AUB) Start: 11-09-2023 End: 11-09-2023 ambulatory RAMSES SAKSHI Not Available Start: 11-09-2023 End: 11-09-2023 Bamboo flowsheet Ramses Sakshi DO Work Phone: [facility] Start: 11-09-2023 End: 11-09-2023 Bamboo flowsheet Ramses Cantor DO Work Phone: [facility] Start: 05-26-2022 End: 05-26-[address] RAMSES CANTOR . Facility: Start: 11-30-2021 End: 11-30-[address] NONE LISTED REQUEST Facility:[facility] Start: 11-25-2021 End: 11-27-2021 Evaluation and management of inpatient DR RAMSES CANTOR . Facility:[facility] Start: 11-23-2021 End: 11-23-[address] RAMSES CANTOR . Facility:[facility] Start: 11-12-2021 End: 11-13-[address] RAMSES CANTOR . Facility: Start: 11-03-2021 End: 11-03-[address] RAMSES CANTOR . Facility:[facility] Start: 10-24-[address] RAMSES CANTOR . Facili ty:[facility] Start: 08-08-2021 End: 08-09-[address] RAMSES CANTOR . Facility: Start: 07-13-2021 End: 07-14-[address] RAMSES CANTOR . Facility:[facility] Start: 06-19-[address] RAMSES CANTOR . Facili ty:[facility] Start: 12-20-2019 End: 12-21-2019 Patient encounter procedure MALCOM GUNTER Facility:[facility] Start: 05-08-2019 End: 05-09-2019 Patient encounter procedure DORCAS MARTINEZ [facility] Start: 05-08-2019 End: 05-08-2019 Subsequent hospital visit by physician Malcom Gunter [facility] Laboratory Comment on above: Screen for STD (sexu ally transmitted disease); Well woman exam with routine gynecological exam Procedures Date Procedure Procedure Detail Performing Clinician Start: 09-15-2024 ALL CBC WITH AUTO DIFF Ramses Peteo DO Work Phone: Start: 09-13-2024 AMNISURE Ramses Fazi o DO Work Phone: Start: 09-11-2024 Urnls dip stick/tabl et rgnt non-auto w/o micrscp Ramses Sakshi DO Work Phone: Start: 09-04-2024 Urnls dip stick/tabl et rgnt non-auto w/o micrscp Ramses Sakshi DO Work Phone: Start: 08-21-2024 Urnls dip stick/tabl et rgnt non-auto w/o micrscp Ramses Sakshi DO Work Phone: Start: 08-07-2024 Urnls dip stick/tabl et rgnt non-auto w/o micrscp Diana VIRGEN Work Phone: Start: 07-25-2024 Urnls dip stick/tabl et rgnt non-auto w/o micrscp Ramses Sakshi DO Work Phone: Start: 07-10-2024 Urnls dip stick/tabl et rgnt non-auto w/o micrscp Ramses Sakshi DO Work Phone: Start: 06-23-2024 ALL CBC WITH AUTO DIFF Ramses Sakshi DO Work Phone: Start: 06-23-2024 GLUCOSE 1 HOUR Ramses Fa zio DO Work Phone: Start: 06-14-2024 Urnls dip stick/tabl et rgnt non-auto w/o micrscp Ramses Sakshi DO Work Phone: Start: 05-17-2024 Urnls dip stick/tabl et rgnt non-auto w/o micrscp Ramses Sakshi DO Work Phone: Start: 04-18-2024 Urnls dip stick/tabl et rgnt non-auto w/o micrscp Ramses Sakshi DO Work Phone: Start: 03-21-2024 Urnls dip stick/tabl et rgnt non-auto w/o micrscp Ramses Sakshi DO Work Phone: Start: 03-09-2024 BOX TEST Ramses Facarmen gooden DO Work Phone: Start: 03-01-2024 End: 03-01-2024 Urnls dip stick/tablet rgnt non-auto w/o micrscp Ramses Cantor DO Work Phone: Start: 11-30-2023 Adult depression scr eening assessment Pa Dasilva MD Work Phone: Start: 06-01-2023 Cytp cerv/vag auto t hin layer prep mnl screen Ramses Sakshi DO Work Phone: Start: 11-25-2021 Delivery of Products of Conception, External Approach DR RAMSES CANTOR . Start: 11-25-2021 Drainage of Amniotic Fluid, Therapeutic from Products of Conception, Via Natural or Artificial Opening DR RAMSES CANTOR . Start: 11-25-2021 Introduction of Othe r Hormone into Peripheral Vein, Percutaneous Approach DR RAMSES CANTOR . Start: 11-25-2021 Repair Perineum Skin , External Approach DR RAMSES CANTOR . Start: 05-08-2019 Iaad ia chlamydia trachomatis DORCAS MARTINEZ Start: 05-08-2019 Screen pap by florencio nelson md supv DORCAS MARTINEZ Plan of Treatment Date Care Activity Detail Author Start: 07-18-2047 Shingles Vaccine (1 of 2) Shingles Vaccine (1 of 2) [place] Start: 11-29-2024 Adult BMI Screening Adult BMI Screen ing [facility] Start: 11-29-2024 Depression Screening Depression Scre ening [facility] Start: 11-29-2024 Tobacco Screening Tobacco Screening [facility] Start: 10-02-2024 End: 10-02-2024 Patient encounter procedure 10/02/2024 9:40 AM EDT Routine [facility] [address] [facility] [place] [address] Ramses Cantor, DO [address] [place] [address] [facility] Start: 09-25-2024 End: 09-25-2024 Patient encounter procedure 09/25/2024 9:40 AM EDT Routine [facility] [address] [place] [id number] Ramses Cantor, DO [address] [place] [address] [facility] Start: 09-18-2024 End: 09-18-2024 Patient encounter procedure 09/18/2024 9:40 AM EDT Routine [facility] [address] [place] [phone] Ramses Cantor, DO [address] [place], [place] [id number] [facility] Start: 09-11-2024 End: 09-11-2024 Patient encounter procedure 09/11/2024 9:40 AM EDT Routine [facility] [address] [place] [address] Ramses Cantor, DO [address] [place] [address] [facility] Start: 09-04-2024 End: 09-04-2025 CULTURE, GROUP B STREP WITH SUSCEPTIBLITY CULTURE, GROUP B STREP WITH SUSCEPTIBLITY Lab Routine Third trimester ([facility]) Expected: 09/04/2024, Expires: 09/04/2025 [facility] Work Phone: Comment on above: Expected: 09/04/2024 , Expires: 09/04/2025 Start: 09-04-2024 End: 09-04-2024 Patient encounter procedure 09/04/2024 9:40 AM EDT Routine [facility] [address] [place] [address] Ramses Cantor, DO [address] [place], [place] [id number] [facility] Start: 08-21-2024 End: 08-21-2024 Patient encounter procedure 08/21/2024 9:40 AM EDT Routine [facility] [address] [place] [phone] Ramses Cantor, DO [address] [place] [address] [facility] Start: 08-07-2024 End: 08-07-2024 Patient encounter procedure 08/07/2024 9:30 AM EDT Routine [facility] [address] [place] [address] Diana Samuel PA [address] [place], [place] [id number] [facility] Start: 08-07-2024 End: 08-07-2024 Professional / ancillary services management 08/07/2024 9:00 AM EDT Ancillary Procedure [facility] [address] [place] [address] [facility] Start: 07-25-2024 End: 07-25-2024 Patient encounter procedure [facility] Comment on above: Arrived Start: 07-10-2024 End: 11-10-2024 US for US OB follow up transabdominal approach Imaging Routine size inconsistent with dates Expected: 07/10/2024, Expires: 11/10/2024 [facility] Work Phone: Comment on above: Expected: 07/10/2024 , Expires: 11/10/2024 Start: 07-10-2024 End: 07-10-2024 Patient encounter procedure 07/10/2024 9:10 AM EDT Routine [facility] [address] [place] [phone] Ramses Cantor, DO [address] [place], [place] [id number] [facility] Start: 06-06-2024 End: 06-06-2024 Patient encounter procedure 06/06/2024 4:00 PM EDT Office Visit [facility] [address] [place] [phone] Ramses Cantor DO [address] [place] [address] [facility] Start: 05-17-2024 End: 05-17-2025 CBC panel - Blood by Automated count CBC Lab Routine Diabetes mellitus screening Expected: 05/17/2024 (Approximate), Expires: 05/17/2025 [facility] Work Phone: Comment on above: Expected: 05/17/2024 (Approximate), Expires: 05/17/2025 Start: 05-17-2024 End: 05-17-2025 Measurement of glucose 1 hour after glucose challenge for glucose tolerance test Glucose tolerance, 1 hour Lab Routine Diabetes mellitus screening Expected: 05/17/2024 (Approximate), Expires: 05/17/2025 [facility] Comment on above: Expected: 05/17/2024 (Approximate), Expires: 05/17/2025 Start: 05-17-2024 End: 05-17-2025 US for US OB limited 1+ fetuses Imaging Routine Encounter for follow-up ultrasound of anatomy Expected: 05/17/2024, Expires: 05/17/2025 [facility] Work Phone: Comment on above: Expected: 05/17/2024 , Expires: 05/17/2025 Start: 04-18-2024 End: 06-16-2024 Alpha fetoprotein, maternal Alpha fetoprotein, maternal Lab Routine Screening, , for anatomic survey Expected: 04/18/2024 (Approximate), Expires: 06/16/2024 [facility] Comment on above: Expected: 04/18/2024 (Approximate), Expires: 06/16/2024 Start: 04-18-2024 End: 04-18-2025 US for US OB 14+ weeks anatomy scan Imaging Routine Screening, , for anatomic survey Expected: 04/18/2024, Expires: 04/18/2025 [facility] Comment on above: Expected: 04/18/2024 , Expires: 04/18/2025 Start: 04-18-2024 End: 04-18-2024 Patient encounter procedure [facility] Comment on above: Arrived Start: 03-21-2024 End: 03-21-2024 Patient encounter procedure [facility] Comment on above: Arrived Start: 03-01-2024 End: 03-01-2025 ABO/Rh ABO/Rh Lab Routine Missed menses , unspecified gestational age Expected: 03/01/2024 (Approximate), Expires: 03/01/2025 [facility] Comment on above: Expected: 03/01/2024 (Approximate), Expires: 03/01/2025 Start: 03-01-2024 End: 03-01-2025 Blood type and Indirect antibody screen panel - Blood Type and screen Lab Routine Missed menses , unspecified gestational age Expected: 03/01/2024 (Approximate), Expires: 03/01/2025 [facility] Work Phone: Comment on above: Expected: 03/01/2024 (Approximate), Expires: 03/01/2025 Start: 03-01-2024 End: 03-01-2025 Drugs of abuse panel - Urine by Screen method Rapid drug screen, urine Lab Routine , unspecified gestational age Encounter for supervision of normal first in first trimester Expected: 03/01/2024 (Approximate), Expires: 03/01/2025 [facility] Comment on above: Expected: 03/01/2024 (Approximate), Expires: 03/01/2025 Start: 03-01-2024 End: 03-01-2025 US Pelvis transvaginal US OB transvaginal Imaging Routine Missed menses Expected: 03/01/2024 (Approximate), Expires: 03/01/2025 [facility] Comment on above: Expected: 03/01/2024 (Approximate), Expires: 03/01/2025 Start: 11-09-2023 End: 11-09-2023 Patient encounter procedure 11/09/2023 3:10 PM EDT Office Visit [facility] [address] [place] [id number] Ramses Cantor, DO [address] [place] [address] [place] [address] Arrived [facility] Comment on above: Arrived Start: 11-09-2023 End: 11-08-2024 Antimullerian hormone (AMH) Antimullerian hormone (AMH) Lab Routine Female infertility Abnormal uterine bleeding (AUB) Expected: 11/09/2023 (Approximate), Expires: 11/08/2024 [facility] Comment on above: Expected: 11/09/2023 (Approximate), Expires: 11/08/2024 Start: 11-09-2023 End: 11-08-2024 DHEA DHEA Lab Routine PCOS (polycystic ovarian syndrome) Expected: 11/09/2023 (Approximate), Expires: 11/08/2024 [facility] Comment on above: Expected: 11/09/2023 (Approximate), Expires: 11/08/2024 Start: 11-09-2023 End: 11-08-2024 US for US PELVIS-TRANSVAG IF INDICATED Imaging Routine PCOS (polycystic ovarian syndrome) Expected: 11/09/2023 (Approximate), Expires: 11/08/2024 [facility] Comment on above: Expected: 11/09/2023 (Approximate), Expires: 11/08/2024 Start: 10-30-2023 Influenza vaccination Influenza Vacc ine [facility] Start: 11-28-2019 Cervical cancer screen [facility] on above: Postponed from 07/17 (Not Indicated) Start: 11-28-2019 [facility]lam[facility] on above: Postponed from 03/23 (Not Indicated) Start: 07-02-2019 [facility] from 07/17 (Not Indicated) Start: 07-02-2019 HPV vaccine (1 - 2-d ose series) HPV vaccine (1 - 2-dose series) [facility] Comment on above: Postponed from 07/17 (Not Indicated) Start: 07-02-2019 Influenza vaccination Flu vaccine (# 1) [place] Comment on above: Postponed from 10/29 (Not Indicated) Start: 05-29-2019 DTaP/Tdap/Td vaccine (1 - Tdap) DTaP/Tdap/Td vaccine (1 - Tdap) [place] Comment on above: Postponed from 07/17 (Not Indicated) Start: 05-29-2019 Varicella vaccine (1 of 2 - 2-dose childhood series) Varicella vaccine (1 of 2 - 2-dose childhood series) [place] Comment on above: Postponed from 07/17 (Not Indicated) Start: 2018 Screening for malign ant neoplasm of cervix Pap Smear [facility] Start: 2016 DTaP,Tdap and Td Vaccines (1 - Tdap) DTaP,Tdap and Td Vaccines (1 - Tdap) [facility] Bacteria identified in Urine by Culture Urine culture Microbiology Routine Missed menses Ordered: 03/01/2024 [facility] Comment on above: Ordered: 03/01/2024 End: 05-08-2019 C.trachomatis N.gonorrhoeae DNA, Thin Prep C.trachomatis N.gonorrhoeae DNA, Thin Prep Microbiology Routine Screen for STD (sexually transmitted disease) 1 Occurrences starting 05/08/2019 until 05/08/2019 [place] Comment on above: 1 Occurrences starti ng 05/08/2019 until 05/08/2019 C.trachomatis N.gonorrhoeae DNA, Thin Prep C.trachomatis N.gonorrhoeae DNA, Thin Prep Microbiology Routine Screen for STD (sexually transmitted disease) 05/08/2019 6:56 PM EDT [place] CBC W Auto Different ial panel - Blood CBC and differential Lab Routine PCOS (polycystic ovarian syndrome) Ordered: 11/09/2023 [facility] Comment on above: Ordered: 11/09/2023 CBC W Auto Different ial panel - Blood CBC and differential Lab Routine Missed menses , unspecified gestational age Ordered: 03/01/2024 [facility] Comment on above: Ordered: 03/01/2024 CHLAMYDIA TRACHOMATI S (GENITO/STI) CHLAMYDIA TRACHOMATIS (GENITO/STI) Lab Routine STD exposure Vaginal discharge Ordered: 04/18/2024 [facility] Comment on above: Ordered: 04/18/2024 End: 05-08-2019 Cytopathology procedure, preparation of smear, genital source PAP SMEAR Lab Routine Well woman exam with routine gynecological exam 1 Occurrences starting 05/08/2019 until 05/08/2019 [facility] [place] Comment on above: 1 Occurrences starti ng 05/08/2019 until 05/08/2019 DHEA-sulfate DHEA-sulfate Lab Routine PCOS (polycystic ovarian syndrome) Ordered: 11/09/2023 [facility] Comment on above: Ordered: 11/09/2023 Follicle stimulating hormone Follicle stimulating hormone Lab Routine PCOS (polycystic ovarian syndrome) Ordered: 11/09/2023 [facility] Comment on above: Ordered: 11/09/2023 hCG, quantitative, hCG, quantitative, Lab Routine PCOS (polycystic ovarian syndrome) Ordered: 11/09/2023 [facility] Work Phone: Comment on above: Ordered: 11/09/2023 Hemoglobin A1c/Hemoglobin.total in Blood Hemoglobin A1c Lab Routine Abnormal uterine bleeding (AUB) Ordered: 11/09/2023 [facility] Comment on above: Ordered: 11/09/2023 Hemoglobin A1c/Hemoglobin.total in Blood Hemoglobin A1c Lab Routine Missed menses , unspecified gestational age Ordered: 03/01/2024 [facility] Comment on above: Ordered: 03/01/2024 Hepatitis B virus surface Ag [Presence] in Serum or Plasma by Immunoassay Hepatitis B surface antigen Lab Routine Missed menses , unspecified gestational age Ordered: 03/01/2024 [facility] Comment on above: Ordered: 03/01/2024 Hepatitis C virus Ab [Presence] in Serum or Plasma by Immunoassay Hepatitis C antibody Lab Routine Missed menses , unspecified gestational age Ordered: 03/01/2024 [facility] Comment on above: Ordered: 03/01/2024 HIV-1/HIV-2 antigen/antibody combination immunoassay HIV-1 and HIV-2 antibodies Lab Routine Missed menses , unspecified gestational age Ordered: 03/01/2024 [facility] Comment on above: Ordered: 03/01/2024 Luteinizing hormone Luteinizing hormone Lab Routine PCOS (polycystic ovarian syndrome) Ordered: 11/09/2023 [facility] Comment on above: Ordered: 11/09/2023 Neisseria gonorrhoea e DNA [Presence] in Unspecified specimen by DHEERAJ with probe detection Neisseria gonorrhea DNA probe, direct Lab Routine STD exposure Vaginal discharge Ordered: 04/18/2024 [facility] Comment on above: Ordered: 04/18/2024 Reagin Ab [Presence] in Serum by RPR RPR Lab Routine Missed menses , unspecified gestational age Ordered: 03/01/2024 [facility] Comment on above: Ordered: 03/01/2024 Rubella antibody, IgG Rubella an tibody, IgG Lab Routine Missed menses , unspecified gestational age Ordered: 03/01/2024 [facility] Comment on above: Ordered: 03/01/2024 SURESWAB(R) ADVANCED VAGINITIS PLUS, TMA SURESWAB(R) ADVANCED VAGINITIS PLUS, TMA Pathology and Cytology Routine STD exposure Vaginal discharge Ordered: 04/18/2024 [facility] Work Phone: Comment on above: Ordered: 04/18/2024 Thyrotropin [Units/volume] in Serum or Plasma TSH Lab Routine PCOS (polycystic ovarian syndrome) Ordered: 11/09/2023 [facility] Comment on above: Ordered: 11/09/2023 Thyroxine (T4) free [Mass/volume] in Serum or Plasma T4, free Lab Routine PCOS (polycystic ovarian syndrome) Ordered: 11/09/2023 [facility] Comment on above: Ordered: 11/09/2023 Payers Date Payer Category Payer Unknown 2014 Unknown BCBS BCBS - [place] P PO xxxxxxxxxxxx 2014-Present [address] [place] [address] xxxxxxxxxxxx [id number] 2013 Private Health Insurance [id number] 2013 Private Health Insurance [id number] 1997 Unknown [id number] 2.16.840.1.188499.3.579.2 .173 1997 Unknown [id number] 2.16.840.1.793146.3.579.2 .196 1997 Unknown [id number] 2.16.840.1.747993.3.579.2 .593 1997 Unknown [id number] 2.16.840.1.616342.3.579.2 .593 1997 Unknown [id number] 2.16.840.1.736483.3.579.2 .593 1997 Unknown [id number] 2.16.840.1.932195.3.579.2 .593 1997 Unknown [id number] 2.16.840.1.735345.3.579.2 .593 1997 Unknown [id number] 2.16.840.1.250359.3.579.2 .593 1997 Unknown [id number] 2.16.840.1.699740.3.579.2 .593 1997 Unknown [id number] 2.16.840.1.116692.3.579.2 .593 1997 Unknown [id number] 2.16.840.1.177557.3.579.2 .593 1997 Unknown [id number] 2.16.840.1.656347.3.579.2 .593 1997 Unknown [id number] 2.16.840.1.973233.3.579.2 .1286 1997 Unknown [id number] 2.16.840.1.359054.3.579.2 .1259 1997 Unknown [id number] 2.16.840.1.324311.3.579.2 .1259 1997 Unknown [id number] 2.16.840.1.019576.3.579.2 .1259 1997 Unknown [id number] 2.16.840.1.318813.3.579.2 .1259 1997 Unknown [id number] 2.16.840.1.612577.3.579.2 .1259 1997 Unknown [id number] 2.16.840.1.290384.3.579.2 .1258 1997 Unknown [id number] 2.16.840.1.330912.3.579.2 .1258 1997 Unknown [id number] 2.16.840.1.289029.3.579.2 .1258 1997 Unknown [id number] 2.16.840.1.021003.3.579.2 .1258 1997 Unknown [id number] 2.16.840.1.526864.3.579.2 .1258 1997 Unknown [id number] 2.16.840.1.154072.3.579.2 .1258 1997 Unknown [id number] 2.16.840.1.555189.3.579.2 .1258 1997 Unknown [id number] 2.16.840.1.717173.3.579.2 .1258 1997 Unknown [id number] 2.16.840.1.323362.3.579.2 .1258 1997 Unknown [id number] 2.16.840.1.790629.3.579.2 .1258 1997 Unknown [id number] 2.16.840.1.123227.3.579.2 .9 1959 Self-pay 1959 Unknown [id number] 1959 Unknown [id number] 1959 Unknown [id number] Social History Date Type Detail Facility Start: 05-08-2019 End: 03-11-2023 Tobacco smoking status NHIS Never smoker [place] Start: 05-08-2019 End: 11-30-2023 Alcohol intake Current drinker of alcohol (finding) [place] Start: 11-27-2018 Alcohol Comment socially [place], [place] Start: 1997 Sex Assigned At Not on file M [place] Start: 03-11-2023 End: 11-30-2023 Tobacco use and exposure Smokeless tobacco non-user [facility] Start: 06-01-2023 End: 11-09-2023 History of Social function [facility] Start: 06-01-2023 End: 11-09-2023 Tobacco use panel [facility] Start: 01-11-2024 [facility] Adolescent depressio n screening assessment 0 [facility] Clinical Notes 11-09-2023 to 09-11-2024 Laura Millan, AG - 09/11/2024 9:40 AM EDAntelmo Millan, AG - 09/04/2024 9:40 AM Oracio Millan LPN - 08/21/2024 9:40 AM PROMISE Newman - 08/07/2024 9:30 AM PROMISE Newman - 06/14/2024 8:30 AM EDT Note Date & Type Note Facility 09-11-2024 History of Presen t illness Narrative Reason for Appointment: Patient ID: Douglas Duke is a 29 y.o. female who [...] nursing note reviewed. Exam conducted with a rink rat present. Vitals: Estimated body mass index is 25.4 kg/m as calculated from the following: Height as of 07/10/24: 5' 4 . Weight as of this encounter: 148 lb. BP: 110/62 Patient's last menstrual period was 12/28/2023. ASSESSMENT & PLAN ICD-10-CM 1. Third trimester ([facility]) Z34.93 POCT urinalysis dipstick manually resulted 2. 36 weeks gestation of ([facility]) Z3A.36 Return OB: Patient presents today [...] by Laura Millan LPN on behalf of: Ramses Cantor DO documented in this encounter [facility] 09-04-2024 History of Presen t illness Narrative Reason for Appointment: Patient ID: Douglas Duke is a 29 y.o. female who [...] nursing note reviewed. Exam conducted with a rink rat present. Vitals: Estimated body mass index is 25.06 kg/m as calculated from the following: Height as of 07/10/24: 5' 4 . Weight as of this encounter: 146 lb. BP: 112/70 Patient's last menstrual period was 12/28/2023. ASSESSMENT & PLAN ICD-10-CM 1. Third trimester ([facility]) Z34.93 POCT urinalysis dipstick manually resulted CULTURE, GROUP B STREP WITH SUSCEPTIBLITY CULTURE, GROUP B STREP WITH SUSCEPTIBLITY 2. 35 weeks gestation of ([facility]) Z3A.35 Patient is doing well but has [...] by Laura Millan LPN on behalf of: Ramses Cantor DO documented in this encounter [facility] 08-21-2024 History of Presen t illness Narrative Reason for Appointment: Patient ID: Douglas Duke is a 29 y.o. female who [...] nursing note reviewed. Exam conducted with a rink rat present. Vitals: Estimated body mass index is 24.72 kg/m as calculated from the following: Height as of 25: 5' 4 . Weight as of this encounter: 144 lb. BP: 118/62 Patient's last menstrual period was 12/28/2023. ASSESSMENT & PLAN ICD-10-CM 1. Third trimester ([facility]) Z34.93 Urine dip 2. 34 weeks gestation of ([facility]) Z3A.34 Urine dip Return OB: Patient presents [...] by Laura Millan LPN on behalf of: Ramses Cantor DO documented in this encounter [facility] 08-07-2024 History of Presen t illness Narrative Reason for Appointment: Patient ID: Douglas Duke is a 29 y.o. female who presents for Routine Visit Patient presents today for Return OB appointment. MEDICATIONS Current Outpatient Medications Medication Instructions MAGnesium-Oxide 400 mg, Daily Vit-Fe Fumarate-FA (PNV FOLIC ACID + IRON PO) PNV Folic Acid + Iron ALLERGIES Allergies Allergen Reactions Aldactone [Spironolactone] Rash [...] Exam Constitutional: Appearance: Normal appearance. She is normal weight. HENT: Head: Normocephalic. Cardiovascular: Rate and Rhythm: Normal rate. Pulses: Normal pulses. Pulmonary: Effort: Pulmonary effort is normal. Breath sounds: Normal breath sounds. Abdominal: Palpations: Abdomen is soft. Musculoskeletal: General: Normal range of motion. Neurological: General: No focal deficit present. Mental Status: She is alert and oriented to person, place, and time. Psychiatric: Mood and Affect: Mood normal. Behavior: Behavior normal. Thought Content: Thought content normal. Judgment: Judgment normal. Vitals and nursing note reviewed. Vitals: Estimated body mass index is 24.1 kg/m as calculated from the following: Height as of 07/10/24: 5' 4 . Weight as of 07/25/24: 140 lb 6.4 oz. BP: Patient's last menstrual period was 12/28/2023. ASSESSMENT & PLAN ICD-10-CM 1. Third trimester Z34.93 POCT urinalysis dipstick manually resulted 2. 31 weeks gestation of Z3A.31 Return OB: Patient presents today for a routine obstetrics appointment. Patient is currently 31w6d . Patient states she is doing well but has complaints of being tired due to current . Patient states she continues to have hip pain and taking Tylenol. Pt states she is at at a point that she can not sleep. Is wondering if Unisom ok to take this far in and itching at night too. Patient has verbalizes frequent movement. labor precautions was discussed/given and patient was instructed to perform kick counts three times a day. Orders Placed This Encounter Procedures POCT urinalysis dipstick manually resulted Follow Up: Patient is to return to office in 2 week for routine OB appointment. Documented by Cande Barkley MA on behalf of: PROMISE Terry documented in this encounter [facility] 07-25-2024 History of Presen t illness Narrative Reason for Appointment: Patient ID: Douglas Duke is a 29 y.o. female who presents for Routine Visit Patient presents today for Return OB appointment. MEDICATIONS Current Outpatient Medications Medication Instructions Vit-Fe Fumarate-FA (PNV FOLIC ACID + IRON PO) PNV Folic Acid + Iron ALLERGIES Allergies Allergen Reactions Aldactone [Spironolactone] Rash [...] nursing note reviewed. Exam conducted with a rink rat present. Vitals: Estimated body mass index is 24.1 kg/m as calculated from the following: Height as of 07/10/24: 5' 4 . Weight as of this encounter: 140 lb 6.4 oz. BP: 118/60 Patient's last menstrual period was 12/28/2023. ASSESSMENT & PLAN ICD-10-CM 1. 30 weeks gestation of Z3A.30 POCT urinalysis dipstick manually resulted 2. Third trimester Z34.93 POCT urinalysis dipstick manually resulted Return OB: Patient presents today for a routine obstetrics appointment. Patient is currently 30w0d . Patient states she is doing well [...] by Laura Millan LPN on behalf of: Ramses Cantor DO documented in this encounter [facility] 07-10-2024 History of Presen t illness Narrative Reason for Appointment: Patient ID: Douglas Duke is a 28 y.o. female who presents for Routine Visit Patient presents today for Return OB appointment. MEDICATIONS Current Outpatient Medications Medication Instructions Vit-Fe Fumarate-FA (PNV FOLIC ACID + IRON PO) PNV Folic Acid + Iron tretinoin (Retin-A) 0.05 % cream Apply to the face qPM ALLERGIES Allergies Allergen Reactions Aldactone [Spironolactone] Rash [...] nursing note reviewed. Exam conducted with a rink rat present. Vitals: Estimated body mass index is 23.86 kg/m as calculated from the following: Height as of this encounter: 5' 4 . Weight as of this encounter: 139 lb. BP: 102/62 Patient's last menstrual period was 12/28/2023. ASSESSMENT & PLAN ICD-10-CM 1. Second trimester Z34.92 POCT urinalysis dipstick manually resulted 2. 27 weeks gestation of Z3A.27 Return OB: Patient presents today for a routine obstetrics appointment. Patient is currently 27w6d . Patient states she is doing well [...] by Laura Millan LPN on behalf of: Ramses Cantor DO documented in this encounter [facility] 06-14-2024 History of Presen t illness Narrative Reason for Appointment: Patient ID: Douglas Duke is a 28 y.o. female who presents for Routine Visit Patient presents today for Return OB appointment. MEDICATIONS Current Outpatient Medications Medication Instructions Vit-Fe Fumarate-FA (PNV FOLIC ACID + IRON PO) PNV Folic Acid + Iron tretinoin (Retin-A) 0.05 % cream Apply to the face qPM ALLERGIES Allergies Allergen Reactions Aldactone [Spironolactone] Rash [...] Exam Constitutional: Appearance: Normal appearance. She is normal weight. HENT: Head: Normocephalic. Cardiovascular: Rate and Rhythm: Normal rate. Pulses: Normal pulses. Pulmonary: Effort: Pulmonary effort is normal. Breath sounds: Normal breath sounds. Abdominal: Palpations: Abdomen is soft. Musculoskeletal: General: Normal range of motion. Neurological: General: No focal deficit present. Mental Status: She is alert and oriented to person, place, and time. Psychiatric: Mood and Affect: Mood normal. Behavior: Behavior normal. Thought Content: Thought content normal. Judgment: Judgment normal. Vitals and nursing note reviewed. Vitals: There is no height or weight on file to calculate BMI. BP: 98/66 Patient's last menstrual period was 12/28/2023. ASSESSMENT & PLAN ICD-10-CM 1. Second trimester Z34.92 POCT urinalysis dipstick manually resulted 2. 24 weeks gestation of Z3A.24 Return OB: Patient presents today for a routine obstetrics appointment. Patient is currently 24w1d . Patient states she is doing well but has complaints of being tired due to current . Patient has verbalizes frequent movement. Orders Placed This Encounter Procedures POCT urinalysis dipstick manually resulted Follow Up: Patient is to return to office in 4 week for routine OB appointment. Documented by PROMISE Terry on behalf of: Ramses Cantor DO documented in this encounter [facility] 05-17-2024 History of Presen t illness Narrative Reason for Appointment: Patient ID: Douglas Duke is a 28 y.o. female who presents for Routine Visit Patient presents today for Return OB appointment. MEDICATIONS Current Outpatient Medications Medication Instructions Vit-Fe Fumarate-FA (PNV FOLIC ACID + IRON PO) PNV Folic Acid + Iron tretinoin (Retin-A) 0.05 % cream Apply to the face qPM ALLERGIES Allergies Allergen Reactions Aldactone [Spironolactone] Rash [...] SYSTEMS Review of Systems: Review of Systems All other systems reviewed and are negative. OBJECTIVE Objective: Physical Exam Constitutional: Appearance: Normal [...] nursing note reviewed. Exam conducted with a rink rat present. Vitals: There is no height or weight on file to calculate BMI. BP: 100/58 Patient's last menstrual period was 12/28/2023. ASSESSMENT & PLAN ICD-10-CM 1. 20 weeks gestation of Z3A.20 POCT urinalysis dipstick manually resulted 2. Second trimester Z34.92 POCT urinalysis dipstick manually resulted 3. Diabetes mellitus screening Z13.1 CBC Glucose tolerance, 1 hour CBC Glucose tolerance, 1 hour 4. Encounter for follow-up ultrasound of anatomy Z36.2 US OB limited 1+ fetuses 5. Hemorrhoids, unspecified hemorrhoid type K64.9 Patient presents today for a routine obstetrics appointment. Patient is currently 20w1d with a Estimated Date of Delivery: 10/03/24. Patient complaints of sciatic pain not helped--discussed belly band. Informed patient that she needs to have a follow up scan in 2-4 weeks to clear cardiac. Patient voiced that she has painful, external hemorrhoids and would like to have management of these after delivery with possible referral for management. Discussed upcoming flying. Patient to return to clinic in 4 weeks. Documented by Heike Nayak LPN on behalf of:Diana Samuel PA-C documented in this encounter [facility] 04-18-2024 History of Presen t illness Narrative Reason for Appointment: Patient ID: Douglas Duke is a 28 y.o. female who presents for Routine Visit Patient presents today for Return OB appointment. MEDICATIONS Current Outpatient Medications Medication Instructions Vit-Fe Fumarate-FA (PNV FOLIC ACID + IRON PO) PNV Folic Acid + Iron tretinoin (Retin-A) 0.05 % cream Apply to the face qPM ALLERGIES Allergies Allergen Reactions Aldactone [Spironolactone] Rash [...] Exam Constitutional: Appearance: Normal appearance. She is normal weight. HENT: Head: Normocephalic. Cardiovascular: Rate and Rhythm: Normal rate. Pulses: Normal pulses. Pulmonary: Effort: Pulmonary effort is normal. Breath sounds: Normal breath sounds. Abdominal: Palpations: Abdomen is soft. Musculoskeletal: General: Normal range of motion. Neurological: General: No focal deficit present. Mental Status: She is alert and oriented to person, place, and time. Psychiatric: Mood and Affect: Mood normal. Behavior: Behavior normal. Thought Content: Thought content normal. Judgment: Judgment normal. Vitals and nursing note reviewed. Vitals: There is no height or weight on file to calculate BMI. BP: 104/76 Patient's last menstrual period was 12/28/2023. ASSESSMENT & PLAN ICD-10-CM 1. Second trimester Z34.92 POCT urinalysis dipstick manually resulted 2. 16 weeks gestation of Z3A.16 3. Screening, , for anatomic survey Z36.89 Alpha fetoprotein, maternal US OB 14+ weeks anatomy scan Alpha fetoprotein, maternal US OB 14+ weeks anatomy scan 4. STD exposure Z20.2 SURESWAB(R) ADVANCED VAGINITIS PLUS, TMA CHLAMYDIA TRACHOMATIS (GENITO/STI) Neisseria gonorrhea DNA probe, direct 5. Vaginal discharge N89.8 SURESWAB(R) ADVANCED VAGINITIS PLUS, TMA CHLAMYDIA TRACHOMATIS (GENITO/STI) Neisseria gonorrhea DNA probe, direct Return OB/Annual Exam: Patient presents today for a cultures/routine obstetrics appointment. Patient is currently 16w0d . Patient is doing well and states she has no complaints. cultures was obtained without difficulty and patient was given [facility] order to have obtained. Orders Placed This Encounter Procedures US OB 14+ weeks anatomy scan CHLAMYDIA TRACHOMATIS (GENITO/STI) Neisseria gonorrhea DNA probe, direct Alpha fetoprotein, maternal POCT urinalysis dipstick manually resulted Follow Up: Patient is to return to our office in 4 weeks for routine OB appointment Documented by PROMISE Terry on behalf of: Ramses Cantor DO documented in this encounter [facility] 03-21-2024 History of Presen t illness Narrative Reason for Appointment: Patient ID: Douglas Duke is a 28 y.o. female who presents for Routine Visit Patient presents today for Return OB appointment. MEDICATIONS Current Outpatient Medications Medication Instructions magnesium oxide (MAG-OX) 400 mg, Oral, Daily Vit-Fe Fumarate-FA (PNV FOLIC ACID + IRON PO) PNV Folic Acid + Iron tretinoin (Retin-A) 0.05 % cream Apply to the face qPM ALLERGIES Allergies Allergen Reactions Aldactone [Spironolactone] Rash [...] nursing note reviewed. Exam conducted with a rink rat present. Vitals: There is no height or weight on file to calculate BMI. BP: 116/72 Patient's last menstrual period was 12/28/2023. ASSESSMENT & PLAN ICD-10-CM 1. First trimester Z34.91 POCT urinalysis dipstick manually resulted 2. 12 weeks gestation of Z3A.12 New OB: Patient presents today for 1st time obstetrics appointment with provider. Patient is currently 12w0d . Patients history has been reviewed in great detail including any potential risks. Patient stated she currently has no complaints. Expectations throughout regarding labs, ultrasounds, and appointments have been discussed with the patient in detail. It was reiterated that the patient is to drink 6-8 glasses of water a day, eat 6 small meals a day, do not consume raw or undercooked meat, and stay away from [facility]. Patient has been consulted regarding any further do's and don'ts of . Patient voiced understanding and all questions and concerns were answered. Orders Placed This Encounter Procedures POCT urinalysis dipstick manually resulted Follow Up: Patient is to return in 4 weeks for routine OB appointment. Documented by Laura Millan LPN on behalf of: Ramses Cantor DO documented in this encounter [facility] 03-01-2024 History of Presen t illness Narrative Reason for Appointment: Patient ID: Douglas Duke is a 28 y.o. female who presents for Amenorrhea Patient presents today for a Nurse OB Intake appointment. Patient is 9w1d with a Estimated Date of Delivery: 10/03/24 OB History Para Term AB Living 2 1 1 1 SAB IAB Ectopic Multiple Live Births 1 # Outcome Date GA Lbr Steven/2nd Weight Sex Type Anes PTL Lv 2 Current 1 Term 11/25/21 M Vag-Spont BEATRIZ Current Medications: has a current medication list which includes the following prescription(s): ondansetron odt, vit-fe fumarate-fa, and tretinoin. Medical History: Active Ambulatory Problems Diagnosis Date Noted No Active Ambulatory Problems Resolved Ambulatory Problems Diagnosis Date Noted No Resolved Ambulatory Problems No Additional Past Medical History No family history on file. Social History Tobacco Use Smoking status: Never Smokeless tobacco: Never Substance Use Topics Alcohol use: Not on file Drug use: Not on file History reviewed. No pertinent surgical history. Allergies Allergen Reactions Aldactone [Spironolactone] Rash Possible allergy; not likely as rash was only on the neck and has had rash since being off of Aldactone Vitals: There is no height or weight on file to calculate BMI. BP: Patient's last menstrual period was 12/28/2023. Assessment/Plan Diagnoses and all orders for this visit: Missed menses - Type and screen; Future - ABO/Rh; Future - CBC and differential - Hemoglobin A1c - RPR - Rubella antibody, IgG - Hepatitis B surface antigen - Hepatitis C antibody - HIV-1 and HIV-2 antibodies - Urine culture - US OB transvaginal; Future - POCT , urine manually resulted - POCT urinalysis dipstick manually resulted , unspecified gestational age - Type and screen; Future - ABO/Rh; Future - CBC and differential - Hemoglobin A1c - RPR - Rubella antibody, IgG - Hepatitis B surface antigen - Hepatitis C antibody - HIV-1 and HIV-2 antibodies - Rapid drug screen, urine; Future Encounter for supervision of normal first in first trimester - Rapid drug screen, urine; Future Nurse Note: OB Intake: Patient presents today for first OB visit. Patients history has been reviewed in great detail including any potential risks. Patient signed consent forms and patient desires testing in both trimesters. Patient currently has no complaints and has been advised to drink 6-8 glasses of water a day, eat no raw or undercooked meat, and stay away from [facility]. Patient has also been advised to not change litter boxes and eat 6 small meals a day. Patient has been consulted regarding the do's and don'ts of . Patient was given labs and all questions and concerns were answered. Follow Up: Patient is to return in 4 weeks for routine OB appointment. Follow Up: Patient is to have labs drawn at directed and return to office for initial OB appointment with provider. Patient may call office as needed with any concerns or questions. Nurse Visit Completed by: Nathalia Felix LPN documented in this encounter [facility] 11-30-2023 History of Presen t illness Narrative Subjective Patient ID: Douglas Duke is a 28 y.o. female. 28 years old and healthy. Comes in for introduction. She has a couple year history of occasional palpitations that started when she was . Never any syncope or near-syncope. She notes a skipping of her heart. Initially when she had some feeling of racing of her heart but it was attributed to her status. Her heart does not race now. She uses Retin-A nightly for acne control. The following portions of the patient's history were reviewed and updated as appropriate: allergies, current medications, past family history, past medical history, past social history, past surgical history, and problem list. Review of Systems Objective Physical Exam Constitutional: Appearance: Normal appearance. Comments: Blood pressure normal. She looks well. Neck: Comments: No thyroid enlargement or tenderness Cardiovascular: Rate and Rhythm: Normal rate and regular rhythm. Heart sounds: No murmur heard. No gallop. Comments: No ectopy Pulmonary: Effort: Pulmonary effort is normal. Breath sounds: Normal breath sounds. Neurological: Mental Status: She is alert. Assessment/Plan Cardiac exam is normal in the palpitations are not suggestive of a sustained arrhythmia such as SVT and likely represent occasional ectopic beat. No further evaluation required at this time. Follow-up as needed. Diagnoses and all orders for this visit: Palpitation Acne vulgaris - tretinoin (RETIN-A) 0.1 % cream; Apply 1 Application topically nightly. documented in this encounter [facility] 11-09-2023 History of Presen t illness Narrative Reason for Appointment: Patient ID: Douglas Duke is a 28 y.o. female who presents for Infertility (Pt present today to discuss fertility ) Patient presents today for Fertility Follow Up appointment. MEDICATIONS Current Outpatient Medications Medication Instructions Vit-Fe Fumarate-FA (PNV FOLIC ACID + IRON PO) PNV Folic Acid + Iron tretinoin (Retin-A) 0.05 % cream Apply to the face qPM ALLERGIES Allergies Allergen Reactions Aldactone [Spironolactone] Rash [...] nursing note reviewed. Exam conducted with a rink rat present. Vitals: There is no height or weight on file to calculate BMI. BP: Patient's last menstrual period was 10/05/2023 (exact date). ASSESSMENT & PLAN ICD-10-CM 1. Female infertility N97.9 2. PCOS (polycystic ovarian syndrome) E28.2 Patient presents today to discuss fertility. Patient was given a standing lab order and ultrasound to have obtained. Patient was instructed to call the office once menstrual cycle begins so femara can be called into patients pharmacy. Patient has been instructed to take Femara on days 3-7 of cycle. On day 21 of cycle patient is to have progesterone labs drawn. Patient was advised to have intercourse on days 12, 14, 16, 18, and 20 of cycle. We will do six rounds of Femara and if patient has not conceived by then, we will perform HSG. Patient has voiced understanding and will call our office for any further questions/concerns. Semen analysis noted. No orders of the defined types were placed in this encounter. Follow Up: As needed Documented by Laura Millan LPN on behalf of: Ramses Cantor DO documented in this encounter [facility] Evaluation note Diagnosis Female infertility Female infertility of unspecified origin PCOS (polycystic ovarian syndrome) Polycystic ovaries Abnormal uterine bleeding (AUB) documented in this encounter [facility]* Diagnosis Missed menses , unspecified gestational age Encounter for supervision of normal first in first trimester documented in this encounter [facility]* Diagnosis First trimester state, incidental 12 weeks gestation of documented in this encounter [facility]* Diagnosis Palpitation- Primary Palpitations Acne vulgaris Other acne [facility] Diagnosis Second trimester state, incidental 16 weeks gestation of Screening, , for anatomic survey Encounter for anatomic survey STD exposure Vaginal discharge Leukorrhea, not specified as infective [facility] Diagnosis 20 weeks gestation of Second trimester state, incidental Diabetes mellitus screening Screening for diabetes mellitus Encounter for follow-up ultrasound of anatomy Hemorrhoids, unspecified hemorrhoid type [facility]* Diagnosis Second trimester state, incidental 24 weeks gestation of [facility]* Diagnosis Second trimester state, incidental 27 weeks gestation of size inconsistent with dates [facility]* Diagnosis 30 weeks gestation of Third trimester state, incidental [facility]* Diagnosis Third trimester state, incidental 31 weeks gestation of [facility]* Diagnosis Third trimester (HHS-HCC) state, incidental 34 weeks gestation of (HHS-HCC) [facility]* Diagnosis Third trimester (HHS-HCC) state, incidental 35 weeks gestation of (HHS-HCC) Heartburn during in third trimester (HHS-HCC) [facility]* Diagnosis Third trimester (HHS-HCC) state, incidental 36 weeks gestation of (HHS-HCC) documented [facility]ructionsNot on filedocumented [facility] Purpose Family History No Family History Records FoundNo Family History Records FoundNo Family History Records FoundNo Family History Records FoundNo Family History Records Found Advance Directives No Advanced Directives Records FoundDocuments on File Type Date 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 Advance Directives and Living Will 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 Assessments Diagnosis Screen for STD (sexually transmitted disease) Screening examination for venereal disease Well woman exam with routine gynecological exam Routine gynecological examination Reason for Referral Specialty Diagnoses / Procedures Referred By Jeffrey doyle Referred To Contact Diagnoses Acne vulgaris Pa Dasilva MD [address] [place] [address], [address] [place] [address] Referral ID Status Reason Start Date Expiration Date V isits Requested Visits Authorized [id number] Authorized 11/30/2023 11/29/2026 1 1 Additional Source Comments INFORMATION SOURCE (unrecogn ized section and content) DATE CREATED AUTHOR 05/17/2019 [facility] DATE CREATED AUTHOR AUTHOR'S ORGANIZ ATION 12/21/2019 [facility] DATE CREATED AUTHOR AUTHOR'S ORGANIZ ATION 06/05/2022 [facility] DATE CREATED AUTHOR AUTHOR'S ORGANIZ ATION 12/02/2023 [facility] DATE CREATED AUTHOR AUTHOR'S ORGANIZ ATION 09/15/2024 [facility] Reason for Visit (unrecogniz ed section and content) Reason Comments Infertility Pt present today to discuss fertility Reason Comments Amenorrhea Reason Comments Routine Visit Reason Comments new patient Get established Care Teams (unrecognized sec tion and content) 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 This clinical summary was aggregated from multiple sources. Caution should be exercised in using it in the provision of clinical care. This summary normalizes information from multiple sources, and as a consequence, information in this document may materially change the coding, format and clinical context of patient data. In addition, data may be omitted in some cases. CLINICAL DECISIONS SHOULD BE BASED ON THE PRIMARY CLINICAL RECORDS. [facility] [employer] [facility]. provides no warranty or guarantee of the accuracy or completeness of information in this document.
--- NOTE | 2024-09-28 12:59 | PC.NURSE ---
Carmelina and Chase arrive for follow up. Mom is worried because infant did not gain weight since last LC visit. States was peds office yesterday, and weight remained 6-12. to scales today, and weight is 7-0. Re weigh for comfort of mom. Weight remains 7-0. Discussed possible sound effects person error at peds office or inaccurate weight obtained. Mom relieved with infant weight gain. Discussed has been feeding well, every 2 hours during the day and every 3-4 hours at night. States baby is still very sleepy at times and is slow to feed Discussed LPI behaviors and expectations. Will return 10/04/2024 for next weight check. Leaves for home.
== END 2024-09-28 13:21 | disposition home or self-care (01) ==
LOC: FBCO 08:36
PROVIDERS: PCP Internal Medicine; Visit Provider Obstetrics & Gynecology
DX: Z39.1 Encounter for care and examination of lactating mother (principal)
CPT/HCPCS: G0463

== ENCOUNTER 2024-12-18 12:58 | Outpatient (REF) | payer OTHER, SELFPAY ==
--- OUTSIDE RECORDS SUMMARY | 2024-12-18 10:30 | XMS_ITS | Encounter Summary ---
Author Organization [facility] Address [address] [place] [address] Care Team Providers Care Senior C Developer Name Role Phone Unavailable Primary Care Provider Unavailabl e Reason for Visit * ReasonCommentsGynecologic ExamPt present today for an Annual/IUD string check. Pt had Mirena IUD inserted on 11/20/2024. Encounter Details DateTypeDepartmentCare Team (Latest Contact Info)Nzpzmqjdspy63/21/2025 10:30 AM EDTProcedure Visit [facility] [address] [id number] Valerio Cantor, [address] [place], [place] [id number] Well woman exam with routine gynecological exam; Intrauterine device surveillance Social History Tobacco UseTypesPacks/DayYears UsedDateSmoking Tobacco: NeverSmokeless Tobacco: NeverCommentsNoSex and Gender InformationValueDate RecordedSex Assigned at BirthNot on fileLegal SqzPdcfoz21/15/2023 11:47 PM EDTGender IdentityNot on fileSexual OrientationNot on filedocumented as of this encounter Last Filed Vital Signs Vital SignReadingTime TakenCommentsBlood Pohdfwbm067/7212/18/2024 10:56 AM EDT Pulse--Temperature--Respiratory Rate--Oxygen Saturation--Inhaled Oxygen Concentration--Mjmulx48.7 kg (125 lb)12/18/2024 10:56 AM HHZYcmorp452.6 cm (5' 4 )12/18/2024 10:56 AM EDTBody Mass Index21.4612/18/2024 10:56 AM EDTdocumented in this encounter Plan of Treatment DateTypeDepartmentCare Team (Latest Contact Info)Ylkyapzwmki41/03/2026 11:00 AM ESTProcedure Visit [facility] [address] [address] Valerio Cantor DO [address] [place] [address] NameTypePriorityAssociated DiagnosesOrder SchedulePap SmearPathology and CytologyRoutine Well woman exam with routine gynecological exam Ordered: 12/18/2024documented as of this encounter Visit Diagnoses Diagnosis Well woman exam with routine gynecological exam Routine gynecological examination Intrauterine device surveillance documented in this encounter
--- OUTSIDE RECORDS SUMMARY | 2024-12-18 13:01 | XMS_ITS | Clinical Summary ---
Author Organization [facility] Address [address] [place] [address] Care Team Providers Care Family Day Care Provider Name Role Phone Unavailable Primary Care Provider Unavailabl e Allergies Active AllergyReactionsCriticalityNoted DateCommentsSpironolactoneRashLow 03/11/2023 Possible allergy; not likely as rash was only on the neck and has had rash since being off of Aldactone Medications MedicationSigDispense QuantityRefillsLast FilledStart DateEnd DateStatus Vit-Fe Fumarate-FA (PNV FOLIC ACID + IRON PO) PNV Folic Acid + IronActive tretinoin (Retin-A) 0.1 % cream APPLY CREAM TOPICALLY TO AFFECTED AREA TEEDOBS7411/30/2023ctive Levonorgestrel 20 MCG/DAY intrauterine device 1 each by Intrauterine route wwkwgbtkuufr51/23/32656611/20/2029ActiveHospital, Clinic, or Other Facility Administered MedicationOrdered DoseRouteFrequencyStart DateEnd DateStatus Levonorgestrel intrauterine device 52 mg Indications:Encounter for IUD iqsvvyovc68 mgIUOnce PRN Xkgdfqkta28/23/2025 11/20/2024Ended Active Problems No known active problems Encounters DateTypeDepartmentCare FjilGddnykaahsc59/21/2025 10:30 AM EDTProcedure Visit [facility] [address] [place] [address] Valerio Cantor, DO Well woman exam with routine gynecological exam; Intrauterine device nikouvsjmhwu78/21/2025amboo flowsheet [facility] [address] [place] [address] Valerio Cantor DO 11/20/2024 1:00 PM EDTProcedure Visit [facility] [address] [place] [address] [place] [address] Valerio Cantor DO Encounter for IUD xynejiddm84/09/8260Vyhfkp42/03/2025 1:50 PM EDTPostpartum Visit [facility] [address] [place] [address] [place] [address] Valerio Cantor DO 6 weeks follow-up ([facility])10/31/2024Telephone [facility] [address] [place] [address] [place] [address] Laura Millan, SOLAR HOT WATER INSTALLER 09/18/2024bstract [facility] [address] [place] [address] [place] [address] Valerio Cantor DO from Last 3 Months Social History Tobacco UseTypesPacks/DayYears UsedDateSmoking Tobacco: NeverSmokeless Tobacco: Never Tobacco Cessation:Counseling Given: Not Answered CommentsNoSex and Gender InformationValueDate RecordedSex Assigned at BirthNot on fileLegal TwnGlblay90/15/2023 11:47 PM EDTGender IdentityNot on file Sexual OrientationNot on file Last Filed Vital Signs Vital SignReadingTime TakenCommentsBlood Dxxuxtda605/7212/18/2024 10:56 AM EDT Pulse--Temperature--Respiratory Rate--Oxygen Saturation--Inhaled Oxygen Concentration--Liqrlm36.7 kg (125 lb)12/18/2024 10:56 AM MSFZwhctg698.6 cm (5' 4 )12/18/2024 10:56 AM EDTBody Mass Index21.4612/18/2024 10:56 AM EDT Plan of Treatment DateTypeDepartmentCare Team (Latest Contact Info)Iwatnnosnle55/03/2026 11:00 AM ESTProcedure Visit [facility] [address] [place] [address] Valerio Cantor DO [address] [place] [id number] Procedures Procedure NamePriorityDate/TimeAssociated DiagnosisCommentsPOCT , URINE Zlczono1411/20/2024 1:11 PM EDT Encounter for IUD insertion CA INSERTION INTRAUTERINE DEVICE ACWRkmemnu03/23/2025 1:00 PM EDT Encounter for IUD insertion from Last 3 Months Results * POCT , urine manually resulted (11/20/2024 1:11 PM EDT)ComponentValue Ref RangeTest MethodAnalysis TimePerformed AtPathologist SignaturePreg Test, UrNegativeNegativeSpecimen (Source)Anatomical Location / LateralityCollection Method / VolumeCollection TimeReceived JfogZalou26/23/2025 1:11 PM EDT Narrative Authorizing ProviderResult TypeResult StatusCoreshey Cantor DOPOINT OF CARE TEST ENTER/EDIT ORDERABLESFinal Result * CA INSERTION INTRAUTERINE DEVICE IUD (11/20/2024 1:00 PM EDT) Narrative Laura Millan LPN - 11/20/2024 1:00 PM EDT Laura Millan LPN 11/20/2024 2:05 PM IUD Insertion Performed by: Valerio Cantor DO Authorized by: Valerio Cantor DO ?? Procedure: IUD insertion ?? Consent obtained by patient, parent, or legal power of united [place] attorney - including discussion of procedure risks and benefits, patient questions answered, and patient education provided: yes ?? risk: reasonably certain the patient is not ?? Immediately prior to procedure a time out was called: no ?? Pelvic exam performed: no ?? Speculum placed in vagina: yes ?? Cervix cleaned and prepped: yes ?? Tenaculum/Allis/Ring Forceps applied to cervix: yes ?? Anesthesia used: no ?? IUD inserted without complications: yes ?? OSM: 52 mg Levonorgestrel 20 MCG/DAY Patient tolerated procedure well: yes ?? Inserted with ultrasound guidance: no ?? Intended removal date: 5 years ?? Insertion comments: IUD Insertion: Patient presents today for an IUD Insertion. Patient is having a Mirena placed and written consent was obtained. Patient was placed in the dorsal lithotomy position with feet in stirrups. A sterile speculum ws placed into the vagina and the cervix was visualized. Cervix was cleansed with betadine and the anterior lip was grasped with ring forceps. Uterus was then gently sounded. New IUD device was gently advanced through the endocervix, toward te uterine fundus. The IUD was then deployed as device was gently removed from the uterus. The IUD strings were cut to the length from external os. All instruments were removed from the vagina. Post-procedure instructions given. All of patients questions were answered and she expressed understanding. Advised to call interim with any questions or concerns. Follow Up: Patient is to return to the office in 4 weeks for a string check. Authorizing ProviderResult TypeResult StatusCorey Sakshi [facility] ORDERABLESFinal Result from Last 3 Months Insurance * Guarantor: Carmelina DukeAccojusta TypeRelation to PatientDate of BirthPhone Billing AddressPersonal/ZnyarbIyac62/20[address] [facility] [place] [address]
--- OUTSIDE RECORDS SUMMARY | 2024-12-18 13:01 | XMS_ITS | Clinical Summary ---
Author Organization [facility] OpenLabel s tem Address [facility] [id number] [address] [place] [address] Care Team Providers Care Adobe Architect Name Role Phone Moncho Arredondo MD Primary Care Provider [phone] Allergies Active AllergyReactionsCriticalityNoted DateCommentsSpironolactoneRashLow 03/11/2023 Possible allergy; not likely as rash was only on the neck and has had rash since being off of Aldactone Medications MedicationSigDispense QuantityRefillsLast FilledStart DateEnd DateStatus tretinoin (RETIN-A) 0.1 % cream Indications:Acne vulgarisApply 1 Application topically nightly. 45 g ctive levonorgestreL (MIRENA) 21 mcg/24hr (up to 8 yrs) 52 mg IUD 1 each by intrauterine route once.Active letrozole (FEMARA) 2.5 mg chemo tablet Take 1 tablet by mouth As directed by OB/GYNDiscontinued (Therapy completed) Active Problems No known active problems Encounters DateTypeDepartmentCare HlecJvfpwmzgtfi78/23/2025 2:30 PM EDTOffice Visit [facility] [address] [place] [address] Lynn Martinez APRN-ANDREW Skin tag of anus (Primary Dx)11/20/2024Travelfrom Last 3 Months Family History RelationNameStatusCommentsFatherAliveMotherAlive Social History Tobacco UseTypesPacks/DayYears UsedDateSmoking Tobacco: NeverSmokeless Tobacco: Never Tobacco Cessation:Counseling Given: No Alcohol UseStandard Drinks/WeekCommentsYes0 (1 standard drink = 0.6 oz pure alcohol)PHQ-2AnswerDate RecordedTotal Qysri438Hunger ScreeningAnswerDate RecordedWithin the past 12 months we worried whether our food would run out before we got money to buy more.Never True11/30/2023Within the past 12 months the food we bought just didn't last and we didn't have money to get more.Never True11/30/2023CommentsUnknownSex and Gender InformationValueDate RecordedSex Assigned at BirthNot on fileLegal EckYftsfo94/20/2024 10:24 AM EDT Gender IdentityNot on fileSexual OrientationNot on file Last Filed Vital Signs Vital SignReadingTime TakenCommentsBlood Sedtrheg182/7411/30/2023 10:32 AM EDT Zyyzu631311/30/2023 10:32 AM EDTTemperature--Respiratory Rate--Oxygen Saturation-- Inhaled Oxygen Concentration--Aiiumk93.2 kg (124 lb)11/20/2024 2:18 PM EDTHeight 163 cm (5' 4.17 )11/20/2024 2:18 PM EDTBody Mass Index21.17011/20/2024 2:18 PM EDT Plan of Treatment Health MaintenanceDue DateLast DoneCommentsDTaP,Tdap and Td Vaccines (1 - Tdap) 2016Pap Smear2018Influenza Gpqpqwn4310/29/2024Depression Screening dult BMI Utpiqgqcx83Tobacco Screening Medical Devices Not on file [place] [address] Care Teams Team MemberRelationshipSpecialtyStart DateEnd Date Moncho Arredondo MD [address] [place] [address], [address] [place] [address] PCP - PfqgrtpQltsonsfae40/2/24
--- OUTSIDE RECORDS SUMMARY | 2024-12-18 13:01 | XMS_ITS | Patient Health Record ---
Author Organization [facility] [place] Address [address] [place] [address] Care Team Providers Care Senior Network Systems Engineer Name Role Phone None, Unknown or Primary Care Provider Unavailab le Reason For Referral No Information Medications Medication SIG (Take, Route, Frequency, Duration) Notes Start Date End Date Status Tylenol 325 MG 1 tablet as needed Orally every 4 hrs ActiveIbuprofen 200 MG1 tablet with food or milk as needed Orally Three times a dayActive Social History Tobacco Use: Social History Observation Description Date Details (start date - stop date) Never Smoker NA - NA Tobacco Use/Smoking Question Answer Notes Patient is a nonsmoker Plan Of Treatment No Information Insurance Providers Payer Name Payer Address Payer Phone Subscriber Number Group Number Insured Name Patient Relationship to Insured Coverage Start Date Coverage End Date [employer] PPO PLUS LOCAL PLAN [address] [place] [address] [phone] [id number] Olegario Amin Child - Insured does not have Financial Responsibility (includes legally adopted child) 2 Medical (General) History Medical History History ICD Code migraine headaches Surgical History Surgery Date(Month/Year)
--- OUTSIDE RECORDS SUMMARY | 2024-12-18 13:01 | XMS_ITS | Encounter Summary ---
Author Organization [facility] Address [address] [facility] [place] [address] Care Team Providers Care Facilities Coordinator Name Role Phone Unavailable Primary Care Provider Unavailabl e Encounter Details DateTypeDepartmentCare Team (Latest Contact Info)Zuyocvgoqao56/21/2025amboo flowsheet [facility] [address] [place] [address] Valerio Cantor DO [address] [place], [facility] Social History Tobacco UseTypesPacks/DayYears UsedDateSmoking Tobacco: NeverSmokeless Tobacco: NeverCommentsNoSex and Gender InformationValueDate RecordedSex Assigned at BirthNot on fileLegal BwgJwhgdl33/15/2023 11:47 PM EDTGender IdentityNot on fileSexual OrientationNot on filedocumented as of this encounter Plan of Treatment DateTypeDepartmentCare Team (Latest Contact Info)Jxbeofuazxy88/03/2026 11:00 AM ESTProcedure Visit [facility] [address] [place] [address] Valerio Cantor DO [address] [place] [address] documented as of this encounter Visit Diagnoses Not on filedocumented in this encounter
--- OUTSIDE RECORDS SUMMARY | 2024-12-18 13:10 | XMS_ITS | CCD ---
Author Organization [facility] Care Team Providers Care Detail Technician Name Role Phone POOL, DORCAS Gonzalez Referring Unavailable MALCOM GUNTER Primary Care Unavailable Malcom Gunter Primary Care Provider MALCOM GUNTER Attending Unavailab le JANI, MALCOM [...] Unavailable SAKSHI ., DR PEARCE Attending Unavailable PHILEBER, DR SOY Suazo Consulting Unavailable SAKSHI ., DR PEARCE Admitting Unavailable REQUEST, DR NONE LISTED Primary Care Unavaila ble SAKSHI ., DR PEARCE Consulting Unavailable SAKSHI ., DR PEARCE Attending Unavailable LILIANAER, DR SOY Suazo Consulting Unavailable Unavailable Primary Care Provider UnavailPa Soto MD Primary Care Provider Pa Dasilva MD Primary Care Provider SAKSHI, RAMSES Attending Unavailable SAKSHI, RAMSES Attending Unavailable SAKSHI, RAMSES Attending Unavailable SAKSHI, RAMSES Attending Unavailable SAKSHI, RAMSES Attending Unavailable SAKSHI, RAMSES Attending Unavailable SAKSHI, RAMSES Referring Unavailable DIANA SAMUEL Attending Unavailable SAKSHI, RAMSES Attending Unavailable SAKSHI, RAMSES Attending Unavailable SAKSHI, RAMSES Attending Unavailable SAKSHI, RAMSES Attending Unavailable SAKSHI, RAMSES Attending Unavailable PA DASILVA Attending Unavailable MATTHIEU HU Attending Unavailable PA DASILVA Referring Unavailable PA DASILVA Primary Care Unavailable Allergies Allergy ClassificationReported Allergen(s)Allergy TypeDate of OnsetReaction(s) Facility (20 sources)Spironolactone; Translations: [SPIRONOLACTONE]Drug Ykvocbo70-19-2338 [facility] (1 source)SpironolactoneDrug Hteyaye39-58-8019QpmmQoeKiouxd Health System Medications Current Medications MedicationDrug Class(es)DatesSig (Normalized)Sig (Original)168 hr ethinyl estradiol 0.80747 mg/hr / norelgestromin 0.66527 mg/hr transdermal system (1 source)Progestin, EstrogenStart: 39-35-1613tndfblyfspkynd-ethinyl estradiol (ORTHO EVRA) 150-35 MCG/24HR Indications: DUB (dysfunctional uterine bleeding) , Acne cystica Place 1 patch onto the skin every 7 days 12 patch 4 05/08/2019 Activeibuprofen 600 mg oral tablet (1 source)Nonsteroidal Anti-inflammatory DrugStart: 25-42-1539paeo 1 tablet by mouth three times daily as needed for painibuprofen (ADVIL;MOTRIN) 600 MG tablet Indications: Dysmenorrhea Take 1 tablet by mouth 3 times daily as needed for Pain 90 tablet 2 05/08/2019 Activeondansetron 4 mg disintegrating oral tablet (2 sources)Serotonin-3 Receptor AntagonistStart: 02-14-2024 End: 50-31-3166dmzo 1 tablet by mouth every six hours as needed for nausea and vomiting and nausea and nauseaondansetron ODT (Zofran-ODT) 4 MG disintegrating tablet Indications: Nausea Take 1 tablet (4 mg) bymouth every 6 (six) hours if needed for nausea or vomiting 30 tablet 3 02/14/2024 03/15/2024 ActivePrenatal Vit-Fe Fumarate-FA (PNV FOLIC ACID + IRON PO) (20 sources) Vit-Fe Fumarate-FA (PNV FOLIC ACID + IRON PO) PNV Folic Acid + Iron Activetretinoin 1 mg/ml topical cream (20 sources)RetinoidStart: 85-56-0682lqpsasnad (Retin-A) 0.1 % cream APPLY CREAM TOPICALLY TO AFFECTED AREA NIGHTLY 11/30/2023 ActiveStart: 03-11-2023 End: 77-23-3291ldwgoyoez (Retin-A) 0.05 % cream Indications: Irritant contact dermatitis, unspecified trigger Apply to the face qPM 45 g 3 03/11/2023 07/25/2024 Discontinued Completed/Discontinued Medications MedicationDrug Class(es)DatesSig (Normalized)Sig (Original)letrozole 2.5 mg oral tablet (2 sources)Aromatase InhibitorStart: 11-14-2023 End: 52-78-9991gkywyqbwp (FEMARA) 2.5 mg chemo tablet Take 1 tablet by mouth As directed by WRINGER MACHINE OPERATOR 11/14/2023 11/20/2024 Discontinued (Therapy completed) levonorgestrel 0.118464 mg/hr intrauterine system (9 sources)Progestin, Progestin-containing Intrauterine DeviceStart: 11-20-2024 End: 89-35-4805Lpuuuaitsacuyu intrauterine device 52 mgStart: 11-20-2024 End: 43-82-016893 mg, Intrauterine, Once PRN Procedure, Starting on Tue11/20/24 at 1300, For 1 doseStart: 01-27-2022 End: 75-97-9299Mflbqfcbnrbquo (Mirena, 52 MG,) 20 MCG/DAY intrauterine device 01/27/2022 11/09/2023 Discontinued (Therapy completed)levonorgestreL (MIRENA) 21 mcg/24hr (up to 8 yrs) 52 mg IUD 1 each by intrauterine route once. Active magnesium oxide 400 mg oral tablet (20 sources)Start: 03-12-2024 End: 31-38-1152uiha 1 tablet by mouth once dailyMAGnesium-Oxide 400 (240 Mg) MG tablet Take 400 mg by mouth Daily 03/12/2024 10/31/2024 Discontinued End: 99-08-1866Zrtgtwpml Oxide -Mg Supplement 400 MG capsule 1 (one) time each day at the same time 11/09/2023 Discontinued (Therapy completed)omeprazole 20 mg delayed release oral capsule (9 sources)Proton Pump InhibitorStart: 09-04-2024 End: 91-29-2046sjxm 1 capsule by mouth before mealtimeomeprazole (PriLOSEC) [address] capsule Indications: Heartburn during in third trimester ([facility]) Take 1 capsule (20 mg) by mouth in the morning. Take before meals. Do not crush or chew. 30capsule 11 09/04/2024 10/31/2024 Discontinuedspironolactone 100 mg oral tablet (3 sources)Aldosterone AntagonistStart: 12-17-2022 End: 00-06-0724zkis 1 tablet by mouth once dailyspironolactone (Aldactone) 100 MG tablet Take 100 mg by mouth Daily 12/17/2022 11/09/2023 Discontinued (Side effects) Problems Active Problems Problem ClassificationProblemDateDocumented DateEpisodic/ChronicContraceptive and procreative management (1 source)Patient encounter status; Translations: [Encounter for insertion of intrauterine contraceptive device]44-35-5911EvkqbzfkOrkjiu infertility (2 sources)Female infertility; Translations: [Female infertility, unspecified] 60-94-7325PoddwlyGmllsmgffty (4 sources)Hemorrhoids; Translations: [Unspecified hemorrhoids]Onset: 11-20-2024 89-82-3225GmicziaxWhhcpctuqfdzb and screening for infectious disease (3 sources)Encounter for screening for human papillomavirus (HPV); Translations: [Exposure to sexually transmissible disorder]Onset: 709690-39-5156Qeqmhxym Menstrual disorders (5 sources)Irregular menstruation, unspecified; Translations: [Missed period] Onset: 90-96-2435FhqijfuKumix complications of (2 sources) size does not accord with dates; Translations: [Uterine size- date discrepancy, unspecified trimester]52-51-8992UvkepzirTjiag complications of (2 sources)Heartburn; Translations: [Other specified related conditions, third trimester]73-47-2831XvjyszgmJkrem endocrine disorders (2 sources)Polycystic ovary syndrome; Translations: [Polycystic ovarian syndrome]55-01-1399IiwwvtbQuief female genital disorders (2 sources)Abnormal uterine bleeding; Translations: [Abnormal uterine and vaginal bleeding, unspecified]82-28-4038JscnakpJmfrr female genital disorders (2 sources)Vaginal discharge; Translations: [Other specified noninflammatory disorders of vagina]59-57-7218WjhrbwqdSjfee and delivery including normal (20 sources)Encounter for routine follow-up; Translations: [Encounter for supervision of normal first , third trimester]Onset: 11-25-2021 EpisodicOther screening for suspected conditions (not mental disorders or infectious disease) (18 sources)Encounter for screening for malignant neoplasm of cervix; Translations: [Encounter for screening for Streptococcus B]Onset: 87-57-5768HjixludpJpgbtlvp codes; unclassified (2 sources)Gestation period, 12 weeks; Translations: [12 weeks gestation of ]72-99-0985KlzclksfOocpgpqx codes; unclassified (2 sources)Gestation period, 16 weeks; Translations: [16 weeks gestation of ]72-26-7672AwyphcujCekaxcqb codes; unclassified (2 sources)Gestation period, 20 weeks; Translations: [20 weeks gestation of ]02-39-1336BylpdpajHyxvdbhz codes; unclassified (2 sources)Gestation period, 24 weeks; Translations: [24 weeks gestation of ]52-48-3511MbwyrqsaOhnzshjg codes; unclassified (2 sources)Gestation period, 27 weeks; Translations: [27 weeks gestation of ]13-86-4517RvzwldvqEjshxemg codes; unclassified (2 sources)Gestation period, 30 weeks; Translations: [30 weeks gestation of ]25-68-5710BqyfzwlnHgyuryqv codes; unclassified (2 sources)Gestation period, 31 weeks; Translations: [31 weeks gestation of ]30-78-0574HqptoyzgOrljrgbj codes; unclassified (2 sources)Gestation period, 34 weeks; Translations: [34 weeks gestation of ]65-66-2402ZylapebhRflleujf codes; unclassified (2 sources)Gestation period, 35 weeks; Translations: [35 weeks gestation of ]93-02-1171ZpxtljxmZjjjpasn codes; unclassified (2 sources)Gestation period, 36 weeks; Translations: [36 weeks gestation of ]09-29-3130PxwhxghvPgaiuxljbeis (2 sources)Patient encounter status; Translations: [Screen for STD (sexually transmitted disease)]Unclassified (1 source)CONTACT W/AND (SUSP) EXPOS COVID-19; Translations: [CONTACT W/AND (SUSP) EXPOS COVID-19]Onset: 83-76-7974Tfnpsfwcliik (1 source)new patientOnset: 11-30-2023 Past or Other Problems Problem ClassificationProblemDateDocumented DateEpisodic/ChronicCardiac dysrhythmias (2 sources)Palpitations; Translations: [Palpitations]Onset: 250133-48-2356 EpisodicEarly or threatened labor (4 sources)False labor at or after 37 completed weeks of gestation; Translations: [FALSE LABOR AT/AFTR 37 CMPLWK GEST]Onset: 91-34-3428HbmkdkoyRpsm disorders (2 sources)Mood disordersOnset: 293432-09-7210DQ-nuznwcf trauma to perineum and vulva (1 source)First degree perineal laceration during delivery; Translations: [FIRST DEG PERINEAL LAC DUR DELIV]Onset: 61-90-7895LleipfnzOnfsq female genital disorders (4 sources)Other specified noninflammatory disorders of vagina; Translations: [OTH SPEC NONINFLAMMATORY D/O VAGINA]Onset: 05-69-7402BpdcsyfgGdxos skin disorders (1 source)Acne vulgaris; Translations: [Acne vulgaris]83-05-8935MiwyuvkbHrdsq skin disorders (1 source)Acne vulgaris; Translations: [Acne vulgaris]Onset: 14-29-1715Xcotgzds Residual codes; unclassified (1 source)39 weeks gestation of ; Translations: [39 WEEKS GESTATION OF ]Onset: 06-97-9684KethzlmjLXDLZMQ: Highlighted row has been ruled out! Unclassified (20 sources)No known active zvmynoez36-04-8754 Results Test NameValueInterpretationReference RangeFacilityHCG ( test) Ql (U)on 37-57-7108Pfvoltnmgjaoss and review of laboratory resultsNormalNOMS Healthcare Preg Test, UrNegativeNegativeNOMS HealthcareNOMS HealthcareIUD Insertionon 52-46-2157DrwwnLaura Millan LPN 11/20/2024 2:05 PM IUD Insertion Performed by: Ramses Cantor DO Authorized by: Ramses Cantor DO Procedure: IUD insertion Consent obtained by patient, parent, or legal power of consumer attorney - including discussion of procedure risks and benefits, patient questions answered, and patient education provided: yes risk: reasonably certain the patient is not Immediately prior to procedure a time out was called: no Pelvic exam performed: no Speculum placed in vagina: yes Cervix cleaned and prepped: yes Tenaculum/Allis/Ring Forceps applied to cervix: yes Anesthesia used: no IUD inserted without complications: yes OSM: 52 mg Levonorgestrel 20 MCG/DAY Patient tolerated procedure well: yes Inserted with ultrasound guidance: no Intended removal date: 5 years Insertion comments: IUD Insertion: Patient presents today [...] office in 4 weeks for a string check.[facility]inghamALL CBC WITH AUTO DIFFon 88-66-5489LXDJICOJR ABSOLUTE DNNL1TWIRRanken Jordan Pediatric Specialty HospitalBasophils/100 WBC (Bld)0.3 %0.2 - 2.0 %[facility] HospitalEosinophils/100 WBC (Bld)0.8 %Low0.9 - 7.0 %[facility]'s HospitalErythrocyte distribution width (RBC) [Ratio]12.9 %11.0 - 15.0 %[facility] HospitalHematocrit (Bld) [Volume fraction]29.4 %Low36.0 - 48.0 %[facility] HospitalHemoglobin (Bld) [Mass/Vol]9.8 g/dLLow12.0 - 16.0 g/dLSt. Louis Children's HospitalIMMATURE GRANULOCYTES ABS AUTO0.06[facility] Immature granulocytes/100 WBC (Bld)0.6 %High0.0 - 0.5 %[facility] Interpretation and review of laboratory resultsAbnormalSt. [facility] LYMPHOCYTES ABSOLUTE AUTO1.8NORanken Jordan Pediatric Specialty HospitalLymphocytes/100 WBC (Bld)16.8 %Low 20.5 - 60.0 %[facility] (RBC) [Entitic mass]29.3 pg26.7 - 34.0 pgSSM RehabHC (RBC) [Mass/Vol]33.3 g/dL29.9 - 35.2 g/dLSSM RehabV (RBC) [Entitic vol]88 fL81.0 - 99.0 fLSt. Louis Children's HospitalMONOCYTES ABSOLUTE AUTO0.8NORanken Jordan Pediatric Specialty HospitalMonocytes/100 WBC (Bld)7.7 %1.7 - 12.0 %[facility] HospitalNEUTROPHILS ABSOLUTE AUTO7.7HighSt. Louis Children's HospitalNeutrophils/100 WBC (Bld)73.8 %43.0 - 75.0 % [facility]'s HospitalPlatelet mean volume (Bld) [Entitic vol]9.6 fL9.5 - 13.5 fLNOMS HealthcareTB EO #0.1NOMS HealthcareTB [id number] HealthcareTOBEY HOSPITAL RBC3.34LowNOMS HealthcareTB WBC10.4NOMS HealthcareCLINISYNCNOKLAHOMA FORENSIC CENTER [facility]A HealthcareAMNISUREon 14-93-4462Pwvmlyfxyjbgmq and review of laboratory resultsAbnormalNOSaint Mary's Health Center AMNISUREPositiveAbnormalNEGATIVENOHospital Sisters Health System [facility] Urinalysis macro (dipstick) panel (U)on 96-73-0925Utqamuwng, UANegativeNegative - 4(70) +++ mg/dLNOMS HealthcareBlood, UANegativeNegative - 50 Mika/mcLNOMS HealthcareClarity, UAClearNOMS HealthcareColor, UAYellowNOMS HealthcareGlucose, UANegativeNegative - 2000(110) ++++ mg/dLNOMS HealthcareInterpretation and review of laboratory resultsNormalNOMS HealthcareKetones, UANegativeNegative - 160(16) ++++ mg/dLNOMS HealthcareLeukocytes, UANegativeNegative - 500+++ Meena/mcL NOMS HealthcareNitrite, UANegativeNegative - PositiveNOMS HealthcarepH, UA6.55 - 9NOMS HealthcareProtein, UANegativeNegative - 2000(20) ++++ mg/dLNOMS Healthcare Spec Grav, UA1.021 - 1.03NOMS HealthcareUrobilinogen, UA0.20.2 - 12 mg/dLNOMS HealthcareNOMS HealthcareUrinalysis macro (dipstick) panel (U)on 09-04-2024 Bilirubin, UANegativeNegative - 4(70) +++ mg/dLNOMS HealthcareBlood, UANegative Negative - 50 Mika/mcLNOMS HealthcareClarity, UAClearNOMS HealthcareColor, UA YellowNOMS HealthcareGlucose, UANegativeNegative - 2000(110) ++++ mg/dLNOMS HealthcareInterpretation and review of laboratory resultsNormalNOMS Healthcare Ketones, UANegativeNegative - 160(16) ++++ mg/dLNOMS HealthcareLeukocytes, UA NegativeNegative - 500+++ Meena/mcLNOMS HealthcareNitrite, UANegativeNegative - PositiveNOMS HealthcarepH, UA75 - 9NOMS HealthcareProtein, UANegativeNegative - 1999(20) ++++ mg/dLNOMS HealthcareSpec Grav, UA1.011 - 1.03N[facility] Urobilinogen, UA0.20.2 - 12 mg/dLNOMS HealthcareNOMS HealthcareUrinalysis macro (dipstick) panel (U)on 08-73-7309Rmzauyshp, UANegativeNegative - 4(70) +++ mg/dL NOMS HealthcareBlood, UANegativeNegative - 50 Mika/mcLNOMS HealthcareClarity, UA ClearNOMS HealthcareColor, UAYellowNOMS HealthcareGlucose, UANegativeNegative - 2000(110) ++++ mg/dLNOMS HealthcareInterpretation and review of laboratory resultsNormalNOMS HealthcareKetones, UANegativeNegative - 160(16) ++++ mg/dLNOMS HealthcareLeukocytes, UATraceNegative - 500+++ Meena/mcLNOMS HealthcareNitrite, UA NegativeNegative - PositiveNOMS HealthcarepH, UA7.55 - 9NOMS HealthcareProtein, UANegativeNegative - 2000(20) ++++ mg/dLNOMS HealthcareSpec Grav, UA1.021 - 1.03 NOMS HealthcareUrobilinogen, UA0.20.2 - 12 mg/dLNOMS HealthcareNOMS HealthcareUS OB FOLLOW UP TRANSABDOMINAL APPROACHon 08-20-5176YK OB FOLLOW UP TRANSABDOMINAL APPROACHEXAM: US OB FOLLOW UP TRANSABDOMINAL APPROACH HISTORY: [...] PHD at 08-Aug-2024 08:23:33 AM [facility]eleradiologyNormalNot AvailableComment on above:Order Comment: US OB SCAN FOR GROWTH Estimated Date of Delivery: 10/03/24 Gestational Age as of 07/10/2024: 25i2dXzravznssl macro (dipstick) panel (U)on 18-56-1178Hobyvsyyf, UANegativeNegative - 4(70) +++ mg/dLNOMS HealthcareBlood, UANegativeNegative - 50 Mika/mcLNOMS HealthcareClarity, UAClearNOMS Healthcare Color, UAYellowNOMS HealthcareGlucose, UANegativeNegative - 1999(110) ++++ mg/dL NOMS HealthcareInterpretation and review of laboratory resultsNormalNOMS HealthcareKetones, UANegativeNegative - 160(16) ++++ mg/dLNOMS Healthcare Leukocytes, UAPositiveNegative - 500+++ Meena/mcLNOMS HealthcareNitrite, UA NegativeNegative - PositiveNOMS HealthcarepH, UA8.55 - 9NOMS HealthcareProtein, UATraceNegative - 2000(20) ++++ mg/dLNOMS HealthcareSpec Grav, UA1.0151 - 1.03 NOMS HealthcareUrobilinogen, UA0.20.2 - 12 mg/dLNOMS HealthcareNOMS Healthcare Urinalysis macro (dipstick) panel (U)on 77-61-4380Ynaqepirz, UANegativeNegative - 4(70) +++ mg/dLNOMS HealthcareBlood, UANegativeNegative - 50 Mika/mcLNOMS HealthcareClarity, UAClearNOMS HealthcareColor, UAYellowNOMS HealthcareGlucose, UANegativeNegative - 2000(110) ++++ mg/dLNOMS HealthcareInterpretation and review of laboratory resultsNormalNOMS HealthcareKetones, UANegativeNegative - 160(16) ++++ mg/dLNOGA HealthcareLeukocytes, UANegativeNegative - 500+++ Meena/mcL NOMS HealthcareNitrite, UANegativeNegative - PositiveNOMS HealthcarepH, UA65 - 9 NOMS HealthcareProtein, UANegativeNegative - 2000(20) ++++ mg/dLNOMS Healthcare Spec Grav, UA1.031 - 1.03NOMS HealthcareUrobilinogen, UA1.00.2 - 12 mg/dLNOMS HealthcareNOMS HealthcareUrinalysis macro (dipstick) panel (U)on 07-10-2024 Bilirubin, UANegativeNegative - 4(70) +++ mg/dLNOGA HealthcareBlood, UANegative Negative - 50 Mika/mcLNOGA HealthcareClarity, UAClearNOMS HealthcareColor, UA OrangeNOMS HealthcareGlucose, UANegativeNegative - 2000(110) ++++ mg/dLNOGA HealthcareInterpretation and review of laboratory resultsNormalSt. [facility] Ketones, UANegativeNegative - 160(16) ++++ mg/dLNOMS HealthcareLeukocytes, UA NegativeNegative - 500+++ Meena/mcLNOGA HealthcareNitrite, UANegativeNegative - PositiveNOGA HealthcarepH, UA8.55 - 9NOGA HealthcareProtein, UANegativeNegative - 2000(20) ++++ mg/dLNOMS HealthcareSpec Grav, UA1.0151 - 1.03NO[facility] Healthcare Urobilinogen, UA0.20.2 - 12 mg/dLNOGA HealthcareNOMS HealthcareALL CBC WITH AUTO DIFFon 69-31-0663GRFHKBLSN ABSOLUTE ADUM3PPWA HealthcareBasophils/100 WBC (Bld) 0.3 %0.2 - 2.0 %NOMS HealthcareEosinophils/100 WBC (Bld)1.1 %0.9 - 7.0 %NOM HealthcareErythrocyte distribution width (RBC) [Ratio]12.3 %11.0 - 15.0 %[facility]OMS [facility]. Elizabeth HospitalHematocrit (Bld) [Volume fraction]36.6 %36.0 - 48.0 %[facility] Hemoglobin (Bld) [Mass/Vol]12.8 g/dL12.0 - 16.0 g/dLSt. Louis Children's HospitalIMMATURE GRANULOCYTES ABS AUTO0.03NOFreeman Orthopaedics & Sports Medicinemature granulocytes/100 WBC (Bld)0.3 % 0.0 - 0.5 %[facility]'s HospitalInterpretation and review of laboratory results AbnormalSt. Louis Children's HospitalLYMPHOCYTES ABSOLUTE AUTO1.5NORanken Jordan Pediatric Specialty Hospital Lymphocytes/100 WBC (Bld)16.8 %Low20.5 - 60.0 %[facility] (RBC) [Entitic mass]33.4 pg26.7 - 34.0 pgSSM RehabHC (RBC) [Mass/Vol]35 g/dL29.9 - 35.2 g/dLSSM RehabV (RBC) [Entitic vol]95.6 fL81.0 - 99.0 fLSt. Louis Children's HospitalMONOCYTES ABSOLUTE AUTO0.6[facility] HospitalMonocytes/100 WBC (Bld)6.8 % 1.7 - 12.0 %[facility] HospitalNEUTROPHILS ABSOLUTE AUTO6.7HighSt. Louis Children's Hospital Neutrophils/100 WBC (Bld)74.7 %43.0 - 75.0 %[facility]'s HospitalPlatelet mean volume (Bld) [Entitic vol]9.7 fL9.5 - 13.5 fLSt. Louis Children's HospitalTBH EO #0.1N[facility]S [facility] TBH [id number] of Missouri Children's Hospital RBC3.83LowNORanken Jordan Pediatric Specialty HospitalTB OXE2DBWWRanken Jordan Pediatric Specialty Hospital CLINISYNCOREM COMMUNITY [facility] HealthcareGLUCOSE 1 HOURon 17-47-4503Lipnvyt [Mass/Vol]87 mg/dL NINF - 130 mg/dLSt. Louis Children's HospitalCLINISYNCNOMS HealthcareUS OB LIMITED 1+ FETUSES on 78-70-3085WA OB LIMITED 1+ FETUSESEXAM: US OB LIMITED 1+ FETUSES HISTORY: Follow [...] II, MD, PHD at 16-Jun-2024 06:46:29 PM [facility]eleradiologyNormalNot AvailableComment on above:Order Comment: US OB INCOMPLETE ANATOMY W US OB TRANSVAGINAL Estimated Date of Delivery: 10/03/24 Gestational Age as of 05/17/2024: 80c2gArzdgruoll macro (dipstick) panel (U)on 55-84-4517Lxjdromqo, UANegativeNegative - 4(70) +++ mg/dLNOMS HealthcareBlood, UANegativeNegative - 50 Mika/mcLNOMS HealthcareClarity, UAClearNOMS Healthcare Color, UAYellowNOMS HealthcareGlucose, UANegativeNegative - 2000(110) ++++ mg/dL NOMS HealthcareInterpretation and review of laboratory resultsNormalNOMS HealthcareKetones, UANegativeNegative - 160(16) ++++ mg/dLNOMS Healthcare Leukocytes, UANegativeNegative - 500+++ Meena/mcLNOMS HealthcareNitrite, UA NegativeNegative - PositiveNOMS HealthcarepH, UA75 - 9NOMS HealthcareProtein, UA NegativeNegative - 2000(20) ++++ mg/dLNOMS HealthcareSpec Grav, UA1.021 - 1.03 NOMS HealthcareUrobilinogen, UA0.20.2 - 12 mg/dLNOMS HealthcareNOMS Healthcare Urinalysis macro (dipstick) panel (U)on 93-02-0698Krivugafk, UANegativeNegative - 4(70) +++ mg/dLNOMS HealthcareBlood, UANegativeNegative - 50 Mika/mcLNOMS HealthcareClarity, UAClearNOMS HealthcareColor, UAAmberNOMS HealthcareGlucose, UANegativeNegative - 2000(110) ++++ mg/dLNOMS HealthcareInterpretation and review of laboratory resultsAbnormalNOMS HealthcareKetones, UANegativeNegative - 160(16) ++++ mg/dLNOMS HealthcareLeukocytes, UANegativeNegative - 500+++ Meena/mcLNOMS HealthcareNitrite, UANegativeNegative - PositiveNOMS HealthcarepH, UA75 - 9NOMS HealthcareProtein, UATraceNegative - 1999(20) ++++ mg/dLNOGA HealthcareSpec Grav, UA1.021 - 1.03NOGA HealthcareUrobilinogen, UA0.20.2 - 12 mg/dLNOGA HealthcareNOMS HealthcareUS OB 14+ WEEKS ANATOMY SCANon 30-45-5837LZ OB 14+ WEEKS ANATOMY SCANEXAM: US OB 14+ WEEKS ANATOMY SCAN HISTORY: [...] II, MD, PHD at 18-May-2024 08:29:54 PM [facility]eleradiologyNormalNot AvailableComment on above:Order Comment: US OB ANATOMY SINGLE W US OB CERVICAL LENGTH Estimated Date of Delivery: 10/03/24 Gestational Age as of 04/18/2024: 64r8pLocntpqtgs macro (dipstick) panel (U)on 77-16-3817Lanbzebde, UANegativeNegative - 4(70) +++ mg/dLNOMS HealthcareBlood, UANegativeNegative - 50 Mika/mcLNOMS HealthcareClarity, UAClearNOMS Healthcare Color, UAYellowNOMS HealthcareGlucose, UANegativeNegative - 2000(110) ++++ mg/dL NOMS HealthcareInterpretation and review of laboratory resultsNormalNOMS HealthcareKetones, UANegativeNegative - 160(16) ++++ mg/dLNOMS Healthcare Leukocytes, UANegativeNegative - 500+++ Meena/mcLNOMS HealthcareNitrite, UA NegativeNegative - PositiveNOMS HealthcarepH, UA5.55 - 9NOMS HealthcareProtein, UANegativeNegative - 2000(20) ++++ mg/dLNOMS HealthcareSpec Grav, UA1.031 - 1.03 NOMS HealthcareUrobilinogen, UA0.20.2 - 12 mg/dLNOMS HealthcareNOMS Healthcare Urinalysis macro (dipstick) panel (U)on 58-07-5476Xzhenykcg, UANegativeNegative - 4(70) +++ mg/dLNOMS HealthcareBlood, UANegativeNegative - 50 Mika/mcLNOMS HealthcareClarity, UAClearNOMS HealthcareColor, UAYellowNOMS HealthcareGlucose, UANegativeNegative - 2000(110) ++++ mg/dLNOMS HealthcareInterpretation and review of laboratory resultsNormalNOMS HealthcareKetones, UANegativeNegative - 160(16) ++++ mg/dLNOMS HealthcareLeukocytes, UANegativeNegative - 500+++ Meena/mcL NOMS HealthcareNitrite, UANegativeNegative - PositiveNOMS HealthcarepH, UA65 - 9 NOMS HealthcareProtein, UANegativeNegative - 1999(20) ++++ mg/dLNOGA Healthcare Spec Grav, UA1.0251 - 1.03NOMS HealthcareUrobilinogen, UA0.20.2 - 12 mg/dLNOMS HealthcareNOMS HealthcareBOX TESTon 95-89-7817IBQ TEST SENT OUTUNITYNOGA MtcyxxefljFEB5CFTCQMNYP QqmxklwwseGHY91/10/25NOGA HealthcareUNITY BOX CLINISYNCNOMS HealthcareHCG ( test) Ql (U)on 23-91-9685Fuhutfbcxsdcxf and review of laboratory resultsAbnormalNOMS HealthcarePreg Test, UrPositive NegativeNOGA HealthcareNOMS HealthcareUS OB TRANSVAGINALon 34-69-7273SE OB TRANSVAGINALTITLE OF EXAM: US OB TRANSVAGINAL REASON FOR EXAM: [id number]&NASEEM&RADIOLOGY GR TECHNIQUE: Grayscale, color, and M-mode Doppler [...] x 4.2 cm (9 weeks, 2 days). [place] rump length is 2.1-2.2 cm (8 weeks, 5-6 days). heart rate is 172 bpm.No appreciable subchorionic hemorrhage or other abnormality. Cervical [...] electronically signed and approved by the interpreting radiologist.NormalNot AvailableUrinalysis macro (dipstick) panel (U)on 87-47-3867Ficvtmlqq, UANegativeNegative - 4(70) +++ mg/dLNOGA HealthcareBlood, UANegativeNegative - 50 [facility] HealthcareClarity, UAClearNOGA Healthcare Color, UAYellowNOGA HealthcareGlucose, UANegativeNegative - 2000(110) ++++ mg/dL [facility] HealthcareInterpretation and review of laboratory resultsNormalNOGA HealthcareKetones, UANegativeNegative - 160(16) ++++ mg/dLSt. [facility] Leukocytes, UANegativeNegative - 500+++ Meena[facility] HealthcareNitrite, UA NegativeNegative - PositiveNOGA HealthcarepH, UA65 - 9NOGA HealthcareProtein, UA NegativeNegative - 2000(20) ++++ mg/dL[facility] HealthcareSpec Grav, UA1.021 - 1.03 [facility] HealthcareUrobilinogen, UA1.00.2 - 12 mg/dLMetropolitan [facility] Healthcare Cytology Cervical or vaginal smear or scraping studyon [id number]. Louis Children's Hospital PAP ACOG PANEL 2: 21 to 29on 06-03-2022..NormalThe [facility] Health SystemComment on above:Performed By: #### [id number] #### [facility] [address] [place] [address] Dr. Brad HaysAge Gdln ACOG Xljiowk16-10NvwcfoXwdPomerene HospitalComment on above:Performed By: #### [id number] #### [facility] [address] [place] [address] Dr. Brad HaysDIAGNOSIS:CommentNoPomerene HospitalComment on above: Result Comment: NEGATIVE FOR INTRAEPITHELIAL LESION OR MALIGNANCY.Performed By: #### [id number] #### [facility] [address] [place] [address] Dr. Brad HaysMethodology:CommentNoPomerene HospitalComment on above: Result Comment: This liquid based ThinPrep(R) pap test was screened with the use of an image guided system.Performed By: #### [id number] #### [facility] [address] [place] [address] Dr. Brad HaysNote:CommentMercy Health Clermont Hospital on above:Result Comment: The Pap smear is a screening test designed to aid in the detection of premalignant and malignant conditions of the uterine cervix. It is not a diagnostic procedure and should not be used as the sole means of detecting cervical cancer. Both false-positive and false-negative reports do occur. .Performed By: #### [id number] #### [facility] [address] [place] [address] Dr. Brad HaysPerformed by:CommentMercy Health Clermont Hospital on above: Result Comment: Tiffani Maxwell, Scroll Machine Operator (ASCP)Performed By: #### [id number] #### [place] [address] [address] Brad HaysReflex Criteria:[facility] on above:Result Comment: The HPV DNA reflex criteria were not met with this specimen result therefore, no HPV testing was performed. .Performed By: #### [id number] #### [place] [address] [address] Brad HaysSpecimen adequacy:[facility] on above:Result Comment: Satisfactory for evaluation. Endocervical and/or squamous metaplastic cells (endocervical component) are present.Performed By: #### [id number] #### [facility] [address] [place] [address] Dr. Brad HaysSantana AUTO DIFFon [id number] #0.0 103/ulNormal0.0-0.1The [facility] Health SystemComment on above:Performed By: #### CBC #### [place] [address] [address] Brad HaysBasophils/100 WBC (Bld)0.2 %Normal0.2-2.0[facility] Comment on above:Performed By: #### CBC #### [facility] [address] [place] [address] Dr. Brad Miranda #0.1 103/ulNormal0.0-0.7The [facility] Health SystemComment on above: Performed By: #### CBC #### [facility] [address] [place] [address] Dr. Brad Luiosinophils/100 WBC (Bld)0.4 %Critically low0.9-7.0The [facility] Health SystemComment on above:Performed By: #### CBC #### [facility] [address] [place] [address] Dr. Brad Luirythrocyte distribution width (RBC) [Ratio]13.2 %Spxttr77.0-15.0 The [facility] Health SystemComment on above:Performed By: #### CBC #### [facility] [address] [place] [address] Dr. Brad HaysHematocrit (Bld) [Volume fraction]32.9 %Critically low36.0-48.0 The [facility] SystemComment on above:Performed By: #### CBC #### [facility] [address] [place] [address] Dr. Brad HaysHemoglobin (Bld) [Mass/Vol]10.5 g/dLCritically low12.0-16.0The [facility] Hospitalment on above:Performed By: #### CBC #### [facility] [address] [place] [address] Dr. Brad Weems #0.05 10e3/ulCritically high0.00-0.03The [facility] Comment on above:Performed By: #### CBC #### [facility] [address] [place] [address] Dr. Brad Weems %0.4 %Normal0.0-0.5The [facility] Health SystemComment on above: Performed By: #### CBC #### [facility] [address] [place] [address] Dr. Brad Rudolph #2.2 103/ulNormal1.2-3.8The [facility] SystemComment on above:Performed By: #### CBC #### [facility] [address] [place] [address] Dr. Brad Hudsonmphocytes/100 WBC (Bld)16.3 %Critically low20.5-60.0The [facility] Health SystemComment on above:Performed By: #### CBC #### [facility] [address] [place] [address] Dr. Brad HaileUAL DIFF REQNONormalThe [facility] Health SystemComment on above: Performed By: #### CBC #### [facility] [address] [place] [address] Dr. Brad Monroy (RBC) [Entitic mass]27.8 rpCqyktn07.7-34.0The [facility] SystemComment on above:Performed By: #### CBC #### [facility] [address] [place] [address] Dr. Brad Monroy (RBC) [Mass/Vol]31.9 g/sLNtrqsp49.9-35.2The [facility] Health SystemComment on above:Performed By: #### CBC #### [facility] [address] [place] [address] Dr. Brad Monroy (RBC) [Entitic vol]87.0 gXZbcvgq66.0-99.0The [facility] Health SystemComment on above:Performed By: #### CBC #### [facility] [address] [place] [address] Dr. Brad Arroyo #0.8 103/ulNormal0.3-0.8The [facility] SystemComment on above:Performed By: #### CBC #### [facility] [address] [place] [address] Dr. Brad Leonocytes/100 WBC (Bld)6.0 %Normal1.7-12.0[facility] Comment on above:Performed By: #### CBC #### [facility] [address] [place] [address] Dr. Brad Cah #10.3 103/ulCritically high1.4-6.5The [facility] Comment on above:Performed By: #### CBC #### [facility] [address] [place] [address] [address] Brad Pierreutrophils/100 WBC (Bld)76.7 %Critically high43.0-75.0The [facility] Hospitalment on above:Performed By: #### CBC #### [facility] [address] [place] [address] [address] Brad Barajaslet mean volume (Bld) [Entitic vol]10.1 fLNormal9.5-13.5The [facility] Health SystemComment on above:Performed By: #### CBC #### [facility] [address] [place] [address] Dr. Brad HaysPLT175 103/vrVxpzbl105-466Pps [facility] SystemComment on above: Performed By: #### CBC #### [facility] [address] [place] [address] Dr. Brad HaysRBC3.78 106/ulCritically low4.20-5.40The [facility] Hospitalment on above:Performed By: #### CBC #### [facility] [address] [place] [address] Dr. Brad HaysWBC13.5 103/ulCritically high4.0-11.0The [facility] Hospitalment on above:Performed By: #### CBC #### [facility] [address] [place] [address] Dr. Brad Berrios AUTO DIFFon [id number] #0.0 103/ulNormal0.0-0.1The [facility] Hospitalment on above:Performed By: #### CBC #### [facility] [address] [place] [address] Dr. Brad HaysBasophils/100 WBC (Bld)0.3 %Normal0.2-2.0The [facility] Comment on above:Performed By: #### CBC #### [facility] [address] [place] [address] Dr. Salinas ChangEO #0.1 103/ulNormal0.0-0.7The [facility]ontas HospitalComment on above: Performed By: #### CBC #### [facility] [address] [address] [address] Brad Luiosinophils/100 WBC (Bld)0.7 %Critically low0.9-7.0The [facility] Health SystemComment on above:Performed By: #### CBC #### [facility] [address] [place] [address] Dr. Brad Luirythrocyte distribution width (RBC) [Ratio]13.3 %Jifkyr14.0-15.0 The [facility] SystemComment on above:Performed By: #### CBC #### [facility] [address] [place] [address] Dr. Brad HaysHematocrit (Bld) [Volume fraction]36.6 %Nqnyje99.0-48.0The [facility] SystemComment on above:Performed By: #### CBC #### [facility] [address] [place] [address] Dr. Brad HaysHemoglobin (Bld) [Mass/Vol]12.2 g/vANxcoly01.0-16.0The [facility] SystemComment on above:Performed By: #### CBC #### [facility] [address] [place] [address] Dr. Brad Weems #0.05 10e3/ulCritically high0.00-0.03The [facility] Comment on above:Performed By: #### CBC #### [facility] [address] [place] [address] Dr. Brad Weems %0.4 %Normal0.0-0.5The [facility] SystemComment on above: Performed By: #### CBC #### [facility] [address] [place] [address] Dr. Brad NewH #2.3 103/ulNormal1.2-3.8The [facility] SystemComment on above:Performed By: #### CBC #### [facility] [address] [place] [address] Dr. Brad Hudsonmphocytes/100 WBC (Bld)18.2 %Critically low20.5-60.0The [facility] SystemComment on above:Performed By: #### CBC #### [facility] [address] [place] [address] Dr. Brad Holt DIFF REQNONormalThe [facility] SystemComment on above: Performed By: #### CBC #### [facility] [address] [place] [address] Dr. Brad Monroy (RBC) [Entitic mass]28.6 fpEdlvtd81.7-34.0The [facility] Health SystemComment on above:Performed By: #### CBC #### [facility] [address] [place] [address] Dr. Brad Monroy (RBC) [Mass/Vol]33.3 g/xTSetlgr14.9-35.2The [facility] SystemComment on above:Performed By: #### CBC #### [facility] [address] [place] [address] Dr. Brad Velez (RBC) [Entitic vol]85.9 yPMknhpl58.0-99.0The [facility] SystemComment on above:Performed By: #### CBC #### [facility] [address] [place] [address] Dr. Brad Arroyo #1.0 103/ulCritically high0.3-0.8ThMount St. [facility] Comment on above:Performed By: #### CBC #### [facility] [address] [place] [address] Dr. Brda Leonocytes/100 WBC (Bld)7.7 %Normal1.7-12.0[facility] Comment on above:Performed By: #### CBC #### [facility] [address] [place] [address] Dr. Brad Cha #9.3 103/ulCritically high1.4-6.5ThMount St. [facility] Hospital Comment on above:Performed By: #### CBC #### [facility] [address] [place] [address] Dr. Brad Pierreutrophils/100 WBC (Bld)72.7 %Ticegp93.0-75.0The [facility] SystemComment on above:Performed By: #### CBC #### [facility] [address] [place] [address] Dr. Brad Mayen mean volume (Bld) [Entitic vol]10.3 fLNormal9.5-13.5The [facility] SystemComment on above:Performed By: #### CBC #### [facility] [address] [place] [address] Dr. Brad HaysPLT221 103/xkZnrrmt204-104Zmr [facility] SystemComment on above: Performed By: #### CBC #### [facility] [address] [place] [address] Dr. Brad HaysRBC4.26 106/ulNormal4.20-5.40The [facility] SystemComment on above:Performed By: #### CBC #### [facility] [address] [place] [address] Dr. Brad HaysWBC12.8 103/ulCritically high4.0-11.0The [facility] SystemComment on above:Performed By: #### CBC #### [facility] [address] [place] [address] Dr. Brad HaysCovid-19 PCR ([facility])on 27-54-4755HMIC-CoV-2 (COVID-19) RNA DHEERAJ+probe Ql (Unsp spec)Not detectedNormalNOT DETECTEDThe [facility] Comment on above:Result Comment: When diagnostic testing is negative, the [...] for this test is supported by the Health Information Provider of Health and Human Service's declaration that circumstances exist to justify the emergency use of in vitro diagnostics for the detection and/or diagnosis of the virus that causes COVID-19. This EUA will remain in effect for the duration of the COVID-19 declaration justifying emergency of IVDs, unless it is terminated or revoked by the FDA (after which the test may no longer be used).Performed By: #### CVDTBH #### [facility] [address] [place] [address] Dr. Brad HaysDRUG SCREEN RAPID (URINE)on [id number]E [facility] CampusComment on above:Performed By: #### DRUGRPD #### [facility] [address] [place] [address] Dr. Brad HaysBARNegativeNormalNEGATIVESumma Health Barberton CampusComment on above: Performed By: #### DRUGRPD #### [facility] [address] [place] [address] Dr. Brad HaysBUPNegativeNormalNEGPremier Health Miami Valley HospitalComment on above: Performed By: #### DRUGRPD #### [facility] [address] [place] [address] Dr. Brad HaysBZONegativeNormalNEGPremier Health Miami Valley HospitalComment on above: Performed By: #### DRUGRPD #### [facility] [address] [place] [address] Dr. Brad HaysCOCNegativermalNEGPremier Health Miami Valley HospitalComment on above: Performed By: #### DRUGRPD #### [facility] [address] [place] [address] Dr. Brad GallegosSelect Medical TriHealth Rehabilitation HospitalComment on above: Result Comment: AMP (Amphetamine): 500ng/mL, BAR (Barbituates): 200 ng/mL, BZO (Benzodiazepines): 150 ng/mL, BUP (Buprenorphine): 10 ng/mL, NANCY (Cocaine): 150 ng/mL, mAMP (Methamphetamine): 500 ng/mL, MTD (Methadone): 200 ng/mL, OPI (Opiates): 100 ng/mL, OXY (Oxycodone): 100 ng/mL, PCP (Phencyclidine): 25 ng/mL, PPX (Propoxyphene): 300 ng/mL, THC (Cannabinoids): 50 ng/mL, TCA (Trycyclic Antidepressants): 300 ng/mLPerformed By: #### DRUGRPD #### [facility] [address] [place] [address] Dr. Brad HaysDRUG CUT HEADERDRUG CLASS TEST SYSTEM CUT-OFF CONCENTRATIONS ARE FOLLOWS:NormalThe [facility] Health SystemComment on above:Performed By: #### DRUGRPD #### [facility] [address] [place] [address] Dr. Brad HaysmAMPNegativeNormalNEGATIVESumma Health Barberton CampusComment on above: Performed By: #### DRUGRPD #### [facility] [address] [place] [address] Dr. Brad HaysMTDNegativeNormalNEGATIVESumma Health Barberton CampusComment on above: Performed By: #### DRUGRPD #### [facility] [address] [place] [address] Dr. Brad HaysOPINegativeNormalNEGATIVESumma Health Barberton CampusComment on above: Performed By: #### DRUGRPD #### [facility] [address] [place] [address] Dr. Brad HaysOXYNegativeNormalNEGATIVESumma Health Barberton CampusComment on above: Performed By: #### DRUGRPD #### [facility] [address] [place] [address] Dr. Brad HaysPCPNegativeNormalNEGATIVESumma Health [facility] CampusComment on above: Performed By: #### DRUGRPD #### [facility] [address] [place] [address] Dr. Brad HaysPPXNegativeNormalNEGATIVESumma Health Barberton CampusComment on above: Performed By: #### DRUGRPD #### [facility] [address] [place] [address] Dr. Brad HaysTCANegativeNormalNEGATIVESumma Health Barberton CampusComment on above: Performed By: #### DRUGRPD #### [facility] [address] [place] [address] Dr. Brad HaysTHCNegativeNormalNEGATIVESumma Health Barberton CampusComment on above: Performed By: #### DRUGRPD #### [facility] [address] [place] [address] Dr. Brad Green AND SCREENon [id number] AND SCREENNegativeNoPomerene HospitalComment on above:Performed By: #### TNS #### [facility] [address] [place] [address] Dr. Brad Contreras PREG AMNIOTIC FLUID VOLUMEon [id number] PREG AMNIOTIC FLUID VOLUMEEXAMINATION: US PREG AMNIOTIC FLUID VOLUME HISTORY: Noninflammatory [...] Electronically authenticated by: WALLY SOLIMAN Date: 2021-11-13 16:04[facility] HospitalGROUP B STREP CULTUREon 11-03-2021. agalactiae Ag Ql (Unsp spec)Culture Observations: NEGATIVE FOR GROUP B STREPTOCOCCUS.NormalSumma Health Barberton CampusComment on above: Performed By: #### GBSCX #### [facility] [address] [place] [address] Dr. Brad Contreras PREG INCOMPLETE ANATOMYon [id number] PREG INCOMPLETE ANATOMY EXAMINATION: US PREG INCOMPLETE ANATOMY HISTORY: screening COMPARISON: Ultrasound anatomy 07/13/2021 FINDINGS: Presentation: Cephalic Heart rate: 136 bpm Amniotic fluid: Subjectively normal Anatomy: Adequate visualization of spine without abnormality. IMPRESSION: 1. Single live intrauterine . 2. No appreciable abnormality of the spine. Electronically authenticated by: SOY PINA Date: 2021-08-10 07:15NormalSumma Health Barberton CampusUS PREG ANATOMY SINGLEon [id number] PREG ANATOMY SINGLE EXAMINATION: US PREG ANATOMY [...] Electronically authenticated by: SOY PINA Date: 2021-07-13 16:04[facility] HospitalMRI Spine Cervical w/o Contraston [id number] Spine Cervical w/o ContrastEXAM: MRI Spine Cervical w/o Contrast HISTORY: Neck pain for 4 months with no specific injury. Headaches. COMPARISON: None. TECHNIQUE: Multiplanar and multisequence imaging of the cervical spine was performed without contrast. FINDINGS: Motion artifact degrades evaluation on this study. There is straightening of the cervicallordosis. No acute fracture or spondylolisthesis is evident. There is disc desiccation throughout the cervical spine. 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 This does not meet criteria for a Chiari I malformation. No focal cord signal abnormalityis visualized in the cervical cord given motion artifact degrading evaluation. No enlarged cervicallymph nodes are evident. The visualized thyroid gland demonstrates no focal abnormality. C2-C3: There is mild uncovertebral spurring and mild left-sided facet arthropathy. There is no central or foraminal stenosis. C3-C4: There are bilateral uncovertebral/foraminal disc-osteophyte complexes measuring 2 to 3 mm inAP dimension resulting in mild to moderate bilateral [...] central or foraminal stenosis. IMPRESSION: 1. Bilateral uncovertebral/foraminal disc-osteophyte complexes at C3-C4 result in mild to moderate bilateral foraminal narrowing without central stenosis. 2. There is also a broad-based disc protrusion and uncovertebral spurring at C4- C5 resulting in minimal foraminal narrowing without central stenosis. 3. No fracture or spondylolisthesis. Final Dictated by: Pa Lara MD Dictated DT/TM: 12/20/2019 8:30 pm Signed by: Pa Lara MD Signed (Electronic Signature): 12/20/2019 8:40 pm Transcribed DT/TM: 12/20/2019 8:37 (If Report Is Signed, Electronically Signed in Other Vendor System)Normal [facility] HospitalChlamydia/GC DNA, TPon [id number] Probe, TPNegativeNormalNEGMercy [facility] Psychiatric HospitalComment on above:Result Comment: CHLAMYDIA TRACHOMATIS DNA not detected by nucleic acid [...] positive results by an alternative nucleic acid target.Performed By: #### CYTCGP #### [facility] [address] [place] [address] Laborer Beam House: Hema Paredes MDGonorrhea Probe, TPNegativeNormalNEGMercy [facility] HospitalComment on above:Result Comment: NEISSERIA GONORRHOEAE DNA not detected by nucleic acid [...] positive results by an alternative nucleic acid target.Performed By: #### CYTCGP #### [facility] [address] [place] [address] [id number] Lab[employer]: YULISSA Navaytologyon [id number](NOTE) INTERPRETATION Cervical material, (ThinPrep vial, Imaging-assisted review): Specimen Adequacy: Satisfactory for evaluation. - Endocervical/transformation zone component present. Descriptive Diagnosis: Negative for intraepithelial lesion or malignancy. 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 High risk HPV DNA testing is requested if the diagnosis is abnormal GYNECOLOGIC CYTOLOGY REPORT Patient Name: DOUGLAS TUTTLE [facility] Rec: [id number] Path Number: [id number] [employer] [facility] ANATOMIC PATHOLOGY [address] [place] [id number] NoUniversity Hospitals Ahuja Medical CenterComment on above:Performed By: #### PPPVP #### [facility] [address] [place] [address] [id number] Lab[employer]: Hema Paredes MD Vital Signs Date TimeVital SignValuePerforming YdcfdjqolTldtifcb26-69-9135 14:18-0400Body txotme493 cmMatthieu Hu SENIOR WATER/WASTEWATER ENGINEER-LOOM STOP CHECKER Work Phone: [facility] [employer] Fisqtv44-51-4695 14:18-0400Body mass index (BMI) [Ratio]21.17 kg/x3GpnirbeMatthieu Hu APRN-LOOM STOP CHECKER Work Phone: [facility]09-23-2025 14:18-0400Body .25 kgMatthieu Hu APRN-LOOM STOP CHECKER Work Phone: [facility]09-23-2025 13:06-0400Body mass index (BMI) [Ratio]21.97 kg/u3Fmjoz Sakshi DO Work Phone: [facility] HospitalKotmfxugkt35-54-1612 13:06-0400Body zflwog75.06 kgCorey Sakshi DO Work Phone: [phone] [place] [address]-23-2025 13:06-0400Diastolic blood hgsahsnk37 mm[Hg]Ramses Sakshi DO Work Phone: [facility] HospitalAmwnubbyes89-31-1622 13:06-0400Systolic blood okevtkpa752 mm[Hg]Ramses Sakshi DO Work Phone: [phone] [place], [place] [address]Ujmuorvuxv42-90-9674 14:19-0400Body mass index (BMI) [Ratio]22.45 kg/a3Vjgsj Sakshi DO Work Phone: [place] [address]Uryydoxcxp49-56-3586 14:19-0400Body tdporq93.33 kgCorey Sakshi DO Work Phone: [facility] HospitalRpycggsqkb09-53-8552 14:19-0400Diastolic blood jofayrji20 mm[Hg]Ramses Sakshi DO Work Phone: [phone] [place], [place] [address]Frwhgzuhln84-71-4800 14:19-0400Systolic blood kxtveivz260 mm[Hg]Ramses Sakshi DO Work Phone: [phone] [place], [place] [address]Kdwdoiqmrt91-64-0429 09:56-0400Body mass index (BMI) [Ratio]25.4 kg/p3Tuuzd Sakshi DO Work Phone: [facility] HospitalWguzvrnnbz36-06-4355 09:56-0400Body lqnsdi51.13 kgCorey Sakshi DO Work Phone: [phone] [place], [place] [address]Tmpldwuvlm67-95-9426 09:56-0400Diastolic blood ylihyuml94 mm[Hg]Ramses Sakshi DO Work Phone: [phone] [place], [place] [address]Vcmwrtatvv30-20-8085 09:56-0400Systolic blood fybbbiye811 mm[Hg]Ramses Sakshi DO Work Phone: [phone])[facility] [place], [place] [address]Xauivmednb82-00-4533 10:03-0400Body mass index (BMI) [Ratio]25.06 kg/j1Ygxho Sakshi DO Work Phone: [phone])[facility] [place], [place] [address]Mhawpsoahf74-99-0754 10:03-0400Body qfgsxo84.22 kgCorey Sakshi DO Work Phone: 1419)[facility] [place], [place] [address]Tmyoxajfej37-98-8795 10:03-0400Diastolic blood mm[Hg]Ramses Sakshi DO Work Phone: [phone])[facility] [place], [place] [address]Jmjrzeoyzu75-97-3800 10:03-0400Systolic blood mm[Hg]Ramses Sakshi DO Work Phone: [phone])[facility] [place], [place] [address]Dwwdgbkmio52-49-7616 10:18-0400Body mass index (BMI) [Ratio]24.72 kg/y4Rsnsh Sakshi DO Work Phone: [phone])[facility] [place], [place] [address]Rkghibwkou01-48-6921 10:18-0400Body afqdry26.32 kgCorey Sakshi DO Work Phone: [phone])[facility] [place], [place] [address]Cuofpumhle23-39-1023 10:18-0400Diastolic blood flzyrqnb22 mm[Hg]Ramses Sakshi DO Work Phone: 1(165)[facility] [place], [place] [address]Zqmhxrsjtx91-28-7153 10:18-0400Systolic blood aqdmbicr184 mm[Hg]Ramses Sakshi DO Work Phone: [phone])[facility] [facility] [place], [place] [address]Yxawbsuzpz97-17-8747 10:47-0400Body mass index (BMI) [Ratio]24.2 kg/m2Diana VIRGEN Work Phone: [phone])702-[address] [place], [place] [address]Pkcgpnmvqs16-01-8124 10:47-0400Body .96 kgDiana VIRGEN Work Phone: 1([phone])[facility] [place], [place] [address]Xurbmcbwij74-37-0606 10:47-0400Diastolic blood gvhchwha89 mm[Hg]Diana VIRGEN Work Phone: 1([phone])609-[address] [place], [place] [address]Iudaxmuyzm72-76-5083 10:47-0400Systolic blood yfovjtzo232 mm[Hg]Diana VIRGEN Work Phone: 1(419)[facility] [place], [place] [address]Nvlfghwxrb08-50-5338 13:07-0400Body mass index (BMI) [Ratio]24.1 kg/f0Yisij Sakshi DO Work Phone: 1(419)[facility] [place], [place] [address]Rkgnuduzfc46-86-5029 13:07-0400Body .69 kgCorey Sakshi DO Work Phone: 1(419)[address] [place], [place] [address]706705-28-2025 13:07-0400Diastolic blood svogkfxg45 mm[Hg]Ramses Sakshi DO Work Phone: 1(419)[facility] [place], [place] [address]Bnslucrvuz31-83-6436 13:07-0400Systolic blood zjjkobsr315 mm[Hg]Ramses Sakshi DO Work Phone: 1(419)[facility] [place], [place] [address]Bappgpcykc39-52-6288 09:30-0400Body egxjzw847.6 cmCorey Sakshi DO Work Phone: 1(419)[facility] [place], [place] [address]Ebbshnnuqt54-97-5704 09:25-0400Body mass index (BMI) [Ratio]23.86 kg/d2Cnrij Sakshi DO Work Phone: 1(419)[facility] [place], [place] [address]Lqsgmbkwkd08-19-4005 09:25-0400Body ylrcol50.05 kgCorey Sakshi DO Work Phone: 1(419)[facility] [place], [place] [address]Yiwbmsyfuk33-56-3758 09:25-0400Diastolic blood khstcapl17 mm[Hg]Ramses Sakshi DO Work Phone: 1(419)[address] [place], [place] 9706705-13-2025 09:25-0400Systolic blood unnmxrvw612 mm[Hg]Ramses Sakshi DO Work Phone: 1(419)[address] [place], [place] 9706704-17-2025 08:28-0400Body rpfeqz78.78 kgCorey Sakshi DO Work Phone: 1(419)[address] [place] [address]-17-2025 08:28-0400Diastolic blood covrryyx77 mm[Hg]Ramses Sakshi DO Work Phone: [facility] HospitalTrxmyxrxbm64-[facility]-8036 08:28-0400Systolic blood iqalzjgw70 mm[Hg]Ramses Sakshi DO Work Phone: 1(285)382-[address] [place], [place] [address]Xauwrvzbhy05-29-9174 09:34-0400Body tuqirq27.7 kg Ramses Sakshi DO Work Phone: 1(443)019-[address] [place], [place] [address]Gkyncguuld55-50-3902 09:34-0400Diastolic blood ctqftxug08 mm[Hg]Ramses Sakshi DO Work Phone: 1(415)815-[address] [place], [place] [address]Kqxyzjuncd14-56-7888 09:34-0400Systolic blood bxuslqtz230 mm[Hg]Ramses Sakshi DO Work Phone: 1(607)493-[address] [place], [place] [address]Ylavwglzbx37-49-4747 11:33-0500Body xqhuwj84.06 kgCorey Sakshi DO Work Phone: 1(435)968-[address] [place], [place] [address]Nhkmeiusld73-14-3301 11:33-0500Diastolic blood xvjewsyo59 mm[Hg]Ramses Sakshi DO Work Phone: 1(503)121-[address] [place], [place] [address]Povykvydzx23-72-8626 11:33-0500Systolic blood puypkbpx866 mm[Hg]Ramses Sakshi DO Work Phone: 1(819)774-[address] [place], [place] [address]Hrifkpfzoe03-72-0426 11:34-0500Body otgweq61.79 kgCorey Sakshi DO Work Phone: 1(921)400-[address] [place], [place] [address]Ytgtouwplq95-80-9909 11:34-0500Diastolic blood wysctrzs28 mm[Hg]Ramses Sakshi DO Work Phone: 1(745)883-[address] [place], [place] [address]Powrrqvkmv46-28-1699 11:34-0500Systolic blood mvmihjpu832 mm[Hg]Ramses Sakshi DO Work Phone: 1(968)697-[address] [place], [place] [address]Pzyozqacmc00-05-5840 09:30-0500Body vrlaae43.34 [facility] 10:32-0400Body cmPa Dasilva MD Work Phone: 1(467)535-[address] [place], [place] 4410610-02-2024 10:32-0400Body mass index (BMI) [Ratio]19.97 kg/m2Pa Dasilva MD Work Phone: 1(293)974-[address] [place], [place] 8741010-02-2024 10:32-0400Body ljizvn77.07 kgPa Dasilva MD Work Phone: 1(575)110-[address] [place], [place] 8741010-02-2024 10:32-0400Diastolic blood mm[Hg]Pa Dasilva MD Work Phone: 1(510)328-[address] [place], [place] 8741010-02-2024 10:32-0400Heart rate 92 /minPa Dasilva MD Work Phone: 1(316)873-[address] [place], [place] 8741010-02-2024 10:32-0400Systolic blood indxonbd050 mm[Hg]Pa Dasilva MD Work Phone: 1(023)174-[address] [place], [place] [address]1009-11-2024 15:27-0400Body nhpuve28.62 kgCorey Sakshi DO Work Phone: [facility] Encounters Encounter DateEncounter TypeCare ProviderFacilityStart: 12-18-2024 End: 56-13-8955Xlrcdi flowsheetCorey Sakshi DO Work Phone: NODF [facility] OBGYNStart: 12-18-2024 End: 82-92-1262Vpsfrx flowsheetCorey Sakshi DO Work Phone: NONA [place] OBGYNStart: 11-20-2024 End: 29-97-2830Eaznbu outpatient new 30 minutesM[facility] Hipolito Hu SENIOR WATER/WASTEWATER ENGINEER-LOOM STOP CHECKER Work Phone: [facility] General SurgeryComment on above: Skin tag of anus (Primary Dx)Start: 11-20-2024 End: 45-63-4506xauvsbkjyvAGCLCCA A CARROLLTri[facility] Start: 11-20-2024 End: 10-33-9750Wfhzzfb encounter procedureCorey Sakshi DO Work Phone: [facility]ully OBGYNComment on above:Encounter for IUD insertionStart: 11-20-2024 End: 79-89-6241bsluknjqexGYEOK FAZIONot AvailableStart: 10-31-2024 End: 21-71-1333mrfbohuclaZZRLM FAZIONot AvailableStart: 10-31-2024 End: 61-36-3232Eyekbuwovo care visitCorey Sakshi DO Work Phone: NOZL [place] OBGYNComment on above:6 weeks follow-up ([facility])Start: 09-15-2024 End: 08-90-5395Geftptcvv Result EncounterCorey Sakshi DO Work Phone: NORI External Department UnsolicitedStart: 09-15-2024 End: 15-93-2255Rkomwdgmy Result EncounterCorey Sakshi DO Work Phone: NOUY External Department UnsolicitedStart: 09-13-2024 End: 03-05-6563Musfllnno Result EncounterCorey Sakshi DO Work Phone: NONN External Department UnsolicitedStart: 09-13-2024 End: 12-79-2211Xpvdlgdkw Result EncounterCorey Sakshi DO Work Phone: NOBE External Department UnsolicitedStart: 09-11-2024 End: 27-73-4127Wmoppn flowsheetCorey Sakshi DO Work Phone: NOIS BCP OBStart: 09-11-2024 End: 85-22-4806Shvhyg flowsheetCorey Sakshi DO Work Phone: [facility] BCP OBStart: 09-11-2024 End: 13-11-9551nnrsfgpyeaETGRM FAZIONot AvailableStart: 09-11-2024 End: 76-49-2435Xbrujqnz flow sheetCorey Sakshi DO Work Phone: [facility] BCP OBComment on above:Third trimester ([facility]); 36 weeks gestation of ([facility])Start: 09-04-2024 End: 87-56-5127Eiyxwe flowsheetCorey Sakshi DO Work Phone: [facility] BCP OBStart: 09-04-2024 End: 51-00-7834Nghvbc flowsheetCorey Sakshi DO Work Phone: [facility] BCP OBStart: 09-04-2024 End: 14-08-2482eitohlkufkOSCKX FAZIONot AvailableStart: 09-04-2024 End: 52-74-9315Buqrtfgf flow sheetCorey Sakshi DO Work Phone: [facility] BCP OBComment on above:Third trimester ([facility]); 35 weeks gestation of ([facility]); Heartburn during in third trimester ([facility])Start: 08-21-2024 End: 26-09-4092Etopmv flowsheetCorey Sakshi DO Work Phone: [facility] BCP OBStart: 08-21-2024 End: 58-18-8058Juozel flowsheetCorey Sakshi DO Work Phone: [facility] BCP OBStart: 08-21-2024 End: 79-19-0598ioqctqwxtqGGANK FAZIONot AvailableStart: 08-21-2024 End: 06-73-8282Ibdlwjgo flow sheetCorey Sakshi DO Work Phone: [facility] BCP OBComment on above:Third trimester ([facility]); 34 weeks gestation of ([facility])Start: 08-07-2024 End: 59-47-4265Lknkyyyu flow sheetiDana VIRGEN Work Phone: [facility] BCP OBComment on above:Third trimester ; 31 weeks gestation of pregnancyStart: 08-07-2024 End: 57-75-5113tibajxiowmOVI Coreen AvailableStart: 07-25-2024 End: 15-96-3221Olkodq flowsheetCorey Sakshi DO Work Phone: [facility] BCP OBStart: 07-25-2024 End: 64-63-3892Cibokb flowsheetCorey Sakshi DO Work Phone: [facility] BCP OBStart: 07-25-2024 End: 81-12-5937Qnascuqm flow sheetCorey Saskhi DO Work Phone: NOIR BCP OBComment on above:30 weeks gestation of ; Third trimester pregnancyStart: 07-25-2024 End: 72-74-3282axocellclmARNZR FAZIONot AvailableStart: 07-10-2024 End: 51-05-7459Eyfzwl flowsheetCorey Sakshi DO Work Phone: [facility] BCP OBStart: 07-10-2024 End: 46-31-9984Daghue flowsheetCorey Sakshi DO Work Phone: NOZY BCP OBStart: 07-10-2024 End: 64-86-7587Ujimwhox flow sheetCorey Sakshi DO Work Phone: [facility] BCP OBComment on above:Second trimester ; 27 weeks gestation of ; size inconsistent with datesStart: 07-10-2024 End: 93-54-9433mqbszbujiiNFTYB FAZIONot AvailableStart: 06-23-2024 End: 99-87-2287Agvjnvkeh Result EncounterCorey Sakshi DO Work Phone: noms External Department UnsolicitedStart: 06-23-2024 End: 53-65-2149Tyewxcuxn Result EncounterCorey Sakshi DO Work Phone: noms External Department UnsolicitedStart: 06-14-2024 End: 48-82-0442Zqmyrize flow sheetCorey Sakshi DO Work Phone: [facility] BCP OBComment on above:Second trimester ; 24 weeks gestation of pregnancyStart: 06-14-2024 End: 64-57-6807jnsvsbtuteVRPNU FAZIONot AvailableStart: 05-17-2024 End: 87-89-1060genykbzujdSYECL FAZIONot AvailableStart: 05-17-2024 End: 05-02-7081Hheoknkd flow sheetCorey Sakshi DO Work Phone: [facility] BCP OBComment on above:20 weeks gestation of ; Second trimester ; Diabetes mellitus screening; Encounter for follow-up ultrasound of anatomy; Hemorrhoids, unspecified hemorrhoid typeStart: 05-17-2024 End: 91-32-1545kxwgkofidsZAGME FAZIONot AvailableStart: 04-18-2024 End: 57-23-9632Vaqcsx flowsheetCorey Sakshi DO Work Phone: noms BCP OBStart: 04-18-2024 End: 66-36-2335Zemjcs flowsheetCorey Sakshi DO Work Phone: noms BCP OBStart: 04-18-2024 End: 83-51-8360Geblgnkw flow sheetCorey Sakshi DO Work Phone: noms BCP OBComment on above:Second trimester ; 16 weeks gestation of ; Screening, , for anatomic survey; STD exposure; Vaginal dischargeStart: 04-18-2024 End: 28-59-7913ebazikxyutDZYDV FAZIONot AvailableStart: 03-21-2024 End: 61-96-6209Lqjhhi flowsheetCorey Sakshi DO Work Phone: noms BCP OBStart: 03-21-2024 End: 24-41-9801Pmsuvj flowsheetCorey Sakshi DO Work Phone: noms BCP OBStart: 03-21-2024 End: 83-55-7079Tcnfhjst flow sheetCorey Sakshi DO Work Phone: noms BCP OBComment on above:First trimester ; 12 weeks gestation of pregnancyStart: 03-21-2024 End: 69-87-3938mcahzokkziBMGLX FAZIONot AvailableStart: 03-09-2024 End: 18-44-5624Ezsrzvtgu Result EncounterCorey Sakshi DO Work Phone: noms External Department UnsolicitedStart: 03-09-2024 End: 58-86-8924Otyeimasi Result EncounterCorey Sakshi DO Work Phone: noms External Department UnsolicitedStart: 03-01-2024 End: 56-36-7000Wweujh outpatient visit 5 minutesNoms Bcp Ob Sakshi NurseNOMS BCP OBComment on above:GA: 4i4kRqoad: 03-01-2024 End: 00-17-8437cwtguxralhMVXFN FAZIONot AvailableStart: 11-30-2023 End: 01-51-5289Fkofbs outpatient new 30 minutesPa Dasilva MD Work Phone: [facility]St[facility] Comment on above:Palpitation (Primary Dx); Acne vulgarisStart: 11-30-2023 End: 62-49-1972alrqqahywkDEGJ J [facility] Ambulatory PPGStart: 11-09-2023 End: 30-86-4700Tjlasn outpatient visit 15 minutesCorey Sakshi DO Work Phone: [facility] BCP OBComment on above:Female infertility; PCOS (polycystic ovarian syndrome); Abnormal uterine bleeding (AUB)Start: 11-09-2023 End: 82-14-2882Pxavvc flowsheetCorey Sakshi DO Work Phone: [facility] BCP OBStart: 11-09-2023 End: 75-07-3575Riykwx flowsheetCorey Sakshi DO Work Phone: NOJO BCP OBStart: 05-26-2022 End: 18-23-6278ervjvlanocSQ RAMSES SAKSHI .Facility:E3Zgygl: 11-30-2021 End: 35-15-8125dhkokrsiuzGE NONE LISTED REQUESTFacility:Q1Fgyfz: 11-25-2021 End: 62-68-3077Mdojpkudgf and management of inpatientDR RAMSES SAKSHI .Facility:H1 Start: 11-23-2021 End: 98-65-5494ihwgsovrvvHF RAMSES SAKSHI .Facility:Q9Xqljg: 11-12-2021 End: 70-27-8319icfxacqoobCB RAMSES SAKSHI .Facility:P7Vdcfl: 11-03-2021 End: 04-04-3153kmyfozbxghVH RAMSES SAKSHI .Facility:V5Rwmmi: 98-67-0334yrstbblfhx DR RAMSES SAKSHI .Facility:G9Mypxc: 08-08-2021 End: 93-88-3541zlpnojsfbwVK COREY FAZIO .Facility:C0Ldrlp: 07-13-2021 End: 26-16-8651vxuixhzukwMI COREY FAZIO .Facility:Y4Hxakc: 00-53-0561jqxldtayjo DR RAMSES CANTOR .Facility:Z8Wrvyx: 12-20-2019 End: 97-29-9551Fvzvstt encounter procedureMALCOM GUNTER [facility]-2019 End: 03-37-4038Fusslqr encounter procedureNOVANT HEALTH BRUNSWICK [facility] CENTERELIANE LoganThe [facility] Start: 05-08-2019 End: 01-24-8686Ydzphegkfq hospital visit by physicianMalcom [facility] Comment on above:Screen for STD (sexually transmitted disease); Well woman exam with routine gynecological exam Procedures DateProcedureProcedure DetailPerforming ClinicianStart: 74-36-0724Fsnye test visual color cmprsn methsCorey Sakshi DO Work Phone: Start: 57-94-4623Smpdeafoz intrauterine device iud Ramses Sakshi DO Work Phone: Start: 45-09-7004WWA CBC WITH AUTO DIFFCorey Sakshi DO Work Phone: Start: 45-66-3496XHIUCKYBYvtyn Sakshi DO Work Phone: Start: 29-37-4312Zdnop dip stick/tablet rgnt non-auto w/o micrscpCorey Sakshi DO Work Phone: Start: 87-86-7775Sfvtv dip stick/tablet rgnt non-auto w/o micrscpCorey Sakshi DO Work Phone: Start: 60-51-0309Vogto dip stick/tablet rgnt non-auto w/o micrscpCorey Sakshi DO Work Phone: Start: 43-42-4492Sxzlk dip stick/tablet rgnt non-auto w/o micrscpAmy Elise PA Work Phone: Start: 08-06-2774Lqjph dip stick/tablet rgnt non-auto w/o micrscpCorey Sakshi DO Work Phone: Start: 82-44-4693Nnvvv dip stick/tablet rgnt non-auto w/o micrscpCorey Sakshi DO Work Phone: Start: 56-54-1691JZQ CBC WITH AUTO DIFFCorey Sakshi DO Work Phone: Start: 39-80-9701KZBXBYI 1 HOURCorey Sakshi DO Work Phone: Start: 77-01-5404Dvqxw dip stick/tablet rgnt non-auto w/o micrscpCorey Sakshi DO Work Phone: Start: 69-06-2487Xebbp dip stick/tablet rgnt non-auto w/o micrscpCorey Sakshi DO Work Phone: Start: 18-35-1220Vthbv dip stick/tablet rgnt non-auto w/o micrscpCorey Sakshi DO Work Phone: Start: 17-70-4002Knzbf dip stick/tablet rgnt non-auto w/o micrscpCorey Sakshi DO Work Phone: Start: 68-95-2592LTY TESTCorey Sakshi DO Work Phone: Start: 03-01-2024 End: 65-47-3516Lavot dip stick/tablet rgnt non-auto w/o micrscpCorey Sakshi DO Work Phone: Start: 40-68-9783Bfvna depression screening assessment Pa Dasilva MD Work Phone: start: 42-87-8061Pmjo cerv/vag auto thin layer prep mnl screenCorey Sakshi DO Work Phone: Start: 25-49-4198Xielcsol of Products of Conception, External ApproachDR RAMSES CANTOR .Start: 59-23-3074Zubfkjqd of Amniotic Fluid, Therapeutic from Products of Conception, Via Natural or Artificial OpeningDR RAMSES CANTOR .Start: 62-53-1052Nnedmmvgobzl of Other Hormone into Peripheral Vein, Percutaneous ApproachDR RAMSES CANTOR .Start: 41-25-7734Kfakyv Perineum Skin, External ApproachDR RAMSES CANTOR .Start: 64-60-3463Ztpu ia chlamydia trachomatisKATHLEEN POOLStart: 37-76-8025Sbzxkc pap by florencio nelson md supvKATNASHOBA VALLEY MEDICAL C[facility] Plan of Treatment DateCare ActivityDetailAuthorStart: 78-67-6771Btclicuc Vaccine (1 of 2)Shingles Vaccine (1 of 2)[facility], [place]Start: 01-46-5453Cghjz BMI ScreeningAdult BMI ScreeningProKettering Health Dayton SystemStart: 47-58-1955Lbhwceg ScreeningTobacco ScreeningGeorgetown Behavioral Hospital SystemStart: 12-18-2024 End: 19-29-7349Ykgogfr encounter procedureNOMS Zully OBGYNComment on above: ArrivedStart: 12-11-2024 End: 21-47-0363Ipureaa encounter vucjuxpoa73/14/2025 9:40 AM EDT Procedure Visit NOMMark HORTA [address] [place] [address] Ramses Cantor, DO [address] [place] [address] NOMMark RYANNStart: 46-46-0340Gkfyg BMI ScreeningAdult BMI ScreeningProKettering Health Dayton SystemStart: 11-29-2024 Depression ScreeningDepression ScreeningGeorgetown Behavioral Hospital SystemStart: 11-29-2024 Tobacco ScreeningTobacco ScreeningGeorgetown Behavioral Hospital SystemStart: 11-13-2024 End: 78-55-3943Wxhosrf encounter cefrtivrx97/16/2025 10:30 AM EDT Procedure Visit LINH [facility]ORTA [address] [facility] [id number] Ramses Cantor, DO [address] [place], [place] [id number] LINH [place] OBGYNStart: 10-29-2024 Influenza vaccinationInfluenza VaccineHolzer Health Systemca [facility] SystemStart: 10-02-2024 End: 12-11-5802Xpmzlyy encounter coqvbrrys69/05/2025 9:40 AM EDT Routine [facility] [address] [facility] [address] Ramses Cantor, DO [address] [facility] [address] [place] [address] NOMS BCP OBStart: 09-25-2024 End: 62-90-5872Nuvvxgp encounter piodggjel02/29/2025 9:40 AM EDT Routine [facility] [address] [facility] [address] Ramses Cantor, DO [address] [place] [address] [place] [address] NOMS BCP OBStart: 09-18-2024 End: 94-95-0008Xnftqia encounter iwetgqrof28/22/2025 9:40 AM EDT Routine [facility] [address] [facility] [address] Ramses Cantor, DO [address] [place] [address] [place] [address] NOMS BCP OBStart: 09-11-2024 End: 79-00-4464Nsktoyk encounter rilgbljfs89/15/2025 9:40 AM EDT Routine [facility] [address] [facility] [address] Ramses Cantor, DO [facility] [place] [address] NOMS BCP OBStart: 09-04-2024 End: 31-06-4564ZFPOTXI, GROUP B STREP WITH SUSCEPTIBLITYCULTURE, GROUP B STREP WITH SUSCEPTIBLITY Lab Routine Third trimester ([facility]) Expected: 09/04/2024, Expires: 09/04/2025[facility] Work Phone: comment on above:Expected: 09/04/2024, Expires: 09/04/2025Start: 09-04-2024 End: 56-98-6478Dttcpuk encounter etxiafdrn84/08/2025 9:40 AM EDT Routine [facility] [address] [facility] [address] Ramses Cantor, DO [address] [facility] [address] [place] [place], [place] [address] NOMS BCP OBStart: 08-21-2024 End: 61-69-6685Ouplqkx encounter lafemmqfm65/24/2025 9:40 AM EDT Routine [facility] [address] [facility] [address] Ramses Cantor, DO [address] [facility] [place] [address] NOMS BCP OBStart: 08-07-2024 End: 66-11-0944Bphmder encounter /10/2025 9:30 AM EDT Routine [facility] [address] [facility] [address] Diana Samuel, PROMISE [address] [facility] [address] [place], [place] [address] NOMS BCP OBStart: 08-07-2024 End: 23-81-7760Sdgaaaucumft / ancillary services lygfwgyocb12/10/2025 9:00 AM EDT Ancillary Procedure [facility] OB [address] [place] [address] NOMS BCP OBStart: 07-25-2024 End: 95-98-9509Ewtruxp encounter procedureNOMS BCP OBComment on above:Arrived Start: 07-10-2024 End: 58-09-5450HA for pregnancyUS OB follow up transabdominal approach Imaging Routine size inconsistent with dates Expected: 07/10/2024, Expires: 11/10/2024[facility] Work Phone: comment on above:Expected: 07/10/2024, Expires: 11/10/2024Start: 07-10-2024 End: 77-21-8213Htwipzi encounter qoalaaipj66/13/2025 9:10 AM EDT Routine [facility] OB [address] [facility] [place] [address] Ramses Cantor, DO [address] [facility] [address] [place], [place] [address] NOMS BCP OBStart: 06-06-2024 End: 58-57-3427Hwoupfq encounter tdqtmxyon39/09/2025 4:00 PM EDT Office Visit [facility] OB [address] [facility] [place] [address] Ramses Cantor, DO [address] [facility] [place] [address] NOMS BCP OBStart: 05-17-2024 End: 21-69-2297QTZ panel - Blood by Automated countCBC Lab Routine Diabetes mellitus screening Expected: 05/17/2024 (Approximate), Expires: 05/17/2025[facility]ank[facility] Work Phone: comment on above:Expected: 05/17/2024 (Approximate), Expires: 05/17/2025Start: 05-17-2024 End: 30-98-0262Zsleyvisvbl of glucose 1 hour after glucose challenge for glucose tolerance testGlucose tolerance, 1 hour Lab Routine Diabetes mellitus screening Expected: 05/17/2024 (Approximate), Expires: 05/17/2025[facility] HospitalComment on above:Expected: 05/17/2024 (Approximate), Expires: 05/17/2025Start: 05-17-2024 End: 58-55-8844ZC for pregnancyUS OB limited 1+ fetuses Imaging Routine Encounter for follow-up ultrasound of anatomy Expected: 05/17/2024, Expires: 05/17/2025[facility] Work Phone: comment on above:Expected: 05/17/2024, Expires: 05/17/2025Start: 04-18-2024 End: 79-00-1709Klbgj fetoprotein, maternalAlpha fetoprotein, maternal Lab Routine Screening, , for anatomic survey Expected: 04/18/2024 (Approximate), Expires: 06/16/2024[facility] HealthcareComment on above:Expected: 04/18/2024 (Approximate), Expires: 06/16/2024Start: 04-18-2024 End: 09-91-0999VQ for pregnancyUS OB 14+ weeks anatomy scan Imaging Routine Screening, , for anatomic survey Expected: 04/18/2024, Expires: 04/18/2025NO[facility] HealthcareComment on above:Expected: 04/18/2024, Expires: 04/18/2025Start: 04-18-2024 End: 49-86-2955Nbiyrwa encounter procedureNOMS BCP OBComment on above:Arrived Start: 03-21-2024 End: 67-46-7426Bjlpcno encounter procedureNOMS BCP OBComment on above:Arrived Start: 03-01-2024 End: 35-65-9227HMZ/RhABO/Rh Lab Routine Missed menses , unspecified gestational age Expected: 03/01/2024 (Approximate), Expires: 03/01/2025[facility] HealthcareComment on above:Expected: 03/01/2024 (Approximate), Expires: 03/01/2025Start: 03-01-2024 End: 18-09-9687Cywut type and Indirect antibody screen panel - BloodType and screen Lab Routine Missed menses , unspecified gestational age Expected: 03/01/2024 (Approximate), Expires: 03/01/2025[facility] Work Phone: comment on above:Expected: 03/01/2024 (Approximate), Expires: 03/01/2025Start: 03-01-2024 End: 81-01-9172Gnokv of abuse panel - Urine by Screen methodRapid drug screen, urine Lab Routine , unspecified gestational age Encounter for supervision of normal first in first trimester Expected: 03/01/2024 (Approximate), Expires: 03/01/2025[facility] HealthcareComment on above:Expected: 03/01/2024 (Approximate), Expires: 03/01/2025Start: 03-01-2024 End: 67-55-7357NT Pelvis transvaginalUS OB transvaginal Imaging Routine Missed menses Expected: 03/01/2024 (Approximate), Expires: 03/01/2025[facility] Comment on above:Expected: 03/01/2024 (Approximate), Expires: 03/01/2025Start: 11-09-2023 End: 61-01-5396Qrqmdqv encounter qtljnsueg66/11/2024 3:10 PM EDT Office Visit [facility] [address] [id number] Ramses Cantor, DO [address] [place] [address] [facility]NO[facility] OBComment on above:ArrivedStart: 11-09-2023 End: 25-11-4948Wcpmjsiizpxpj hormone (AMH)Antimullerian hormone (AMH) Lab Routine Female infertility Abnormal uterine bleeding (AUB) Expected: 11/09/2023 (Approximate), Expires: 11/08/2024[facility] HealthcareComment on above:Expected: 11/09/2023 (Approximate), Expires: 11/08/2024Start: 11-09-2023 End: 74-48-3824VXPGUOZI Lab Routine PCOS (polycystic ovarian syndrome) Expected: 11/09/2023 (Approximate), Expires: 11/08/2024[facility] HealthcareComment on above: Expected: 11/09/2023 (Approximate), Expires: 11/08/2024Start: 11-09-2023 End: 16-60-0663FY for pregnancyUS PELVIS-TRANSVAG IF INDICATED Imaging Routine PCOS (polycystic ovarian syndrome) Expected: 11/09/2023 (Approximate), Expires: 11/08/2024[facility] HealthcareComment on above:Expected: 11/09/2023 (Approximate), Expires: 11/08/2024Start: 94-12-1121Eltbumljk vaccinationInfluenza Vaccine [facility] Rextart: 34-39-9512Fsaivebf cancer screenCervical cancer screenMansfield Hospital, [place]Comment [place]:Postponed from 2018 (Not Indicated)Start: 11-12-1609Amggjszoq screenChlamydia screenMansfield Hospital, [place] Comment on above:Postponed from 03/23/2018 (Not Indicated)Start: 50-62-7816SBS screenHIV [facility] [place]poned from 2012 (Not Indicated)Start: 91-35-1077QDA vaccine (1 - 2-dose series)HPV vaccine (1 - 2-dose series)[facility] [place] from 2008 (Not Indicated)Start: 58-85-8383Zvwhcvvak vaccinationFlu vaccine (#1)[facility] [place]:Postponed from 10/29/2018 (Not Indicated)Start: 05-58-6885QIoH/Tdap/Td vaccine (1 - Tdap)DTaP/Tdap/Td vaccine (1 - Tdap[facility], [place]Comment [place]:Postponed from 2016 (Not Indicated)Start: 67-17-3538Sujwyslxw vaccine (1 of 2 - 2-dose childhood series)Varicella vaccine (1 of 2 - 2-dose childhood series)[facility], [place]Comment [place]:Postponed from 1998 (Not Indicated)Start: 36-67-8141Pcejhhqls for malignant neoplasm of cervixPap SmearGeorgetown Behavioral Hospital SystemStart: 99-06-5452MDhK,Tdap and Td Vaccines (1 - Tdap)DTaP,Tdap and Td Vaccines (1 - Tdap)[facility] HospitalBacteria identified in Urine by CultureUrine culture Microbiology Routine Missed menses Ordered: 03/01/2024[facility] HealthcareComment on above:Ordered: 03/01/2024 End: 05-08-2019C.trachomatis N.gonorrhoeae DNA, Thin PrepC.trachomatis N.gonorrhoeae DNA, Thin Prep Microbiology Routine Screen for STD (sexually transmitted disease) 1 Occurrences starting 05/08/2019 until 05/08/2019[facility], [place]Comment [place]:1 Occurrences starting 05/08/2019 until 05/08/2019C.trachomatis N.gonorrhoeae DNA, Thin PrepC.trachomatis N.gonorrhoeae DNA, Thin Prep Microbiology Routine Screen for STD (sexually transmitted disease) 05/08/2019 6:56 PM [facility], [place]CBC W Auto Differential panel - BloodCBC and differential Lab Routine PCOS (polycystic ovarian syndrome) Ordered: 11/09/2023[facility] HealthcareComment on above:Ordered: 11/09/2023BC W Auto Differential panel - BloodCBC and differential Lab Routine Missed menses , unspecified gestational age Ordered: 03/01/2024[facility] HealthcareComment on above:Ordered: 03/01/2024HLAMYDIA TRACHOMATIS (GENITO/STI)CHLAMYDIA TRACHOMATIS (GENITO/STI) Lab Routine STD exposure Vaginal discharge Ordered: 04/18/2024[facility] HealthcareComment on above:Ordered: 04/18/2024 End: 08-25-3213Cgtpkrrqhxhuc procedure, preparation of smear, genital sourcePAP SMEAR Lab Routine Well woman exam with routine gynecological exam 1 Occurrences starting 05/08/2019 until 05/08/2019[facility], [place]:1 Occurrences starting 05/08/2019 until 05/08/20192425RNRB-rjxrbnfGUNL-ddgffir Lab Routine PCOS (polycystic ovarian syndrome) Ordered: 11/09/2023[facility] Healthcare Comment on above:Ordered: 11/09/2023Follicle stimulating hormoneFollicle stimulating hormone Lab Routine PCOS (polycystic ovarian syndrome) Ordered: 11/09/2023[facility] HealthcareComment on above:Ordered: 11/09/2023hCG, quantitative, pregnancyhCG, quantitative, Lab Routine PCOS (polycystic ovarian syndrome) Ordered: 11/09/2023[facility] Healthcare Work Phone: comment on above:Ordered: 11/09/2023Hemoglobin A1c/Hemoglobin.total in BloodHemoglobin A1c Lab Routine Abnormal uterine bleeding (AUB) Ordered: 11/09/2023[facility] HealthcareComment on above:Ordered: 11/09/2023Hemoglobin A1c/Hemoglobin.total in BloodHemoglobin A1c Lab Routine Missed menses , unspecified gestational age Ordered: 03/01/2024[facility] HealthcareComment on above:Ordered: 03/01/2024Hepatitis B virus surface Ag [Presence] in Serum or Plasma by ImmunoassayHepatitis B surface antigen Lab Routine Missed menses , unspecified gestational age Ordered: 03/01/2024 [facility] HealthcareComment on above:Ordered: 03/01/2024Hepatitis C virus Ab [Presence] in Serum or Plasma by ImmunoassayHepatitis C antibody Lab Routine Missed menses , unspecified gestational age Ordered: 03/01/2024[facility] HealthcareComment on above:Ordered: 03/01/2024HIV-1/HIV-2 antigen/antibody combination immunoassayHIV-1 and HIV-2 antibodies Lab Routine Missed menses , unspecified gestational age Ordered: 03/01/2024[facility] HealthcareComment on above:Ordered: 03/01/2024IUD InsertionIUD Insertion Procedures Routine Encounter for IUD insertion Ordered: 11/20/2024[facility] Healthcare Work Phone: comment on above:Ordered: 11/20/2024Luteinizing hormoneLuteinizing hormone Lab Routine PCOS (polycystic ovarian syndrome) Ordered: 11/09/2023[facility] HealthcareComment on above:Ordered: 11/09/2023Neisseria gonorrhoeae DNA [Presence] in Unspecified specimen by DHEERAJ with probe detection Neisseria gonorrhea DNA probe, direct Lab Routine STD exposure Vaginal discharge Ordered: 04/18/2024[facility] HealthcareComment on above:Ordered: 04/18/2024Reagin Ab [Presence] in Serum by RPRRPR Lab Routine Missed menses , unspecified gestational age Ordered: 03/01/2024[facility] HealthcareComment on above:Ordered: 03/01/2024Rubella antibody, IgGRubella antibody, IgG Lab Routine Missed menses , unspecified gestational age Ordered: 03/01/2024[facility] HealthcareComment on above:Ordered: 03/01/2024SURESWAB(R) ADVANCED VAGINITIS PLUS, TMASURESWAB(R) ADVANCED VAGINITIS PLUS, TMA Pathology and Cytology Routine STD exposure Vaginal discharge Ordered: 04/18/2024[facility] Work Phone: comment on above:Ordered: 04/18/2024Thyrotropin [Units/volume] in Serum or PlasmaTSH Lab Routine PCOS (polycystic ovarian syndrome) Ordered: 11/09/2023[facility] HealthcareComment on above:Ordered: 11/09/2023 Thyroxine (T4) free [Mass/volume] in Serum or PlasmaT4, free Lab Routine PCOS (polycystic ovarian syndrome) Ordered: 11/09/2023[facility] HealthcareComment on above:Ordered: 11/09/2023 Payers DatePayer CategoryPayerPolicy [id number] [facility] [place] PPO xxxxxxxxxxxx 2014-Present [address] [place], [place] [address]skekugjsbfsg [id number] Care Other (unspecified)[facility] [id number] Health Insurance 1.2.840.829554.1.13.693.2.7.3.111411.74667-29-7731Fqjfkdu Health Insurance [id number] 2.16.840.1.446718.3.579.2.29399-32-1033Hkgwnbp [id number] 2.16840.1.707039.3.57[id number] 2.16840.1.546235.3.57[id number] 2.16840.1.831654.3.57[id number] 2.16840.1.208574.3.579.2.95380-80-7472Rykrjrx6980163 2.840.1.663139.3.579.2.96207-35-1888Jkpfeog7771543 2.840.1.548072.3.57[id number] 2.840.1.492968.3.579.[id number] 2.840.1.405199.3.579.2.60957-13-8255Wyvkaic3740085 2.840.1.161952.3.579.2.66117-99-8923Rgkhsvl5734052 2.840.1.192573.3.57[id number] 2.840.1.443814.3.579.[id number] 2.16840.1.386828.3.579.[id number] 2.16840.1.479551.3.579.2.819438-99-7689Xpghrkf74541371 2.16840.1.327118.3.579.[id number] 2.16840.1.491738.3.579.2.260917-63-3795Bwzggww77691078 2..1.291786.3.579.[id number] 2..1.253482.3.579.[id number] 2..1.477458.3.579.2.190857-06-1324Wtygxrb2707108 2..1.469311.3.579.2.842953-35-1378Qcslqrm1402378 2..1.854255.3.579.2.724337-40-6152Xdjqnzh7546490 2..1.562299.3.579.2.178666-14-9482Irrkiyu2622794 2..1.620699.3.579.2.634882-54-3657Aryjhuk3603014 2..1.746547.3.579.2.512273-13-8549Devglij0102227 2..1.137645.3.579.2.180412-62-4424Jzvaolg1706917 2..1.930903.3.579.2.565771-99-2437Xszomsf9784573 2..1.186289.3.579.2.587358-52-3027Kcxgyzc2658879 2..1.546090.3.579.2.535596-51-0468Uboeart9692323 2..1.746317.3.579.2.391727-38-4893Kgsaalc025801513 2..1.138519.3.579.2.273765-49-4686Alkzihh57048978 2..1.953354.3.579.2.103728-44-0404Squh-fyg00-[id number] 18-66-[id number] Social History DateTypeDetailFacilityStart: 05-08-2019 End: 06-39-8373Jjhmbmr smoking status NHISNever smokerOhio[facility]: 05-08-2019 End: 30-52-3041Fsapjbr intakeCurrent drinker of alcohol (finding)[facility]: 52-77-9036Giiwjqa CommentsociallyOhioHealth Grady Memorial Hospital: 97-07-7869Hyf Assigned At BirthNot on [facility]: 03-11-2023 End: 52-35-5199Qrfsgmk use and exposureSmokeless tobacco non-userNOMS Healthcare Start: 06-01-2023 End: 16-72-8184Mtkkutb of Social functionNOMS HealthcareStart: 06-01-2023 End: 40-97-2648Nkcbzzp use panelNOGA HealthcareStart: 45-13-9911GmhtjeswhYJKH HealthcareStart: 29-31-7911Lrnprigmsz depression screening qdigbuftsk3MeqIwqj[address] [place], [place] [address]tart: 61-68-2647RhoJyvvqv (finding)[facility] Clinical Notes 11-09-2023 to 11-20-2024 Note Date & RxynIxtwRcogdcsl73-80-4330 History of Present illness Narrative* Matthieu Hu, AARON-LOOM STOP CHECKER - 11/20/2024 2:30 PM EDT Chief Complaint: Hemorrhoids History of Present Illness Douglas Duke is a 29 y.o. female who presents to the office for hemorrhoids. She states theycause very little pain, but intermittently they are itchy and irritable.. They do not bleed. She denies constipation / diarrhea. She has been using tecb-kxn-zuenyvt creams and tucks pads. She has hadher hemorrhoids ever since delivering her son in 2021. She recently delivered her daughter 8 weeks ago. Hemorrhoids did not worsen after this . Review of Systems Constitutional: Negative for fever and unexpected weight change. HENT: Negative for trouble swallowing. Respiratory: Negative for shortness of breath. Cardiovascular: Negative for chest pain. Gastrointestinal: Negative for abdominal pain, diarrhea, constipation and blood in stool. Hemorrhoids Genitourinary: Negative for dysuria and difficulty urinating. Musculoskeletal: Negative for gait problem. Skin: Negative for rash and wound. Neurological: Negative for dizziness, weakness and light-headedness. Hematological: Does not bruise/bleed easily. Psychiatric/Behavioral: Negative for confusion. History reviewed. No pertinent past medical history. History reviewed. No pertinent surgical history. Allergies Allergen Reactions Spironolactone Rash Possible allergy; not likely as rash was only on the neck and has had rash since being off of Aldactone Current Outpatient Medications: levonorgestreL (MIRENA) 21 mcg/24hr (up to 8 yrs) 52 mg IUD, 1 each by intrauterine route once., Disp: , Rfl: tretinoin (RETIN-A) 0.1 % cream, Apply 1 Application topically nightly., Disp: 45 g, Rfl: 2 Social History Socioeconomic History Marital status: Spouse name: Not on file Number of children: Not on file Years of education: Not on file Highest education level: Not on file Occupational History Not on file Tobacco Use Smoking status: Never Smokeless tobacco: Never Vaping Use Vaping status: Never Used Substance and Sexual Activity Alcohol use: Yes Drug use: Never Sexual activity: Not on file Other Topics Concern Not on file Social History Narrative Not on file Social Drivers of Health Financial Resource Strain: Not on file Food Insecurity: No Food Insecurity (11/30/2023) Hunger Screening Food Insecurity - Worry: Never True Food Insecurity - Inability: Never True Transportation Needs: Not on file Physical Activity: Not on file Stress: Not on file Social Connections: Not on file Interpersonal Safety: Not on file Housing Instability: Not on file History reviewed. No pertinent family history. Objective Patient was offered a medical dumb waiter operator, and all sensitive parts of the examination were performed with the [place] of today's record present, unless otherwise indicated. Physical Exam Exam conducted with a dumb waiter operator present. Constitutional: General: She is not in acute distress. Appearance: Normal appearance. She is not ill-appearing. HENT: Head: Normocephalic and atraumatic. Mouth/Throat: Mouth: Mucous membranes are moist. Eyes: Pupils: Pupils are equal, round, and reactive to light. Cardiovascular: Rate and Rhythm: Normal rate. Pulmonary: Effort: Pulmonary effort is normal. No respiratory distress. Genitourinary: Rectum: No mass, tenderness or anal fissure. Normal anal tone. Comments: External skin tags anterior position Musculoskeletal: General: Normal range of motion. Skin: General: Skin is warm and dry. Neurological: Mental Status: She is alert and oriented to person, place, and time. Mental status is at baseline. Vital Signs: Height 163 cm (5' 4.17 ), weight 56.2 kg (124 lb). Respiratory Source: No data recorded Admission Weight: Weight: 56.2 kg (124 lb) Labs No results found for: WBC , HGB , HCT , MCV , PLT No results found for: GLU , CALCIUM , NA , K , CO2 , CL , BUN , CREATININE No results found for: AMYLASE No results found for: LIPASE No results found for: ALT , AST , GGT , ALKPHOS , LABBILI No results found for: INR , PROTIME Assessment Douglas Duke is a 29 y.o.female with skin tag of anus likely d/t previous hemorrhoids. Plan Would recommend postponing surgical intervention for skin tag if she plans on having more children as hemorrhoids/skin tags are likely to return during . She is going to go home and talk to her and will call back if she wishes to proceed. Evaluation included: Preparing to see the patient (e.g., review of tests) Obtaining and/or reviewing separately obtained history Performing a medically appropriate examination and/or evaluation Counseling and educating the patient/family/caregiver Referring and communicating with other health child care associate Skin tag of anus [K64.4] MATTHIEU HU APRN-ANDREW [facility] General Surgery [place] This note was created with the assistance of a speech recognition program. While intending to generate a timely document that accurately reflects the content of the visit, no guarantee can be provided that every grammatical or spelling mistake has been or will be identified or corrected. Thank you for your understanding. KARY Kelley 11/21/24 0957 documented in this encounterOhioHealth Doctors Hospital09-23-2025 History of Present illness Narrative* Laura Millan, AG - 11/20/2024 1:00 PM EDTAssociated Order(s): IUD Insertion Post-Procedure Diagnose(s): Encounter for IUD insertion Reason for Appointment: Patient ID: Douglas Duke is a 29 y.o. female who presents for Mirena Insertion Patient presents today for a IUD Insertion appointment. MEDICATIONS Current Outpatient Medications Medication Instructions [...] nursing note reviewed. Exam conducted with a dumb waiter operator present. Vitals: Estimated body mass index is 21.97 kg/m as calculated from the following: Height as of 07/10/24: 5' 4 . Weight as of this encounter: 128 lb. BP: 110/74 Patient's last menstrual period was 12/28/2023. ASSESSMENT & PLAN Assessment/Plan Encounter Diagnosis: ICD-10-CM 1. Encounter for IUD insertion Z30.430 POCT , urine manually resulted IUD Insertion IUD Insertion Performed by: Ramses Cantor DO Authorized by: Ramses Cantor DO Procedure: IUD insertion Consent obtained by patient, parent, or legal power of consumer attorney - including discussion of procedurerisks and benefits, patient questions answered, and patient education provided: yes risk: reasonably certain the patient is not Immediately prior to procedure a time out was called: no Pelvic exam performed: no Speculum placed in vagina: yes Cervix cleaned and prepped: yes Tenaculum/Allis/Ring Forceps applied to cervix: yes Anesthesia used: no IUD inserted without complications: yes OSM: 52 mg Levonorgestrel 20 MCG/DAY Patient tolerated procedure well: yes Inserted with ultrasound guidance: no Intended removal date: 5 years Insertion comments: IUD Insertion: Patient presents today [...] cut to the length from external os. Allinstruments were removed from the vagina. Post-procedure instructions given. All of patients questions were answered and she expressed understanding. Advised to call interim with any questions or concerns. Follow Up: Patient is to return to the office in 4 weeks for a string check. Documented by Laura Millan LPN on behalf of: Ramses Cantor DO documented in this encounterSt. Louis Children's HospitalBewmylmecq74-50-6253 History of Present illness Narrative* Laura Millan LPN - 10/31/2024 1:50 PM EDT Reason for Appointment: Patient ID: Douglas Duke is a 29 y.o. female who presents for Follow-up Patient presents today for Post Follow Up appointment. MEDICATIONS Current Outpatient Medications [...] nursing note reviewed. Exam conducted with a dumb waiter operator present. Vitals: Estimated body mass index is 22.45 kg/m as calculated from the following: Height as of 07/10/24: 5' 4 . Weight as of this encounter: 130 lb 12.8 oz. BP: 110/72 Patient's last menstrual period was 12/28/2023. ASSESSMENT & PLAN ICD-10-CM 1. 6 weeks follow-up ([facility]) Z39.2 Post Follow Up: Patient is doing well but has complaints of hemorrhoids, pt to be referred to general surgery for evaluation. Patient presents today for 6 week visit. Patient is s/p Vaginal delivery. Patient states depression but denies suicidal and homicidal ideations. All options were discussed with the patient regarding control and patient desires IUD. Follow Up: Patient is to return for annual unless needed otherwise. Documented by Laura Millan LPN on behalf of: Ramses Cantor DO documented in this encounterSt. Louis Children's HospitalQppmxsuenc56-93-3646 History of Present illness Narrative* Laura Millan LPN - 09/11/2024 9:40 AM EDT Reason for Appointment: Patient ID: Douglas Duke [...] nursing note reviewed. Exam conducted with a dumb waiter operator present. Vitals: Estimated body mass index is 25.4 kg/m as calculated from the following: Height as of 07/10/24: 5' 4 . Weight as of this encounter: 148 lb. BP: 110/62 Patient's last menstrual period was 12/28/2023. ASSESSMENT & PLAN ICD-10-CM 1. Third trimester ([facility]) Z34.93 POCT urinalysis dipstick manually resulted 2. 36 weeks gestation of ([facility]) Z3A.36 Return OB: Patient presents today [...] of: Ramses Cantor DO documented in this encounterSt. Louis Children's HospitalGlglqqegkc01-40-5859 History of Present illness Narrative* Laura Millan LPN - 09/04/2024 9:40 AM EDT Reason for Appointment: Patient ID: Douglas Duke [...] nursing note reviewed. Exam conducted with a dumb waiter operator present. Vitals: Estimated body mass index is 25.06 kg/m as calculated from the following: Height as of 07/10/24: 5' 4 . Weight as of this encounter: 146 lb. BP: 112/70 Patient's last menstrual period was 12/28/2023. ASSESSMENT & PLAN ICD-10-CM 1. Third trimester ([facility]) Z34.93 POCT urinalysis dipstick manually resulted CULTURE, GROUP B STREP WITH SUSCEPTIBLITY CULTURE, GROUP B STREP WITH SUSCEPTIBLITY 2. 35 weeks gestation of ([facility]) Z3A.35 Patient is doing well but [...] of: Ramses Cantor DO documented in this encounterSt. Louis Children's HospitalFcsixkrxwv11-01-6240 History of Present illness Narrative* Laura Millan LPN - 08/21/2024 9:40 AM EDT Reason for Appointment: Patient ID: Douglas Duke [...] nursing note reviewed. Exam conducted with a dumb waiter operator present. Vitals: Estimated body mass index is 24.72 kg/m as calculated from the following: Height as of 07/10/24: 5' 4 . Weight as of this encounter: 144 lb. BP: 118/62 Patient's last menstrual period was 12/28/2023. ASSESSMENT & PLAN ICD-10-CM 1. Third trimester ([facility]) Z34.93 Urine dip 2. 34 weeks gestation of ([facility]) Z3A.34 Urine dip Return OB: Patient [...] of: Ramses Cantor DO documented in this encounterSt. Louis Children's HospitalXmhdeiqljn12-59-8588 History of Present illness Narrative* PROMISE Terry - 08/07/2024 9:30 AM EDT Reason for Appointment: Patient ID: Douglas Duke [...] frequent movement. labor precautions was discussed/given and patientwas instructed to perform kick counts three times a day. Orders Placed This Encounter Procedures POCT urinalysis dipstick manually resulted Follow Up: Patient is to return to office in 2 week for routine OB appointment. Documented by Cande Barkley MA on behalf of: PROMISE Terry documented in this encounterSt. Louis Children's HospitalKdleztofwc86-40-7873 History of Present illness Narrative* Laura Millan LPN - 07/25/2024 1:10 PM EDT Reason for Appointment: Patient ID: Douglas Duke [...] nursing note reviewed. Exam conducted with a dumb waiter operator present. Vitals: Estimated body mass index is [...] of: Ramses Cantor DO documented in this encounterSt. Louis Children's HospitalNsndtsuybo83-97-6546 History of Present illness Narrative* Laura Millan LPN - 07/10/2024 9:10 AM EDT Reason for Appointment: Patient ID: Douglas Duke [...] nursing note reviewed. Exam conducted with a dumb waiter operator present. Vitals: Estimated body mass index is [...] of: Ramses Cantor DO documented in this encounterSt. Louis Children's HospitalUxoejvjgnz50-11-0953 History of Present illness Narrative* PROMISE Terry - 06/14/2024 8:30 AM EDT Reason for Appointment: Patient ID: Douglas Duke [...] of: Ramses Cantor DO documented in this encounterSt. Louis Children's HospitalBeaiixllwx51-09-7427 History of Present illness Narrative* Heike Nayak, OCCASIONAL CAREGIVER - 05/17/2024 9:20 AM EDT Reason for Appointment: Patient ID: Douglas Duke [...] nursing note reviewed. Exam conducted with a dumb waiter operator present. Vitals: There is no height or [...] management. Discussed upcoming flying. Patient to return toclinic in 4 weeks. Documented by Heike Nayak LPN on behalf of:Diana Samuel PA-C documented in this encounterSt. Louis Children's HospitalCpavdqrqdd71-57-3233 History of Present illness Narrative* PROMISE Terry - 04/18/2024 11:20 AM EST Reason for Appointment: Patient ID: Douglas Duke [...] obtained without difficulty and patient was given [facility] order to have obtained. Orders Placed This Encounter Procedures US OB 14+ weeks anatomy scan CHLAMYDIA TRACHOMATIS (GENITO/STI) Neisseria gonorrhea DNA probe, direct Alpha fetoprotein, maternal POCT urinalysis dipstick manually resulted Follow Up: Patient is to return to our office in 4 weeks for routine OB appointment Documented by PROMISE Terry on behalf of: Ramses Sakshi, DO documented in this encounterSt. Louis Children's HospitalBxliasqmyy87-94-8279 History of Present illness Narrative* Laura Millan, AG - 03/21/2024 11:10 AM EST Reason for Appointment: Patient ID: Douglas Duke [...] nursing note reviewed. Exam conducted with a dumb waiter operator present. Vitals: There is no height or [...] or undercooked meat, and stay away from [facility]. Patient has been consulted regarding any further do's and don'tsof . Patient voiced understanding and all questions and concerns were answered. Orders Placed This Encounter Procedures POCT urinalysis dipstick manually resulted Follow Up: Patient is to return in 4 weeks for routine OB appointment. Documented by Laura Millan LPN on behalf of: Ramses Cantor DO documented in this encounterSt. Louis Children's HospitalQiuqputkgu28-48-4667 History of Present illness Narrative* Nathalia Felix LPN - 03/01/2024 9:00 AM EST Reason for Appointment: Patient ID: Douglas Duke [...] drink 6-8 glasses of water a day, eatno raw or undercooked meat, and stay away from [facility]. Patient has also been advised to not change litter boxes and eat 6 small meals a day. Patient has been consulted regarding the do's and don'ts ofpregnancy. Patient was given labs and all questions [...] by: Nathalia Felix LPN documented in this encounterSt. Louis Children's HospitalUzeavposdw71-76-1717 History of Present illness Narrative* Pa Dasilva MD - 11/30/2023 10:30 AM EDT Subjective Patient ID: Douglas Duke is a [...] past medical history, past social history, past surgicalhistory, and problem list. Review of Systems Objective [...] suggestive of a sustained arrhythmia such as SVTand likely represent occasional ectopic beat. No further evaluation required at this time. Follow-up as needed. Diagnoses and all orders for this visit: Palpitation Acne vulgaris - tretinoin (RETIN-A) 0.1 % cream; Apply 1 Application topically nightly. documented in this encounterOhioHealth Doctors Hospital09-11-2024 History of Present illness Narrative* Laura Millan LPN - 11/09/2023 3:10 PM EDT Reason for Appointment: Patient ID: Douglas Duke [...] nursing note reviewed. Exam conducted with a dumb waiter operator present. Vitals: There is no height or [...] to take Femara on days 3-7 of cycle.On day 21 of cycle patient is to [...] of: Ramses Cantor DO [facility] Diagnosis Female infertility Female infertility of unspecified origin PCOS (polycystic ovarian syndrome) Polycystic ovaries Abnormal uterine bleeding (AUB) documented [facility] encounter [facility]* Diagnosis Missed menses , unspecified gestational age Encounter for supervision of normal first in first trimester documented [facility] encounter [facility]* Diagnosis First trimester state, incidental 12 weeks gestation of documented in this encounter [facility]* Diagnosis Palpitation- Primary Palpitations Acne vulgaris Other acne [facility] Diagnosis Second trimester state, [...] in this encounter [facility]* Diagnosis 6 weeks follow-up (HHS-HCC) documented [facility]* Diagnosis Encounter for IUD insertion Insertion of intrauterine contraceptive device documented [facility]* Diagnosis Skin tag of anus- Primary [facility] filedocumented [facility] filedocumented in this [facility] Summary Purpose Family History No Family History Records FoundNo Family History Records FoundNo Family History Records FoundNo Family History Records FoundNo Family History Records Found Advance Directives TypeDate RecordedPatient RepresentativeExplanationAdvance Directives and Living WillPower of Sheet Ironworker Assessments Diagnosis Screen for STD (sexually transmitted disease) Screening examination for venereal disease Well woman exam with routine gynecological exam Routine gynecological examination Reason for Referral SpecialtyDiagnoses / ProceduresReferred By ContactReferred To Contact Diagnoses Acne vulgaris aP Dasilva MD [address] [place] [address], [place] [address] Referral IDStatusReasonStart DateExpiration DateVisits RequestedVisits [id number] Additional Source Comments INFORMATION SOURCE (unrecogn ized section and content) DATE CREATED AUTHOR 05/17/2019 [facility] DATE CREATED AUTHOR AUTHOR'S ORGANIZ ATION 12/21/2019 [facility] DATE CREATED AUTHOR AUTHOR'S ORGANIZ ATION 06/05/2022 [facility] DATE CREATED AUTHOR AUTHOR'S ORGANIZ ATION 11/21/2024 [facility] DATE CREATED AUTHOR AUTHOR'S ORGANIZ ATION 11/21/2024 [facility] Reason for Visit (unrecogniz ed section and content) ReasonCommentsInfertilityPt present today to discuss fertilityReasonComments AmenorrheaReasonCommentsRoutine VisitReasonCommentsnew patientGet establishedReasonCommentsPostpartum Follow-upReasonCommentsMirena Insertion ReasonCommentsHemorrhoidsHEMORRHOID, REFERRED BY DR CANTOR Care Teams (unrecognized sec tion and content) Team MemberRelationshipSpecialtyStart DateEnd Date Pa Dasilva MD [address] [place] [address], [address] [place], [place] [id number] PCP - [id number]/2/24Team MemberRelationshipSpecialtyStart DateEnd Date Pa Dasilva MD [address] [place] [address], [address] [place], [place] [id number] PCP - [id number]/2/24 FOR RECORDS PERTAINING TO PATIENTS WHO ARE [...] BE BASED ON THE PRIMARY CLINICAL RECORDS. [facility]. provides no warranty or guarantee of the accuracy or completeness of information in this document.
[2024-12-20 16:09] LABS: Age Gdln ACOG Testing Note (.); IGP, rfx Aptima HPV ASCU Note (.)
== END 2024-12-18 12:59 | disposition home or self-care (01) ==
LOC: LAB 12:58
PROVIDERS: PCP Internal Medicine; Visit Provider Obstetrics & Gynecology
DX: Z01.419 Encounter for gynecological examination (general) (routine) without abnormal findings (principal)
CPT/HCPCS: 88175